=== PATIENT | female | born 1975 | race Caucasian/White ===

== ENCOUNTER → 2019-09-05 | Outpatient (CLI) | payer BC ==
[~2019-09-05] MED LIST: ACET325T38 PO; AMOX-358 PO; CATHETER FLUSH 10 ML SYR IV PRN; DICL100G18 TP; DIET75TA31 PO; DOXY100C2 PO; HOLD METFORMIN - RECEIVED CONTRAST 20 ML VIAL IV SCH; IOHEXOL 350 MG/ML 100 ML (OMNIPAQUE 350) VIAL IV ONE; LINA5TAB PO; LISI1TAB29 PO; NS 100 ML (IVPB) BAG IV ONE
[2019-09-05 15:07] LABS: HEMATOCRIT 40 % (35-52); HEMOGLOBIN 13.1 G/DL (11.5-16.0); MEAN CORPUSCULAR HEMOGLOBIN 27 PG (25-34); MEAN CORPUSCULAR HGB CONC 33 G/DL (32-36); MEAN CORPUSCULAR VOLUME 82 FL (80-99); MEAN PLATELET VOLUME 9.3 FL (7.4-10.4); PLATELET COUNT 253 10^3/uL (130-400); RED CELL DISTRIBUTION WIDTH 12.9 % (10.0-14.5); WHITE BLOOD COUNT 12.8 10^3/uL (4.3-11.0)
[2019-09-05 15:08] LABS: BASOPHILS # (AUTO) 0.1 10^3/uL (0.0-0.1); BASOPHILS % (AUTO) 1 % (0-10); EOSINOPHILS # (AUTO) 0.9 10^3/uL (0.0-0.3); EOSINOPHILS % (AUTO) 7 % (0-10); LYMPHOCYTES # (AUTO) 2.9 X 10^3 (1.0-4.0); LYMPHOCYTES % (AUTO) 23 % (12-44); MONOCYTES # (AUTO) 0.6 X 10^3 (0.0-1.0); MONOCYTES % (AUTO) 4 % (0-12); NEUTROPHILS # (AUTO) 8.4 X 10^3 (1.8-7.8); NEUTROPHILS % (AUTO) 66 % (42-75)
[2019-09-05 15:45] LABS: CARBON DIOXIDE 25 MMOL/L (21-32); CHLORIDE 96 MMOL/L (98-107); POTASSIUM 4.1 MMOL/L (3.6-5.0); SODIUM 136 MMOL/L (135-145)
[2019-09-05 15:46] LABS: ALANINE AMINOTRANSFERASE 17 U/L (0-55); ALBUMIN 4.3 GM/DL (3.2-4.5); ALKALINE PHOSPHATASE 133 U/L (40-136); BUN/CREATININE RATIO 16; CALCIUM 9.9 MG/DL (8.5-10.1); CREATININE SERUM 0.69 MG/DL (0.60-1.30); GFR ESTIMATED > 60; GLUCOSE 138 MG/DL (70-105); TOTAL PROTEIN 8.3 GM/DL (6.4-8.2)
[2019-09-05 15:49] LABS: BILIRUBIN,TOTAL 0.3 MG/DL (0.1-1.0)
--- NOTE | 2019-09-05 16:21 | Diagnostic Imaging Report ---
EXAMINATION: CT Abdomen and Pelvis with intravenous contrast. TECHNIQUE: Multiple contiguous axial images were obtained through the abdomen and pelvis after the uneventful administration of intravenous contrast. All CT scans use one or more of the following dose optimizing techniques: automated exposure control, MA and/or KvP adjustment based on a patient size and exam type, or iterative reconstruction. HISTORY: LT INGUINAL PAIN COMPARISON: None available. FINDINGS: Limited views of the lower thorax are unremarkable. The liver is normal without focal lesion. There is no biliary ductal dilation. Gallbladder is normal. Pancreas is normal. Spleen is normal. Adrenal glands are normal. The kidneys are normal. There is no hydronephrosis. Urinary bladder is normal. Uterus is enlarged, likely due to fibroids but poorly evaluated on CT. No thrombosis is seen within the inferior vena cava or iliac veins. There are no dilated loops of large or small bowel. No obstruction or inflammation. No free fluid or air. No abdominal or pelvic lymphadenopathy. There is however left inguinal lymphadenopathy with lymph nodes measuring up to 2.1 x 3.1 cm. Aorta is normal in caliber without aneurysm. There are no suspicious osseous lesions. IMPRESSION: 1. Left inguinal lymphadenopathy which may be related to an inflammatory process in the left leg. Dictated by: Dictated on workstation # [id number]
== END ==
LOC: LAB FS 14:33
PROVIDERS: ATTEND Nurse Practitioner Family
DX: R59.0 Localized enlarged lymph nodes (principal); I80.9 Phlebitis and thrombophlebitis of unspecified site; R10.32 Left lower quadrant pain; L03.116 Cellulitis of left lower limb
CPT/HCPCS: 36415; 74177; 80053; 85025

== ENCOUNTER → 2019-09-12 | Outpatient (CLI) | payer BC ==
[~2019-09-12] MED LIST changes: -CATHETER FLUSH 10 ML SYR IV PRN; -HOLD METFORMIN - RECEIVED CONTRAST 20 ML VIAL IV SCH; -IOHEXOL 350 MG/ML 100 ML (OMNIPAQUE 350) VIAL IV ONE; -NS 100 ML (IVPB) BAG IV ONE
[2019-09-12 13:10] LABS: HEMOGLOBIN 11.3 G/DL (11.5-16.0); MEAN CORPUSCULAR HEMOGLOBIN 27 PG (25-34); WHITE BLOOD COUNT 12.1 10^3/uL (4.3-11.0)
[2019-09-12 13:11] LABS: BASOPHILS % (AUTO) 0 % (0-10); EOSINOPHILS # (AUTO) 0.3 10^3/uL (0.0-0.3); EOSINOPHILS % (AUTO) 3 % (0-10); HEMATOCRIT 35 % (35-52); LYMPHOCYTES # (AUTO) 2.3 X 10^3 (1.0-4.0); LYMPHOCYTES % (AUTO) 19 % (12-44); MEAN CORPUSCULAR HGB CONC 32 G/DL (32-36); MEAN CORPUSCULAR VOLUME 84 FL (80-99); MEAN PLATELET VOLUME 9.2 FL (7.4-10.4); MONOCYTES # (AUTO) 0.7 X 10^3 (0.0-1.0); MONOCYTES % (AUTO) 6 % (0-12); NEUTROPHILS # (AUTO) 8.6 X 10^3 (1.8-7.8); NEUTROPHILS % (AUTO) 71 % (42-75); PLATELET COUNT 277 10^3/uL (130-400); RED CELL DISTRIBUTION WIDTH 12.9 % (10.0-14.5)
[2019-09-12 13:12] LABS: BASOPHILS # (AUTO) 0.1 10^3/uL (0.0-0.1)
[2019-09-12 13:23] LABS: BAND NEUTROPHILS 3 %; BASOPHILS % (MANUAL) 2 %; EOSINOPHILS % (MANUAL) 1 %; LYMPHOCYTES % (MANUAL) 18 %; MONOCYTES % (MANUAL) 7 %; NEUTROPHILS % (MANUAL) 69 %
== END ==
LOC: LAB FS 12:20
PROVIDERS: ATTEND Nurse Practitioner
DX: R50.9 Fever, unspecified (principal)
CPT/HCPCS: 36415; 85007; 85027

== ENCOUNTER → 2019-10-06 | Outpatient (CLI) | payer BC ==
--- NOTE | 2019-10-06 17:05 | Diagnostic Imaging Report ---
PROCEDURE: US Non-ob pelvis comp/trans. TECHNIQUE: Multiple realtime grayscale images were obtained of the pelvis in various projections endovaginally. Transabdominal imaging was also performed. INDICATION: Dysfunctional uterine bleeding. FINDINGS: Uterus measures 11.8 x 8.9 x 9.1 cm. Uterus is anteverted. There is a complex mass in the left fundus measuring 7.5 x 6.8 x 5.5 cm. This likely reflects degenerating fibroid, although other etiology cannot be excluded. Endometrial thickness is 1.04 cm. There is a 1.5 cm nabothian cyst. Both ovaries are normal in size and morphology and demonstrate normal blood flow. There are no adnexal masses. There is no free pelvic fluid. IMPRESSION: Complex mass in the uterus measuring up to 7.5 x 6.75 x 5.5 cm. This is likely degenerating fibroid, although other etiology certainly cannot be excluded. This can be further characterized with gadolinium-enhanced MRI. Incidental nabothian cyst. Otherwise, unremarkable pelvic ultrasound. Dictated by: Dictated on workstation # [id number]
== END ==
LOC: RAD 13:37
PROVIDERS: ATTEND Obstetrics & Gynecology
DX: N85.9 Noninflammatory disorder of uterus, unspecified (principal); N93.8 Other specified abnormal uterine and vaginal bleeding
CPT/HCPCS: 76830; 76856

== ENCOUNTER 2020-01-27 05:44 | Outpatient (RCR) | payer BC ==
[~2020-01-27] VITALS: Ht 170.2 cm; Wt 141.4 kg
== END 2020-01-27 11:01 | disposition home or self-care (01) ==
LOC: PREOP 05:44
PROVIDERS: ATTEND Obstetrics & Gynecology
DX: Z01.818 Encounter for other preprocedural examination (principal)

== ENCOUNTER 2020-02-02 09:22 | Day surgery (SDC) | payer BC ==
[2020-02-02] VITALS (10 sets, daily range): BP systolic 99–147; BP diastolic 50–85
[~2020-02-02] VITALS: Ht 170.2 cm; Wt 141.4 kg
[2020-02-02] MEDS ORDERED: LACTATED RINGERS 1,000 ML IV PRN (09:29)
--- OUTSIDE RECORDS SUMMARY | 2020-02-02 09:51 | XMS REPORT ---
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 Active 41362770 Problem Type 2 diabetes mellitus wit hout complication, without long-term current use of insulin E11.9 Active 198622801 Problem Chronic seasonal allergic rhinitis, unspecified trigger J30.2 Active 378626849 Problem Essential hypertension I10 Active 88608964 Problem Hammertoe of left foot M20.42 Active 557648687 Problem 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 Active 188802433 Problem Dysthymia F34.1 Active 12841005 Problem Thrombophlebitis of superficial veins of left lower ex tremity I80.02 Active [id number] Problem Lumbar disc disease M51.9 Active 74945952 Problem Hammertoe of right foot M20.41 Active 187651733 Problem Skin tags, multiple acquired L91.8 A ctive 782229594 Problem Irregular menstrual bleeding N92.6 A ctive 42366988 Problem Migraine without status migr ainosus, not intractable, unspecified migraine type G43.909 Active 83377488 ALLERGIES No Information ENCOUNTERS Encounter Location Date Diagnosis [facility] [address] [facility] [id number] [place] [id number] December, OUTREACH [facility] [address] [address] [id number] [address] Nov, Dental examination Z01.20 ; Oral health maintenance status requiring routine preventive dental care K08.9 ; Caries K02.9 and Gingivitis K05.10 [facility] [address] [facility] [id number] [address] [address] 16 Nov, 2019 [facility] [place] [address] [facility] [id number] [place] [address] 15 Nov, 2019 Essential hypertension I10 and Thrombophlebitis of superficial veins of left lower extremity I80.02 [facility] [place] [address] [facility] [id number] [place], [place] [address] 14 Nov, [address] [id number] [place] [address] 13 Nov, 2019 Essential hypertension I10 a nd Dizziness R42 [facility] [place] [address] [facility] [id number] [place] [address] 13 Nov, 2019 Dizziness R42 [facility] [place] [address] [facility] [id number] [place] [address] 09 Nov, 2019 Essential hypertension I10 [facility] [place] [address] [facility] [id number] [place] [address] 08 Nov, 2019 Essential hypertension I10 and Dizziness R42 [address] [id number] [place] [address] Oct, Post-infectious glomerulonep hritis N05.[address] [id number] [place] [address] Oct, Post-infectious glomerulonep hritis N05.[address] [id number], [place] [address] Sep, Post-infectious glomerulonep hritis N05.[address] [id number] [place] [address] Sep, Post-infectious glomerulonep hritis N05.9 [facility] [address] [facility] [id number] [place] [address] 18 Sep, 2019 Fever, unspecified fever cause R50.[address] [id number] [place] [address] 13 Sep, 2019 Post-infectious glomerulonep hritis N05.9 [facility] [address] [id number] [place] [address] 12 Sep, 2019 Thrombophlebitis of superfic ial veins of left lower extremity I80.[address] [id number], [place] [address] 11 Sep, 2019 Thrombophlebitis of superfic ial veins of left lower extremity I80.02 and 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 [id number], [place] [address] 11 Sep, 2019 Thrombophlebitis of superfic ial veins of left lower extremity I80.02 and 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 [id number], [place] [address] 10 Sep, 2019 Thrombophlebitis I80.9 ; Acu te kidney failure N17.9 and Flank pain R10.[address] [id number], [place] [address] 06 Sep, [address] [id number], [place] [address] 06 Sep, 2019 Acute renal failure, unspeci fied acute renal failure type N17.[address] [id number] [place] [address] 05 Sep, [address] [id number], [place] [address] 05 Sep, 2019 Acute renal failure, unspeci fied acute renal failure type N17.9 ; Varicose veins of both lower extremities with complications I83.893 and Thrombophlebitis of superficial veins of left lower extremity I80.02 [facility] [address] [facility] [id number] [place] [address] 05 Sep, 2019 Acute renal failure, unspeci fied acute renal failure type N17.9 [facility] [address] [facility] [id number] [place] [address] Sep, [facility] [address] [facility] [id number] [place] [address] Sep, [address] [id number] [place] [address] Sep, Acute kidney failure N17.[address] [id number], [place] [address] Sep, Acute kidney failure N17.[address] [id number], [place] [address] Aug, Fever, unspecified fever cau se R50.[address] [id number] [place] [address] Aug, Cellulitis of left lower ext remity L03.116 and Thrombophlebitis I80.9 [facility] [address] [facility] [id number] [place] [address] Aug, [address] [id number], [place] [address] Aug, [address] [id number], [place] [address] Aug, Thrombophlebitis I80.9 ; Lef t inguinal pain R10.32 and Cellulitis of left lower extremity L03.[address] [id number], [place] [address] Aug, Cellulitis of left lower ext remity L03.[address] [id number], [place] [address] Aug, [address] [id number], [place] [address] Aug, [address] [id number], [place] [address] Aug, Thrombophlebitis of superfic ial veins of left lower extremity I80.02 and Cellulitis of left lower extremity L03.116 [facility] [address] [id number], [place] [address] Aug, Cellulitis of left lower ext remity L03.116 and Thrombophlebitis of superficial veins of left lower extremity I80.02 [facility] [address] [id number], [place] [address] Jul, Type 2 diabetes mellitus wit hout complication, without long-term current use of insulin E11.9 ; Essential hypertension I10 ; Sore throat J02.9 ; Skin tags, multiple acquired L91.8 and Irregular menstrual bleeding N92.6 [facility] [address] 340 [id number], [place] [address] Jul, [address] [id number], [place] [address] May, Mixed hyperlipidemia E78.2 a nd Encounter for examination for insurance purposes Z02.6 [facility] [address] 340 [id number], [place] [address] May, Encounter for examination fo r insurance purposes Z02.6 [facility] [address] [id number], [place] [address] Apr, Nasopharyngitis J00 [facility] [address] [id number], [place] [address] December, [facility] [address] 340 [id number], [place] [address] December, Tonsillitis J03.90 [facility] [address] 340 [id number], [place] [address] Nov, Pharyngitis due to Streptoco ccus species J02.0 and Migraine without status migrainosus, not intractable, unspecified migraine type G43.909 [facility] [address] [id number] [place] [address] Nov, [facility] [address] [id number] [place] [address] Nov, Strep pharyngitis J02.0 ; So re throat J02.9 and Morbid obesity E66.01 [facility] [address] [id number] [place] [address] Nov, TB skin/subcutaneous, other test A18.4 [place] [address] [address] 11 Jul, 2018 Weight loss counseling, enco unter for Z71.3 [place] [address] [address] Jun, [place] [address] [address] 14 Jun, 2018 Weight loss counseling, enco unter for Z71.3 ; Essential hypertension I10 ; Irregular menstrual bleeding N92.6 ; Skin tags, multiple acquired L91.8 ; Abdominal pain R10.9 and BMI 45.0-49.9, adult Z68.42 [place] [address] [address] Jun, Essential hypertension I10 [place] [address] [address] Jun, Dependent edema R60.9 [place] [address] [address] May, Type 2 diabetes mellitus wit hout complication, without long-term current use of insulin E11.9 [place] [address] [address] May, Type 2 diabetes mellitus wit hout complication, without long-term current use of insulin E11.9 ; Essential hypertension I10 ; Dependent edema R60.9 ; Encounter for weight management Z76.89 ; Skin tag L91.8 and BMI 50.0- 59.9, adult Z68.43 [place] [address] [address] Feb, [place] of foot L84 ; Hammertoe of right foot M20.41 ; Hammertoe of left foot M20.42 and Type 2 diabetes mellitus with diabetic neuropathy, unspecified whether education consultant insulin use E11.[address] [address] Feb, [place] [address] [address] Jan, [address] [address] Jan, Peripheral edema R60.9 ; Ess ential hypertension I10 and BMI 50.0- 59.9, adult Z68.[address] [address] December, [place] [address] [address] December, [address] [address] December, Upper respiratory infection with cough and congestion J06.9 ; Cough R05 ; Skin tags, multiple acquired L91.8 and BMI 45.0-49.9, adult Z68.[address] [address] Nov, Mixed hyperlipidemia E78.[address] [address] Nov, [address] [address] Nov, Establishing care with tiera guadarrama, encounter for Z76.89 ; Type 2 diabetes mellitus without complication, without long-term current use of insulin E11.9 ; Essential hypertension I10 ; Dysthymia F34.1 ; Chronic seasonal allergic rhinitis, unspecified trigger J30.2 ; BMI 45.0-49.9, adult Z68.42 ; Morbid obesity due to excess calories E66.01 ; Toe pain, left M79.675 and Varicose veins of both lower extremities with complications I83.893 [place] [address] [place] [id number] [address] [place] [address] Oct, Chronic seasonal allergic rh initis, unspecified trigger J30.2 ; Cough due to bronchospasm J98.01 and BMI 45.0-49.9, adult Z68.42 [place] [address] [address] Oct, Type 2 diabetes mellitus wit hout complication, without long-term current use of insulin E11.9 [place] [address] [address] Jun, Type 2 diabetes mellitus wit hout complication, without long-term current use of insulin E11.9 ; Dysthymia F34.1 ; Lumbar disc disease M51.9 ; Chronic seasonal allergic rhinitis, unspecified trigger J30.2 and BMI 40.0-44.9, adult Z68.41 [place] [address] [address] May, [place] [address] [place] [id number] [place] [address] Feb, Dysthymia F34.1 ; Lumbar dis c disease M51.9 and Type 2 diabetes mellitus without complication, without long-term current use of insulin E11.9 [place] [address] [place] [id number] [address] [place] [address] Feb, Type 2 diabetes mellitus wit hout complication, without long-term current use of insulin E11.9 [place] [address] [place] [id number] [address] [place] [address] December, Seasonal allergic rhinitis, unspecified allergic rhinitis trigger J30.2 [place] [address] [address] Nov, [facility] [address] [place] [address] Nov, Dysthymia F34.1 and Pre-diab etes R73.03 [facility] [address] [place] [id number] [address] [place] [address] 15 Oct, 2016 Dysthymia F34.1 [place] [address] [address] 07 Jun, 2016 Varicose veins of both lower extremities with complications I83.893 and Lumbar disc disease M51.9 [place] [address] [address] Mar, [place] [address] [address] Oct, [place] [address] [address] Jun, Insect bite of abdomen, init ial encounter S30.871A and Encounter for immunization Z23 [address] [address] Apr, [place] [address] [address] Apr, 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 ; Lumbar back pain 724.2 ; Pre-diabetes 790.29 and Left knee pain 719.46 [place] [address] [address] Mar, [place] [address] [place] [id number] [place] [address] Mar, Cough 786.2 and Drug-induced nausea and vomiting 787.01 [place] [address] [place] [id number] [address] [place] [address] Mar, [facility] [address] [address] Mar, Elevated glucose 790.29 [facility] [address] [id number] [address] [place] [address] Mar, [facility] [address] [id number] [address] [place] [address] Mar, Elevated glucose 790.29 [facility] [address] [id number] [address] [place] [address] Mar, [facility] [address] [id number] [address] [place] [address] Mar, Elevated glucose 790.29 and Degenerative arthritis of lumbar spine 721.3 [place] [address] [id number] [address] [place] [address] Feb, Elevated glucose 790.29 [place] [address] [id number] [address] [place] [address] Feb, Lumbar back pain 724.2 [place] [address] [id number] [address] [place] [address] Feb, Lumbar back pain 724.2 [place] [address] [facility] [id number] [address] [place] [address] Feb, Routine gynecological examin ation V72.31 ; Pap test, as part of routine gynecological examination V76.2 ; Breast cancer screening V76.10 ; Irregular menses 626.4 ; Dysmenorrhea 625.3 and Routine physicl lab exam V72.62 [place] [address] [id number] [address] [place] [address] Jan, Eustachian tube dysfunction 381.81 [place] [address] [id number] [address] [place] [address] Nov, [place] [address] [id number] [address] [place] [address] Nov, [place] [address] [facility] [id number] [address] [place] [address] Sep, [facility] [address] [id number] [address] [place] [address] Sep, [facility] [address] [id number] [address] [place] [address] Aug, [facility] [address] [id number] [address] [place] [address] Aug, [facility] [address] [id number] [address] [place] [address] Jun, [facility] [address] [facility] [id number] [address] [place] [address] Jun, [facility] [address] [facility] [id number] [address] [place] [address] Jun, [facility] [address] [facility] [id number] [address] [place] [address] Jun, IMMUNIZATIONS No Known Immunizations SOCIAL HISTORY Never Assessed REASON FOR VISIT PLAN OF CARE VITAL SIGNS MEDICATIONS Unknown Medications RESULTS No Results PROCEDURES No Known procedures INSTRUCTIONS MEDICATIONS ADMINISTERED No Known Medications MEDICAL (GENERAL) HISTORY Type Description Date Medical History Lumbar disc disease Medical History Varicose veins of both lower extremities with complications Medical History Dysthymia Medical History Severe Degenerative Arthritis LS Medical History Controlled type 2 diabetes m ellitus without complication, without long-term current use of insulin Medical History Chronic seasonal allergic rhinitis, unsp ecified trigger Medical History Essential hypertension Medical History Mixed hyperlipidemia Medical History Skin tags, multiple acquired Medical History Hammertoe of right foot Medical History Hammertoe of left foot Medical History Irregular menstrual bleeding Medical History Migraine without status migr ainosus, not intractable, unspecified migraine type Medical History Superficial clot Surgical History tonsillectomy and adenoidectomy Hospitalization History see surgeries Hospitalization History childbirth x2 Hospitalization History [facility] Hospitalization History [facility]
--- OUTSIDE RECORDS SUMMARY | 2020-02-02 09:51 | XMS REPORT ---
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 Active 13700437 Problem Type 2 diabetes mellitus wit hout complication, without long-term current use of insulin E11.9 Active 918624449 Problem Chronic seasonal allergic rhinitis, unspecified trigger J30.2 Active 956167977 Problem Essential hypertension I10 Active 94034134 Problem Hammertoe of left foot M20.42 Active 942172235 Problem 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 Active 013193741 Problem Dysthymia F34.1 Active 57555866 Problem Thrombophlebitis of superficial veins of left lower ex tremity I80.02 Active [id number] Problem Lumbar disc disease M51.9 Active 57144815 Problem Hammertoe of right foot M20.41 Active 331445054 Problem Skin tags, multiple acquired L91.8 A ctive 286568282 Problem Irregular menstrual bleeding N92.6 A ctive 79396263 Problem Migraine without status migr ainosus, not intractable, unspecified migraine type G43.909 Active 62353627 ALLERGIES No Information ENCOUNTERS Encounter Location Date Diagnosis [facility] [address] [address] [id number] [address] 22 Nov, 2019 Dental examination Z01.20 ; Oral health maintenance status requiring routine preventive dental care K08.9 ; Caries K02.9 and Gingivitis K05.10 [facility] [address] [id number] [address] [place] [address] 16 Nov, 2019 [facility] [address] [id number] [place], [place] [address] 15 Nov, 2019 Essential hypertension I10 and Thrombophlebitis of superficial veins of left lower extremity I80.02 [facility] [address] [facility] [id number] [place] [address] 14 Nov, [address] [id number] [place] [address] 13 Nov, 2019 Essential hypertension I10 a nd Dizziness R42 [facility] [address] [facility] [id number] [place] [address] 13 Nov, 2019 Dizziness R42 [facility] [address] [facility] [id number] [place] [address] 09 Nov, 2019 [facility]ential [facility] I10 [facility] [address] [facility] [id number] [place], [place] [address] 08 Nov, 2019 Essential hypertension I10 and Dizziness R42 [address] [id number] [place] [address] 12 Oct, 2019 Post-infectious glomerulonep hritis N05.[address] [id number] [address] Oct, Post-infectious glomerulonep hritis N05.[id number], [place] [address] Sep, Post-infectious glomerulonep hritis N05.[address] [id number] [place] [address] Sep, Post-infectious glomerulonep hritis N05.9 [facility] [address] [facility] [id number] [place] [address] 18 Sep, 2019 Fever, unspecified fever cause R50.[address] [id number] [place] [address] 13 Sep, 2019 Post-infectious glomerulonep hritis N05.9 [facility] [address] [facility] [id number] [address] [place] [address] 12 Sep, 2019 Thrombophlebitis of superfic ial veins of left lower extremity I80.[address] 340[address] [id number] [address] 11 Sep, 2019 Thrombophlebitis of superfic ial veins of left lower extremity I80.02 and 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 [id number], [place] [address] 11 Sep, 2019 Thrombophlebitis of superfic ial veins of left lower extremity I80.02 and 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 [id number], [place] [address] 10 Sep, 2019 Thrombophlebitis I80.9 ; Acu te kidney failure N17.9 and Flank pain R10.9 [address] [id number] [address] Sep, [address] [id number] [address] 06 Sep, 2019 Acute renal failure, unspeci fied acute renal failure type N17.[address] 340[address] [id number], [place] [address] 05 Sep, 2019 [address] [id number] [address] Sep, Acute renal failure, unspeci fied acute renal failure type N17.9 ; Varicose veins of both lower extremities with complications I83.893 and Thrombophlebitis of superficial veins of left lower extremity I80.02 [facility] [address] [facility] [id number] [address] [place] [address] 05 Sep, 2019 Acute renal failure, unspeci fied acute renal failure type N17.9 [facility] [address] [facility] [id number] [address] [place] [address] 05 Sep, 2019 [address] [address] [address] [facility] [id number] [address] [place] [address] Sep, [address] [id number], [place] [address] Sep, Acute kidney failure N17.[address] [id number] [place] [address] Sep, Acute kidney failure N17.[address] [id number], [place] [address] Aug, Fever, unspecified fever cau se R50.[address] [id number], [place] [address] Aug, Cellulitis of left lower ext remity L03.116 and Thrombophlebitis I80.9 [facility] [address] [facility] [id number] [place] [address] Aug, [address] 340[address] [id number], [place] [address] Aug, [address] [id number], [place] [address] Aug, Thrombophlebitis I80.9 ; Lef t inguinal pain R10.32 and Cellulitis of left lower extremity L03.[address] [id number] [place] [address] Aug, Cellulitis of left lower ext remity L03.[address] [id number] [place] [address] Aug, [address] [id number], [place] [address] Aug, [address] 340[address] [id number], [place] [address] Aug, Thrombophlebitis of superfic ial veins of left lower extremity I80.02 and Cellulitis of left lower extremity L03.116 [facility] [address] 340B [id number] [place] [address] Aug, Cellulitis of left lower ext remity L03.116 and Thrombophlebitis of superficial veins of left lower extremity I80.02 [facility] [place] [address] 340[address] [id number] [place] [address] Jul, Type 2 diabetes mellitus wit hout complication, without long-term current use of insulin E11.9 ; Essential hypertension I10 ; Sore throat J02.9 ; Skin tags, multiple acquired L91.8 and Irregular menstrual bleeding N92.6 [facility] [address] 340[address] [id number], [place] [address] Jul, [facility] [place] [address] 340[address] [id number], [place] [address] May, Mixed hyperlipidemia E78.2 a nd Encounter for examination for insurance purposes Z02.6 [facility] [address] 340[address] [id number], [place] [address] May, Encounter for examination fo r insurance purposes Z02.6 [facility] [address] 340[address] [id number] [place] [address] Apr, Nasopharyngitis J00 [facility] [address] [id number] [place] [address] December, [facility] [address] [id number] [place] [address] December, Tonsillitis J03.90 [facility] [place] [facility] [address] [id number] [place] [address] Nov, Pharyngitis due to Streptoco ccus species J02.0 and Migraine without status migrainosus, not intractable, unspecified migraine type G43.909 [facility] [address] [id number] [place] [address] Nov, [facility] [address] 340 [id number] [place] [address] 27 Nov, 2018 Strep pharyngitis J02.0 ; So re throat J02.9 and Morbid obesity E66.01 [facility] [address] [id number] [place] [address] 13 Nov, 2018 TB skin/subcutaneous, other test A18.4 [id number] [place] [address] Jul, Weight loss counseling, enco unter for Z71.3 [address] [address] Jun, [address] [address] 14 Jun, 2018 Weight loss counseling, enco unter for Z71.3 ; Essential hypertension I10 ; Irregular menstrual bleeding N92.6 ; Skin tags, multiple acquired L91.8 ; Abdominal pain R10.9 and BMI 45.0-49.9, adult Z68.42 [address] [address] Jun, Essential hypertension I10 [address] [address] Jun, Dependent edema R60.9 [address] [address] May, Type 2 diabetes mellitus wit hout complication, without long-term current use of insulin E11.9 [address] [place] [address] [id number] [place] [address] May, Type 2 diabetes mellitus wit hout complication, without long-term current use of insulin E11.9 ; Essential hypertension I10 ; Dependent edema R60.9 ; Encounter for weight management Z76.89 ; Skin tag L91.8 and BMI 50.0- 59.9, adult Z68.43 [id number] [place] [address] Feb, Codorus of foot L84 ; Hammertoe of right foot M20.41 ; Hammertoe of left foot M20.42 and Type 2 diabetes mellitus with diabetic neuropathy, unspecified whether rn long term care insulin use E11.40 [address] [address] Feb, [address] [address] Jan, [address] [address] Jan, Peripheral edema R60.9 ; Ess ential hypertension I10 and BMI 50.0- 59.9, adult Z68.[address] [address] December, [address] [address] December, [address] [address] December, Upper respiratory infection with cough and congestion J06.9 ; Cough R05 ; Skin tags, multiple acquired L91.8 and BMI 45.0-49.9, adult Z68.[address] [address] Nov, Mixed hyperlipidemia E78.[address] [address] Nov, [address] [address] Nov, Establishing care with tiera guadarrama encounter for Z76.89 ; Type 2 diabetes mellitus without complication, without long-term current use of insulin E11.9 ; Essential hypertension I10 ; Dysthymia F34.1 ; Chronic seasonal allergic rhinitis, unspecified trigger J30.2 ; BMI 45.0-49.9, adult Z68.42 ; Morbid obesity due to excess calories E66.01 ; Toe pain, left M79.675 and Varicose veins of both lower extremities with complications I83.893 [address] [address] Oct, Chronic seasonal allergic rh initis, unspecified trigger J30.2 ; Cough due to bronchospasm J98.01 and BMI 45.0-49.9, adult Z68.42 [address] [address] Oct, Type 2 diabetes mellitus wit hout complication, without long-term current use of insulin E11.9 [address] [address] Jun, Type 2 diabetes mellitus wit hout complication, without long-term current use of insulin E11.9 ; Dysthymia F34.1 ; Lumbar disc disease M51.9 ; Chronic seasonal allergic rhinitis, unspecified trigger J30.2 and BMI 40.0-44.9, adult Z68.41 [address] [address] May, [address] [address] Feb, Dysthymia F34.1 ; Lumbar dis c disease M51.9 and Type 2 diabetes mellitus without complication, without long-term current use of insulin E11.9 [address] [address] Feb, Type 2 diabetes mellitus wit hout complication, without long-term current use of insulin E11.9 [address] [place] [address] [id number] [address] [place] [address] December, Seasonal allergic rhinitis, unspecified allergic rhinitis trigger J30.2 [address] [id number] [place] [address] Nov, [address] [address] Nov, Dysthymia F34.1 and Pre-diab etes R73.03 [address] [place] [address] [id number] [address] [place] [address] 15 Oct, 2016 Dysthymia F34.1 [address] [address] 07 Jun, 2016 Varicose veins of both lower extremities with complications I83.893 and Lumbar disc disease M51.9 [address] [address] Mar, [address] [address] Oct, [address] [address] Jun, Insect bite of abdomen, init ial encounter S30.871A and Encounter for immunization Z23 [address] [place] [address] [id number] [address] [place] [address] Apr, [address] [address] Apr, 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 ; Lumbar back pain 724.2 ; Pre-diabetes 790.29 and Left knee pain 719.46 [address] [place] [id number] [address] [place] [address] Mar, [address] [address] Mar, Cough 786.2 and Drug-induced nausea and vomiting 787.01 [address] [address] Mar, [address] [place] [id number] [address] [place] [address] Mar, Elevated glucose 790.29 [address] [address] Mar, [facility] [address] [id number] [address] [place] [address] Mar, Elevated glucose 790.29 [facility] [address] [id number] [address] [place] [address] Mar, [facility] [address] [id number] [address] [place] [address] Mar, Elevated glucose 790.29 and Degenerative arthritis of lumbar spine 721.3 [facility] [address] [id number] [address] [place] [address] Feb, Elevated glucose 790.29 [facility] [address] [id number] [address] [place] [address] Feb, Lumbar back pain 724.2 [address] [id number] [address] [place] [address] Feb, Lumbar back pain 724.2 [facility] [address] [id number] [address] [place] [address] Feb, Routine gynecological examin ation V72.31 ; Pap test, as part of routine gynecological examination V76.2 ; Breast cancer screening V76.10 ; Irregular menses 626.4 ; Dysmenorrhea 625.3 and Routine physicl lab exam V72.62 [facility] [address] [id number] [address] [place] [address] Jan, Eustachian tube dysfunction 381.81 [facility] [address] [id number] [address] [place] [address] Nov, [facility] [address] [id number] [address] [place] [address] Nov, [facility] [address] [id number] [address] [place] [address] Sep, [facility] [address] [facility] [id number] [address] [place] [address] Sep, [facility] [address] [facility] [id number] [address] [place] [address] Aug, [facility] [address] [facility] [id number] [address] [place] [address] Aug, [facility] [address] [facility] [id number] [address] [place] [address] Jun, [facility] [address] [facility] [id number] [address] [place] [address] Jun, [facility] [address] [facility] [id number] [address] [place] [address] Jun, [facility] [address] [facility] [id number] [address] [place] [address] Jun, IMMUNIZATIONS No Known Immunizations SOCIAL HISTORY Never Assessed REASON FOR VISIT PLAN OF CARE VITAL SIGNS Height 67 in 2014-09-08 Weight 286.25 lbs 2014-09-08 Heart Rate 78 bpm 2014-09-08 Respiratory Rate 20 2014-09-08 Blood pressure systolic 152 mmHg 2014-09-08 Blood pressure diastolic 102 mmHg 2014-09-08 MEDICATIONS No Known Medications RESULTS No Results PROCEDURES Procedure Date Ordered Result Body Site LIPID PANEL Sep 08, 2014 REMOVAL OF SKIN TAGS Sep 08, 2014 VENIPUNCT, ROUTINE* Sep 08, 2014 INSTRUCTIONS MEDICATIONS ADMINISTERED No Known Medications MEDICAL [...] Hospitalization History childbirth x2 Hospitalization History [facility] Hospitalization History [facility]
--- OUTSIDE RECORDS SUMMARY | 2020-02-02 09:51 | XMS REPORT ---
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 Active 68864886 Problem Type 2 diabetes mellitus wit hout complication, without long-term current use of insulin E11.9 Active 872196488 Problem Chronic seasonal allergic rhinitis, unspecified trigger J30.2 Active 269570070 Problem Essential hypertension I10 Active 32006527 Problem Hammertoe of left foot M20.42 Active 141261788 Problem TB skin/subcutaneous, other test A18.4 Active 115513042 Problem Dysthymia F34.1 Active 37342637 Problem Migraine without status migr ainosus, not intractable, unspecified migraine type G43.909 Active 07059228 Problem Lumbar disc disease M51.9 Active 99362670 Problem Hammertoe of right foot M20.41 Active 702787370 Problem Skin tags, multiple acquired L91.8 A ctive 636786499 Problem Cough R05 Active 76909920 Problem Irregular menstrual bleeding N92.6 A ctive [id number] ALLERGIES No Information ENCOUNTERS Encounter Location Date Diagnosis [facility] [address] [facility] [place] [address] December, Tonsillitis J03.90 [facility] [address] [facility] [place] [address] Nov, Pharyngitis due to Streptococcus species J02.0 and Migraine without status migrainosus, not intractable, unspecified migraine type G43.909 [facility] [address] [facility] [place] [address] Nov, [facility] [address] [facility] [place] [address] Nov, Strep pharyngitis J02.0 ; Sore throat J0 2.9 and Morbid obesity E66.01 [facility] [address] [facility] [place] [address] 13 Nov, 2018 TB skin/subcutaneous, other test A18.4 [place] [address] [facility] [id number] [address] [place] [address] 11 Jul, 2018 Weight loss counseling, enco unter for Z71.3 [place] [address] [place] [id number] [address] [place] [address] Jun, [place] [id number] [place] [address] 14 Jun, 2018 Weight loss counseling, enco unter for Z71.3 ; Essential hypertension I10 ; Irregular menstrual bleeding N92.6 ; Skin tags, multiple acquired L91.8 ; Abdominal pain R10.9 and BMI 45.0-49.9, adult Z68.42 [place] [address] [place] [id number] [address] [place] [address] Jun, Essential hypertension I10 [place] [id number] [place] [address] Jun, Dependent edema R60.9 [place] [id number] [place] [address] May, Type 2 diabetes mellitus wit hout complication, without long-term current use of insulin E11.9 [place] [address] [place] [id number] [address] [place] [address] 17 May, 2018 Type 2 diabetes mellitus wit hout complication, without long-term current use of insulin E11.9 ; Essential hypertension I10 ; Dependent edema R60.9 ; Encounter for weight management Z76.89 ; Skin tag L91.8 and BMI 50.0- 59.9, adult Z68.[address] [id number] [address] [place] [address] Feb, [place] of foot L84 ; Hammertoe of right foot M20.41 ; Hammertoe of left foot M20.42 and Type 2 diabetes mellitus with diabetic neuropathy, unspecified whether prison insulin use E11.40 [place] [address] [address] Feb, [place] [address] [address] Jan, [place] [address] [address] Jan, Peripheral edema R60.9 ; Ess ential hypertension I10 and BMI 50.0- 59.9, adult Z68.[address] [address] December, [address] [address] December, [place] [address] [address] December, Upper respiratory infection with cough and congestion J06.9 ; Cough R05 ; Skin tags, multiple acquired L91.8 and BMI 45.0-49.9, adult Z68.[address] [address] Nov, Mixed hyperlipidemia E78.[address] [address] Nov, [address] [address] Nov, Establishing care with tiera guadarrama, encounter [...] of both lower extremities with complications I83.893 [place] [address] [facility] [id number] [address] [place] [address] Oct, Chronic seasonal allergic rh initis, unspecified trigger J30.2 ; Cough due to bronchospasm J98.01 and BMI 45.0-49.9, adult Z68.42 [place] [address] [facility] [id number] [address] [place] [address] Oct, Type 2 diabetes mellitus wit hout complication, without long-term current use of insulin E11.9 [place] [address] [facility] [id number] [address] [place] [address] Jun, Type 2 diabetes mellitus wit hout complication, without long-term current use of insulin E11.9 ; Dysthymia F34.1 ; Lumbar disc disease M51.9 ; Chronic seasonal allergic rhinitis, unspecified trigger J30.2 and BMI 40.0-44.9, adult Z68.41 [place] [address] [facility] [id number] [address] [place] [address] May, [place] [address] [facility] [id number] [address] [place] [address] Feb, Dysthymia F34.1 ; Lumbar dis c disease M51.9 and Type 2 diabetes mellitus without complication, without long-term current use of insulin E11.9 [place] [address] [facility] [id number] [address] [place] [address] Feb, Type 2 diabetes mellitus wit hout complication, without long-term current use of insulin E11.9 [place] [address] [facility] [id number] [address] [place] [address] December, Seasonal allergic rhinitis, unspecified allergic rhinitis trigger J30.2 [place] [address] [facility] [id number] [address] [place] [address] Nov, [place] [address] [facility] [id number] [address] [place] [address] Nov, Dysthymia F34.1 and Pre-diab etes R73.03 [facility] [address] [address] 15 Oct, 2016 Dysthymia F34.1 [place] [address] [address] 07 Jun, 2016 Varicose veins of both lower extremities with complications I83.893 and Lumbar disc disease M51.9 [place] [address] [address] Mar, [place] [address] [address] Oct, [place] [address] [address] Jun, Insect bite of abdomen, init ial encounter S30.871A and Encounter for immunization Z23 [place] [address] [address] Apr, [place] [address] [address] 09 Apr, 2015 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 ; Lumbar back pain 724.2 ; Pre-diabetes 790.29 and Left knee pain 719.46 [place] [address] [address] Mar, [place] [address] [address] Mar, Cough 786.2 and Drug-induced nausea and vomiting 787.01 [place] [address] [address] Mar, [place] [address] [address] Mar, Elevated glucose 790.29 [place] [address] [address] Mar, [facility] [address] [id number] [address] [place] [address] Mar, Elevated glucose 790.29 [facility] [address] [id number] [address] [place] [address] Mar, [facility] [address] [facility] [id number] [address] [place] [address] Mar, Elevated glucose 790.29 and Degenerative arthritis of lumbar spine 721.3 [facility] [address] [id number] [address] [place] [address] Feb, Elevated glucose 790.29 [facility] [address] [facility] [id number] [address] [place] [address] Feb, Lumbar back pain 724.2 [place] [address] [facility] [id number] [address] [place] [address] Feb, Lumbar back pain 724.2 [place] [address] [facility] [id number] [address] [place] [address] Feb, Routine gynecological examin ation V72.31 ; Pap test, as part of routine gynecological examination V76.2 ; Breast cancer screening V76.10 ; Irregular menses 626.4 ; Dysmenorrhea 625.3 and Routine physicl lab exam V72.62 [place] [address] [facility] [id number] [address] [place] [address] Jan, Eustachian tube dysfunction 381.81 [facility] [address] [facility] [id number] [address] [place] [address] Nov, [facility] [address] [id number] [address] [place] [address] Nov, [place] [address] [facility] [id number] [address] [place] [address] Sep, [facility] [address] [facility] [id number] [address] [place] [address] Sep, [facility] [address] [facility] [id number] [address] [place] [address] Aug, [facility] [address] [facility] [id number] [address] [place] [address] Aug, [facility] [address] [facility] [id number] [address] [place] [address] Jun, [facility] [address] [facility] [id number] [address] [place] [address] Jun, [facility] [address] [facility] [id number] [address] [place] [address] Jun, [facility] [address] [facility] [id number] [address] [place] [address] Jun, IMMUNIZATIONS No Known Immunizations SOCIAL HISTORY Never Assessed REASON FOR VISIT EMR-[facility] [place] PLAN OF CARE VITAL SIGNS MEDICATIONS No Known Medications RESULTS No Results PROCEDURES No Known procedures INSTRUCTIONS MEDICATIONS ADMINISTERED No Known Medications MEDICAL (GENERAL) HISTORY Type Description Date Medical History Elevated Insulin Level Medical History Severe Degenerative Arthritis LS Medical History Chronic Back Pain Medical History Prediabetic 6.1 AIC Surgical History tonsillectomy and adenoidectomy Hospitalization History see surgeries
--- OUTSIDE RECORDS SUMMARY | 2020-02-02 09:51 | XMS REPORT ---
Author Author Aparna RIDLEY Organization 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 Active 88177208 Problem Type 2 diabetes mellitus wit hout complication, without long-term current use of insulin E11.9 Active 932922889 Problem Chronic seasonal allergic rhinitis, unspecified trigger J30.2 Active 048377389 Problem Essential hypertension I10 Active 14690733 Problem Hammertoe of left foot M20.42 Active 819902219 Problem 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 Active 754000775 Problem Dysthymia F34.1 Active 82250206 Problem Thrombophlebitis of superficial veins of left lower ex tremity I80.02 Active [id number] Problem Lumbar disc disease M51.9 Active 42473154 Problem Hammertoe of right foot M20.41 Active 472288180 Problem Skin tags, multiple acquired L91.8 A ctive 142073957 Problem Irregular menstrual bleeding N92.6 A ctive 56727477 Problem Migraine without status migr ainosus, not intractable, unspecified migraine type G43.909 Active 41151590 ALLERGIES No Information ENCOUNTERS Encounter Location Date Diagnosis [facility] [address] [address] [id number] [address] 22 Nov, 2019 Dental examination Z01.20 ; Oral health maintenance status requiring routine preventive dental care K08.9 ; Caries K02.[address] [facility] [address] [id number] [address] [place] [address] 16 Nov, 2019 [facility] [address] [id number] [place], [place] [address] 15 Nov, 2019 Essential hypertension I10 and Thrombophlebitis of superficial veins of left lower extremity I80.02 [facility] [address] [facility] [id number] [place] [address] 14 Nov, [address] 340B [id number] [place] [address] 13 Nov, 2019 Essential hypertension I10 a nd Dizziness R42 [facility] [address] [facility] [id number] [place] [address] 13 Nov, 2019 Dizziness R42 [facility] [address] [facility] [id number] [place] [address] 09 Nov, [address] [facility] [address] [facility] [id number] [place] [address] 08 Nov, 2019 Essential hypertension I10 and Dizziness R42 [address] 340B [id number] [place] [address] 12 Oct, 2019 Post-infectious glomerulonep hritis N05.[address] [id number], [place] [address] Oct, Post-infectious glomerulonep hritis N05.[address] [id number], [place] [address] Sep, Post-infectious glomerulonep hritis N05.[address] 340[address] [id number] [place] [address] Sep, Post-infectious glomerulonep hritis N05.9 [facility] [address] [facility] [id number] [place] [address] 18 Sep, 2019 Fever, unspecified fever cause R50.[address] [id number] [place] [address] 13 Sep, 2019 Post-infectious glomerulonep hritis N05.9 [facility] [address] [facility] [id number] [address] [place] [address] 12 Sep, 2019 Thrombophlebitis of superfic ial veins of left lower extremity I80.[address] 340[address] [id number], [place] [address] 11 Sep, 2019 Thrombophlebitis of superfic ial veins of left lower extremity I80.02 and 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 340[address] [id number], [place] [address] 11 Sep, 2019 Thrombophlebitis of superfic ial veins of left lower extremity I80.02 and 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 340[address] [id number], [place] [address] 10 Sep, 2019 Thrombophlebitis I80.9 ; Acu te kidney failure N17.9 and Flank pain R10.9 [address] [id number] [address] Sep, [address] 340[address] [id number], [place] [address] 06 Sep, 2019 Acute renal failure, unspeci fied acute renal failure type N17.[address] 340[address] [id number], [place] [address] 05 Sep, 2019 [address] [id number], [place] [address] Sep, Acute renal failure, unspeci fied acute renal failure type N17.9 ; Varicose veins of both lower extremities with complications I83.893 and Thrombophlebitis of superficial veins of left lower extremity I80.02 [facility] [address] [facility] [id number] [address] [place] [address] 05 Sep, 2019 Acute renal failure, unspeci fied acute renal failure type N17.9 [facility] [address] [facility] [id number] [address] [place] [address] 05 Sep, 2019 [address] [facility] [id number] [address] [place] [address] Sep, [address] 340B [id number], [place] [address] Sep, Acute kidney failure N17.[address] 340B [id number] [place] [address] Sep, Acute kidney failure N17.[address] 340[address] [id number], [place] [address] Aug, Fever, unspecified fever cau se R50.[address] 340[address] [id number], [place] [address] Aug, Cellulitis of left lower ext remity L03.116 [address] [facility] [address] [facility] [id number] [place] [address] Aug, [address] 340B [id number], [place] [address] Aug, [address] 340B [id number], [place] [address] Aug, Thrombophlebitis I80.9 ; Lef t inguinal pain R10.32 and Cellulitis of left lower extremity L03.[address] 340B [id number] [place] [address] Aug, Cellulitis of left lower ext remity L03.[address] 340B [id number] [place] [address] Aug, [address] 340[address] [id number], [place] [address] Aug, [address] 340B [id number], [place] [address] Aug, Thrombophlebitis of superfic ial veins of left lower extremity I80.02 and Cellulitis of left lower extremity L03.116 [facility] [address] 340B [id number] [place] [address] Aug, Cellulitis of left lower ext remity L03.116 and Thrombophlebitis of superficial veins of left lower extremity I80.02 [facility] [place] [address] 340B [id number] [place] [address] Jul, Type 2 diabetes mellitus wit hout complication, without long-term current use of insulin E11.9 ; Essential hypertension I10 ; Sore throat J02.9 ; Skin tags, multiple acquired L91.8 and Irregular menstrual bleeding N92.6 [facility] [address] 340[address] [id number], [place] [address] Jul, [facility] [place] [address] 340[address] [id number], [place] [address] May, Mixed hyperlipidemia E78.2 a nd Encounter for examination for insurance purposes Z02.6 [facility] [address] 340[address] [id number], [place] [address] May, Encounter for examination fo r insurance purposes Z02.6 [facility] [address] 340B [id number] [place] [address] Apr, Nasopharyngitis J00 [facility] [address] 340 [id number] [place] [address] December, [facility] [address] 340 [id number] [place] [address] December, Tonsillitis J03.90 [facility] [place] [facility] [address] 340 [id number] [place] [address] Nov, Pharyngitis due to Streptoco ccus species J02.0 and Migraine without status migrainosus, not intractable, unspecified migraine type G43.909 [facility] [address] 340 [id number] [place] [address] Nov, [facility] [address] 340 [id number] [place] [address] 27 Nov, 2018 Strep pharyngitis J02.0 ; So re throat J02.9 and Morbid obesity E66.01 [facility] [address] 340 [id number] [place] [address] 13 Nov, 2018 TB skin/subcutaneous, other test A18.4 [address] [id number] [address] [place] [address] Jul, Weight loss counseling, enco unter for Z71.3 [address] [address] Jun, [address] [address] 14 Jun, 2018 Weight loss counseling, enco unter for Z71.3 ; Essential hypertension I10 ; Irregular menstrual bleeding N92.6 ; Skin tags, multiple acquired L91.8 ; Abdominal pain R10.9 and BMI 45.0-49.9, adult Z68.42 [address] [address] Jun, Essential hypertension I10 [address] [address] Jun, Dependent edema R60.9 [address] [address] May, Type 2 diabetes mellitus wit hout complication, without long-term current use of insulin E11.9 [address] [id number] [address] [place] [address] May, Type 2 diabetes mellitus wit hout complication, without long-term current use of insulin E11.9 ; Essential hypertension I10 ; Dependent edema R60.9 ; Encounter for weight management Z76.89 ; Skin tag L91.8 and BMI 50.0- 59.9, adult Z68.43 [id number] [place] [address] Feb, [place] of foot L84 ; Hammertoe of right foot M20.41 ; Hammertoe of left foot M20.42 and Type 2 diabetes mellitus with diabetic neuropathy, unspecified whether supervisor intermediates insulin use E11.40 [address] [address] Feb, [address] [address] Jan, [address] [address] Jan, Peripheral edema R60.9 ; Ess ential hypertension I10 and BMI 50.0- 59.9, adult Z68.[address] [address] December, [address] [address] December, [address] [address] December, Upper respiratory infection with cough and congestion J06.9 ; Cough R05 ; Skin tags, multiple acquired L91.8 and BMI 45.0-49.9, adult Z68.[address] [address] Nov, Mixed hyperlipidemia E78.[address] [address] Nov, [address] [address] Nov, Establishing care with tiera guadarrama encounter [...] of both lower extremities with complications I83.893 [address] [address] Oct, Chronic seasonal allergic rh initis, unspecified trigger J30.2 ; Cough due to bronchospasm J98.01 and BMI 45.0-49.9, adult Z68.42 [address] [address] Oct, Type 2 diabetes mellitus wit hout complication, without long-term current use of insulin E11.9 [address] [address] Jun, Type 2 diabetes mellitus wit hout complication, without long-term current use of insulin E11.9 ; Dysthymia F34.1 ; Lumbar disc disease M51.9 ; Chronic seasonal allergic rhinitis, unspecified trigger J30.2 and BMI 40.0-44.9, adult Z68.41 [address] [address] May, [address] [address] Feb, Dysthymia F34.1 ; Lumbar dis c disease M51.9 and Type 2 diabetes mellitus without complication, without long-term current use of insulin E11.9 [address] [address] Feb, Type 2 diabetes mellitus wit hout complication, without long-term current use of insulin E11.9 [address] [id number] [address] [place] [address] December, Seasonal allergic rhinitis, unspecified allergic rhinitis trigger J30.2 [id number] [place] [address] Nov, [address] [address] Nov, Dysthymia F34.1 and Pre-diab etes R73.03 [address] [id number] [address] [place] [address] 15 Oct, 2016 Dysthymia F34.1 [address] [address] 07 Jun, 2016 Varicose veins of both lower extremities with complications I83.893 and Lumbar disc disease M51.9 [address] [address] Mar, [address] [address] Oct, [address] [address] Jun, Insect bite of abdomen, init ial encounter S30.871A and Encounter for immunization Z23 [address] [id number] [address] [place] [address] Apr, [address] [address] Apr, 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 ; Lumbar back pain 724.2 ; Pre-diabetes 790.29 and Left knee pain 719.46 [address] [id number] [address] [place] [address] Mar, [address] [address] Mar, Cough 786.2 and Drug-induced nausea and vomiting 787.01 [address] [address] Mar, [address] [id number] [address] [place] [address] Mar, Elevated glucose 790.29 [address] [address] Mar, [facility] [address] [id number] [address] [place] [address] Mar, Elevated glucose 790.29 [facility] [address] [id number] [address] [place] [address] Mar, [facility] [address] [id number] [address] [place] [address] Mar, Elevated glucose 790.29 and Degenerative arthritis of lumbar spine 721.3 [facility] [address] [id number] [address] [place] [address] Feb, Elevated glucose 790.29 [facility] [address] [id number] [address] [place] [address] Feb, Lumbar back pain 724.2 [address] [id number] [address] [place] [address] Feb, Lumbar back pain 724.2 [facility] [address] [id number] [address] [place] [address] Feb, Routine gynecological examin ation V72.31 ; Pap test, as part of routine gynecological examination V76.2 ; Breast cancer screening V76.10 ; Irregular menses 626.4 ; Dysmenorrhea 625.3 and Routine physicl lab exam V72.62 [facility] [address] [id number] [address] [place] [address] Jan, Eustachian tube dysfunction 381.81 [facility] [address] [id number] [address] [place] [address] Nov, [facility] [address] [id number] [address] [place] [address] Nov, [facility] [address] [id number] [address] [place] [address] Sep, [facility] [address] [facility] [id number] [address] [place] [address] Sep, [facility] [address] [facility] [id number] [address] [place] [address] Aug, [facility] [address] [facility] [id number] [address] [place] [address] Aug, [facility] [address] [facility] [id number] [address] [place] [address] Jun, [facility] [address] [facility] [id number] [address] [place] [address] Jun, [facility] [address] [facility] [id number] [address] [place] [address] Jun, [facility] [address] [facility] [id number] [address] [place] [address] Jun, IMMUNIZATIONS No Known Immunizations SOCIAL HISTORY Never Assessed REASON FOR VISIT PLAN OF CARE VITAL SIGNS MEDICATIONS No [...] Hospitalization History childbirth x2 Hospitalization History [facility] Hospitalization History [facility]
--- OUTSIDE RECORDS SUMMARY | 2020-02-02 09:51 | XMS REPORT ---
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 Active 83361814 Problem Type 2 diabetes mellitus wit hout complication, without long-term current use of insulin E11.9 Active 208282338 Problem Chronic seasonal allergic rhinitis, unspecified trigger J30.2 Active 466501068 Problem Essential hypertension I10 Active 94749509 Problem Hammertoe of left foot M20.42 Active 370036196 Problem 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 Active 604732189 Problem Dysthymia F34.1 Active 82861108 Problem Thrombophlebitis of superficial veins of left lower ex tremity I80.02 Active [id number] Problem Lumbar disc disease M51.9 Active 18362304 Problem Hammertoe of right foot M20.41 Active 623437808 Problem Skin tags, multiple acquired L91.8 A ctive 043646436 Problem Irregular menstrual bleeding N92.6 A ctive 41762778 Problem Migraine without status migr ainosus, not intractable, unspecified migraine type G43.909 Active 63811105 ALLERGIES No Information ENCOUNTERS Encounter Location Date Diagnosis [facility] [address] [facility] [id number] [place] [id number] December, OUTREACH [facility] [address] [address] [id number] [address] Nov, Dental examination Z01.20 ; Oral health maintenance status requiring routine preventive dental care K08.9 ; Caries K02.9 and Gingivitis K05.10 [facility] [address] [facility] [id number] [address] [address] 16 Nov, 2019 [facility] [place] [address] [facility] [id number] [place] [address] 15 Nov, 2019 Essential hypertension I10 and Thrombophlebitis of superficial veins of left lower extremity I80.02 [facility] [place] [address] [facility] [id number] [place], [place] [address] 14 Nov, [address] 340B [id number] [place] [address] 13 Nov, 2019 Essential hypertension I10 a nd Dizziness R42 [facility] [place] [address] [facility] [id number] [place] [address] 13 Nov, 2019 Dizziness R42 [facility] [place] [address] [facility] [id number] [place] [address] 09 Nov, 2019 Essential hypertension I10 [facility] [place] [address] [facility] [id number] [place] [address] 08 Nov, 2019 Essential hypertension I10 and Dizziness R42 [address] 340B [id number] [place] [address] Oct, Post-infectious glomerulonep hritis N05.[address] [id number] [place] [address] Oct, Post-infectious glomerulonep hritis N05.[address] [id number], [place] [address] Sep, Post-infectious glomerulonep hritis N05.[address] [id number] [place] [address] Sep, Post-infectious glomerulonep hritis N05.9 [facility] [address] [facility] [id number] [place] [address] 18 Sep, 2019 Fever, unspecified fever cause R50.[address] [id number] [place] [address] 13 Sep, 2019 Post-infectious glomerulonep hritis N05.9 [facility] [address] [id number] [place] [address] 12 Sep, 2019 Thrombophlebitis of superfic ial veins of left lower extremity I80.[address] [id number], [place] [address] 11 Sep, 2019 Thrombophlebitis of superfic ial veins of left lower extremity I80.02 and 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 340[address] [id number], [place] [address] 11 Sep, 2019 Thrombophlebitis of superfic ial veins of left lower extremity I80.02 and 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 340[address] [id number], [place] [address] 10 Sep, 2019 Thrombophlebitis I80.9 ; Acu te kidney failure N17.9 and Flank pain R10.[address] 340[address] [id number], [place] [address] 06 Sep, [address] 340B [id number], [place] [address] 06 Sep, 2019 Acute renal failure, unspeci fied acute renal failure type N17.[address] [id number] [place] [address] 05 Sep, [address] 340[address] [id number], [place] [address] 05 Sep, 2019 Acute renal failure, unspeci fied acute renal failure type N17.9 ; Varicose veins of both lower extremities with complications I83.893 and Thrombophlebitis of superficial veins of left lower extremity I80.02 [facility] [address] [facility] [id number] [place] [address] 05 Sep, 2019 Acute renal failure, unspeci fied acute renal failure type N17.9 [facility] [address] [facility] [id number] [place] [address] Sep, [facility] [address] [facility] [id number] [place] [address] Sep, [address] [id number] [place] [address] Sep, Acute kidney failure N17.[address] [id number], [place] [address] Sep, Acute kidney failure N17.[address] [id number], [place] [address] Aug, Fever, unspecified fever cau se R50.[address] [id number] [place] [address] Aug, Cellulitis of left lower ext remity L03.116 and Thrombophlebitis I80.9 [facility] [address] [facility] [id number] [place] [address] Aug, [address] 340[address] [id number], [place] [address] Aug, [address] 340[address] [id number], [place] [address] Aug, Thrombophlebitis I80.9 ; Lef t inguinal pain R10.32 and Cellulitis of left lower extremity L03.[address] 340[address] [id number], [place] [address] Aug, Cellulitis of left lower ext remity L03.[address] 340[address] [id number], [place] [address] Aug, [address] 340[address] [id number], [place] [address] Aug, [address] 340[address] [id number], [place] [address] Aug, Thrombophlebitis of superfic ial veins of left lower extremity I80.02 and Cellulitis of left lower extremity L03.116 [facility] [address] 340[address] [id number], [place] [address] Aug, Cellulitis of left lower ext remity L03.116 and Thrombophlebitis of superficial veins of left lower extremity I80.02 [facility] [address] 340[address] [id number], [place] [address] Jul, Type 2 diabetes mellitus wit hout complication, without long-term current use of insulin E11.9 ; Essential hypertension I10 ; Sore throat J02.9 ; Skin tags, multiple acquired L91.8 and Irregular menstrual bleeding N92.6 [facility] [address] 340 [id number], [place] [address] Jul, [address] [id number], [place] [address] May, Mixed hyperlipidemia E78.2 a nd Encounter for examination for insurance purposes Z02.6 [facility] [address] 340 [id number], [place] [address] May, Encounter for examination fo r insurance purposes Z02.6 [facility] [address] 340[address] [id number], [place] [address] Apr, Nasopharyngitis J00 [facility] [address] [id number], [place] [address] December, [facility] [address] 340 [id number], [place] [address] December, Tonsillitis J03.90 [facility] [address] 340 [id number], [place] [address] Nov, Pharyngitis due to Streptoco ccus species J02.0 and Migraine without status migrainosus, not intractable, unspecified migraine type G43.909 [facility] [address] 340 [id number] [place] [address] Nov, [facility] [address] [id number] [place] [address] Nov, Strep pharyngitis J02.0 ; So re throat J02.9 and Morbid obesity E66.01 [facility] [address] 340 [id number] [place] [address] Nov, TB skin/subcutaneous, other test A18.4 [place] [address] [address] 11 Jul, 2018 Weight loss counseling, enco unter for Z71.3 [place] [address] [address] Jun, [place] [address] [address] 14 Jun, 2018 Weight loss counseling, enco unter for Z71.3 ; Essential hypertension I10 ; Irregular menstrual bleeding N92.6 ; Skin tags, multiple acquired L91.8 ; Abdominal pain R10.9 and BMI 45.0-49.9, adult Z68.42 [place] [address] [address] Jun, Essential hypertension I10 [place] [address] [address] Jun, Dependent edema R60.9 [place] [address] [address] May, Type 2 diabetes mellitus wit hout complication, without long-term current use of insulin E11.9 [place] [address] [address] May, Type 2 diabetes mellitus wit hout complication, without long-term current use of insulin E11.9 ; Essential hypertension I10 ; Dependent edema R60.9 ; Encounter for weight management Z76.89 ; Skin tag L91.8 and BMI 50.0- 59.9, adult Z68.43 [place] [address] [address] Feb, [place] of foot L84 ; Hammertoe of right foot M20.41 ; Hammertoe of left foot M20.42 and Type 2 diabetes mellitus with diabetic neuropathy, unspecified whether terminal clerk insulin use E11.[address] [address] Feb, [place] [address] [address] Jan, [address] [address] Jan, Peripheral edema R60.9 ; Ess ential hypertension I10 and BMI 50.0- 59.9, adult Z68.[address] [address] December, [place] [address] [address] December, [address] [address] December, Upper respiratory infection with cough and congestion J06.9 ; Cough R05 ; Skin tags, multiple acquired L91.8 and BMI 45.0-49.9, adult Z68.[address] [address] Nov, Mixed hyperlipidemia E78.[address] [address] Nov, [address] [address] Nov, Establishing care with tiera guadarrama, encounter [...] of both lower extremities with complications I83.893 [place] [address] [place] [id number] [address] [place] [address] Oct, Chronic seasonal allergic rh initis, unspecified trigger J30.2 ; Cough due to bronchospasm J98.01 and BMI 45.0-49.9, adult Z68.42 [place] [address] [address] Oct, Type 2 diabetes mellitus wit hout complication, without long-term current use of insulin E11.9 [place] [address] [address] Jun, Type 2 diabetes mellitus wit hout complication, without long-term current use of insulin E11.9 ; Dysthymia F34.1 ; Lumbar disc disease M51.9 ; Chronic seasonal allergic rhinitis, unspecified trigger J30.2 and BMI 40.0-44.9, adult Z68.41 [place] [address] [address] May, [place] [address] [place] [id number] [place] [address] Feb, Dysthymia F34.1 ; Lumbar dis c disease M51.9 and Type 2 diabetes mellitus without complication, without long-term current use of insulin E11.9 [place] [address] [place] [id number] [address] [place] [address] Feb, Type 2 diabetes mellitus wit hout complication, without long-term current use of insulin E11.9 [place] [address] [place] [id number] [address] [place] [address] December, Seasonal allergic rhinitis, unspecified allergic rhinitis trigger J30.2 [place] [address] [address] Nov, [facility] [id number] [place] [address] Nov, Dysthymia F34.1 and Pre-diab etes R73.03 [facility] [address] [place] [id number] [address] [place] [address] 15 Oct, 2016 Dysthymia F34.1 [place] [address] [address] 07 Jun, 2016 Varicose veins of both lower extremities with complications I83.893 and Lumbar disc disease M51.9 [place] [address] [address] Mar, [place] [address] [address] Oct, [place] [address] [address] Jun, Insect bite of abdomen, init ial encounter S30.871A and Encounter for immunization Z23 [address] [address] Apr, [place] [address] [address] Apr, 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 ; Lumbar back pain 724.2 ; Pre-diabetes 790.29 and Left knee pain 719.46 [place] [address] [address] Mar, [place] [address] [place] [id number] [place] [address] Mar, Cough 786.2 and Drug-induced nausea and vomiting 787.01 [place] [address] [place] [id number] [address] [place] [address] Mar, [facility] [address] [address] Mar, Elevated glucose 790.29 [facility] [address] [id number] [address] [place] [address] Mar, [facility] [address] [id number] [address] [place] [address] Mar, Elevated glucose 790.29 [facility] [address] [id number] [address] [place] [address] Mar, [facility] [address] [id number] [address] [place] [address] Mar, Elevated glucose 790.29 and Degenerative arthritis of lumbar spine 721.3 [place] [address] [id number] [address] [place] [address] Feb, Elevated glucose 790.29 [place] [address] [id number] [address] [place] [address] Feb, Lumbar back pain 724.2 [place] [address] [id number] [address] [place] [address] Feb, Lumbar back pain 724.2 [place] [address] [facility] [id number] [address] [place] [address] Feb, Routine gynecological examin ation V72.31 ; Pap test, as part of routine gynecological examination V76.2 ; Breast cancer screening V76.10 ; Irregular menses 626.4 ; Dysmenorrhea 625.3 and Routine physicl lab exam V72.62 [place] [address] [id number] [address] [place] [address] Jan, Eustachian tube dysfunction 381.81 [place] [address] [id number] [address] [place] [address] Nov, [place] [address] [id number] [address] [place] [address] Nov, [place] [address] [facility] [id number] [address] [place] [address] Sep, [facility] [address] [id number] [address] [place] [address] Sep, [facility] [address] [id number] [address] [place] [address] Aug, [facility] [address] [id number] [address] [place] [address] Aug, [facility] [address] [id number] [address] [place] [address] Jun, [facility] [address] [id number] [address] [place] [address] Jun, [facility] [address] [facility] [id number] [address] [place] [address] Jun, [facility] [address] [facility] [id number] [address] [place] [address] Jun, IMMUNIZATIONS No Known Immunizations SOCIAL HISTORY Never Assessed REASON FOR VISIT PLAN OF CARE VITAL SIGNS Height 67 in 2014-06-23 Weight 282.4 lbs 2014-06-23 Temperature 98 degrees Fahrenheit 2014-06-23 Heart Rate 84 bpm 2014-06-23 Respiratory Rate 20 2014-06-23 Blood pressure systolic 142 mmHg 2014-06-23 Blood pressure diastolic 86 mmHg 2014-06-23 MEDICATIONS Unknown Medications RESULTS No Results PROCEDURES Procedure Date Ordered Result Body Site COMPLETE CBC W/AUTO DIFF WBC Jun 23, 2014 COMPREHEN METABOLIC PANEL Jun 23, 2014 VENIPUNCT, ROUTINE* Jun 23, 2014 INSTRUCTIONS MEDICATIONS ADMINISTERED No Known Medications [...] Hospitalization History childbirth x2 Hospitalization History [facility] Hospitalization History [facility]
--- OUTSIDE RECORDS SUMMARY | 2020-02-02 09:52 | XMS REPORT ---
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 Name Role Phone MAGALI ESQUEDA Unavailable PROBLEMS Type Condition ICD9-CM Code [id number] Code Onset Dates Condition S tatus SNOMED Code Problem Essential hypertension I10 Active 02474098 Problem Establishing care with new doctor, encounter for Z 76.89 Active 023687562 Problem BMI 45.0-49.9, adult Z68.42 Active 342917114 Problem Irregular menstrual bleeding N92.6 A ctive 00476720 Problem Skin tags, multiple acquired L91.8 A ctive 611017430 Problem Hammertoe of right foot M20.41 Active 230195628 Problem Hammertoe of left foot M20.42 Active 827166362 Problem Cough R05 Active 08162125 Problem Upper respiratory infection with cough and congestion J06.9 Active 52399229 Problem Type 2 diabetes mellitus wit hout complication, without long-term current use of insulin E11.9 Active 533988400 Problem 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 Active 63059338 Problem Mixed hyperlipidemia E78.2 Active 356103333 Problem Seasonal allergic rhinitis, unspecified allergic rhinitis trigger J30.2 Active 893302838 Problem Chronic seasonal allergic rhinitis, unspecified trigger J30.2 Active 921951353 Problem Lumbar disc disease M51.9 Active 66252186 Problem Toe pain, left M79.675 Active 24256 1530468258 Problem Dysthymia F34.1 Active 28340136 Problem Morbid obesity due to excess calories E66.01 Active 538173866 ALLERGIES No Information ENCOUNTERS Encounter Location Date Diagnosis [facility] [address] [facility] [id number] [address] [place] [address] Jul, [facility] [address] [facility] [id number] [address] [place] [address] Jun, [place] [address] [address] Jun, Weight loss counseling, yoanao sully for Z71.3 ; Essential hypertension I10 ; Irregular menstrual bleeding N92.6 ; Skin tags, multiple acquired L91.8 ; Abdominal pain R10.9 and BMI 45.0-49.9, adult Z68.[address] [address] Jun, Essential hypertension I10 [address] [address] Jun, Dependent edema R60.9 [place] [id number] [place] [address] May, Type 2 diabetes mellitus wit hout complication, without long-term current use of insulin E11.[address] [address] May, Type 2 diabetes mellitus wit hout complication, without long-term current use of insulin E11.9 ; Essential hypertension I10 ; Dependent edema R60.9 ; Encounter for weight management Z76.89 ; Skin tag L91.8 and BMI 50.0- 59.9, adult Z68.43 [place] [id number] [address] [place] [address] Feb, [place] of foot L84 ; Hammertoe of right foot M20.41 ; Hammertoe of left foot M20.42 and Type 2 diabetes mellitus with diabetic neuropathy, unspecified whether assisted insulin use E11.40 [place] [address] [address] Feb, [place] [id number] [place] [address] Jan, [place] [address] [place] [id number] [address] [place] [address] Jan, Peripheral edema R60.9 ; Ess ential hypertension I10 and BMI 50.0- 59.9, adult Z68.43 [place] [address] [address] December, [place] [address] [address] December, [place] [address] [address] December, Upper respiratory infection with cough and congestion J06.9 ; Cough R05 ; Skin tags, multiple acquired L91.8 and BMI 45.0-49.9, adult Z68.42 [place] [address] [address] Nov, Mixed hyperlipidemia E78.2 [place] [address] [address] Nov, [place] [address] [address] Nov, Establishing care with tiera guadarrama, encounter [...] of both lower extremities with complications I83.893 [place] [address] [address] Oct, Chronic seasonal allergic rh initis, unspecified trigger J30.2 ; Cough due to bronchospasm J98.01 and BMI 45.0-49.9, adult Z68.42 [place] [address] [address] Oct, Type 2 diabetes mellitus wit hout complication, without long-term current use of insulin E11.9 [place] [address] [place] [address] Jun, Type 2 diabetes mellitus wit hout complication, without long-term current use of insulin E11.9 ; Dysthymia F34.1 ; Lumbar disc disease M51.9 ; Chronic seasonal allergic rhinitis, unspecified trigger J30.2 and BMI 40.0-44.9, adult Z68.41 [place] [address] [address] May, [place] [address] [address] Feb, Dysthymia F34.1 ; Lumbar dis c disease M51.9 and Type 2 diabetes mellitus without complication, without long-term current use of insulin E11.9 [place] [address] [place] [id number] [place] [address] Feb, Type 2 diabetes mellitus wit hout complication, without long-term current use of insulin E11.9 [place] [address] [address] December, Seasonal allergic rhinitis, unspecified allergic rhinitis trigger J30.2 [place] [address] [address] Nov, [place] [address] [address] Nov, Dysthymia F34.1 and Pre-diab etes R73.03 [place] [address] [place] [id number] [place] [address] Oct, Dysthymia F34.1 [place] [address] [address] Jun, Varicose veins of both lower extremities with complications I83.893 and Lumbar disc disease M51.9 [place] [address] [place] [id number] [address] [place] [address] Mar, [place] [address] [place] [address] Oct, [facility] [address] [place] [id number] [address] [place] [address] Jun, Insect bite of abdomen, init ial encounter S30.871A and Encounter for immunization Z23 [facility] [address] [place] [id number] [address] [place] [address] Apr, [facility] [address] [place] [id number] [place] [address] Apr, 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 ; Lumbar back pain 724.2 ; Pre-diabetes 790.29 and Left knee pain 719.46 [place] [address] [address] Mar, [facility] [address] [place] [id number] [place] [address] Mar, Cough 786.2 and Drug-induced nausea and vomiting 787.01 [facility] [address] [place] [id number] [address] [place] [address] Mar, [facility] [address] [address] Mar, Elevated glucose 790.29 [facility] [address] [place] [id number] [address] [place] [address] Mar, [facility] [address] [place] [id number] [address] [place] [address] Mar, Elevated glucose 790.29 [facility] [address] [facility] [id number] [address] [place] [address] Mar, [facility] [address] [place] [id number] [address] [place] [address] Mar, Elevated glucose 790.29 and Degenerative arthritis of lumbar spine 721.3 [facility] [address] [place] [id number] [address] [place] [address] Feb, Elevated glucose 790.29 [facility] [address] [id number] [address] [place] [address] Feb, Lumbar back pain 724.2 [facility] [address] [id number] [address] [place] [address] 16 Feb, 2015 Lumbar back pain 724.2 [facility] [address] [id number] [address] [place] [address] 14 Feb, 2015 Routine gynecological examin ation V72.31 ; Pap test, as part of routine gynecological examination V76.2 ; Breast cancer screening V76.10 ; Irregular menses 626.4 ; Dysmenorrhea 625.3 and Routine physicl lab exam V72.62 [facility] [address] [id number] [address] [place] [address] Jan, Eustachian tube dysfunction 381.81 [facility] [address] [id number] [address] [place] [address] Nov, [facility] [address] [id number] [address] [place] [address] Nov, [facility] [address] [id number] [address] [place] [address] Sep, [facility] [address] [id number] [address] [place] [address] Sep, [facility] [address] [id number] [address] [place] [address] Aug, [facility] [address] [id number] [address] [place] [address] Aug, [facility] [address] [id number] [address] [place] [address] Jun, [facility] [address] [id number] [address] [place] [address] Jun, [facility] [address] [id number] [address] [place] [address] Jun, [facility] [address] [facility] [id number] [address] [place] [address] Jun, IMMUNIZATIONS No Known Immunizations SOCIAL HISTORY Never Assessed REASON FOR VISIT Controlled Med Refill PLAN OF CARE VITAL SIGNS MEDICATIONS Unknown Medications RESULTS No Results PROCEDURES No Known procedures INSTRUCTIONS MEDICATIONS ADMINISTERED No Known Medications MEDICAL (GENERAL) HISTORY Type Description Date Medical History Elevated Insulin Level Medical History Severe Degenerative Arthritis LS Medical History Chronic Back Pain Medical History Prediabetic 6.1 AIC Surgical History No know Surgical history
--- OUTSIDE RECORDS SUMMARY | 2020-02-02 09:52 | XMS REPORT ---
Author Author Aparna CABRERA Organization [facility] Address [address] [place] [address] Care Team Providers Care Client Service Supervisor Name Role Phone JOEY CABRERA Unavailable PROBLEMS Type Condition ICD9-CM Code YVP39-[place] Code Onset Dates Condition S tatus SNOMED Code Problem Toe pain, left M79.675 Active 62034 0668613061 Problem BMI 45.0-49.9, adult Z68.42 Active 532594416 Problem Morbid obesity due to excess calories E66.01 Active 303832274 Problem Cough R05 Active 11049568 Problem Skin tags, multiple acquired L91.8 A ctive 249790974 Problem Hammertoe of left foot M20.42 Active 033942775 Problem Establishing care with new doctor, encounter for Z 76.89 Active 639034408 Problem Upper respiratory infection with cough and congestion J06.9 Active 61521122 Problem Hammertoe of right foot M20.41 Active 760114717 Problem Mixed hyperlipidemia E78.2 Active 317230594 Problem Type 2 diabetes mellitus wit hout complication, without long-term current use of insulin E11.9 Active 407319199 Problem Dysthymia F34.1 Active 60490726 Problem Seasonal allergic rhinitis, unspecified allergic rhinitis trigger J30.2 Active 569767196 Problem 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 Active 60367528 Problem Chronic seasonal allergic rhinitis, unspecified trigger J30.2 Active 049044245 Problem Lumbar disc disease M51.9 Active 20925449 Problem Essential hypertension I10 Active 63350447 ALLERGIES No Information ENCOUNTERS Encounter Location Date Diagnosis [facility] [address] [facility] [id number] [address] [place] [address] Feb, [place] of foot L84 ; Hammertoe of right foot M20.41 ; Hammertoe of left foot M20.42 and Type 2 diabetes mellitus with diabetic neuropathy, unspecified whether alf insulin use E11.40 [place] [address] [address] Feb, [place] [address] [address] Jan, [place] [address] [place] [id number] [place] [address] Jan, Peripheral edema R60.9 ; Ess ential hypertension I10 and BMI 50.0- 59.9, adult Z68.43 [place] [address] [address] December, [place] [address] [address] December, [place] [address] [address] December, Upper respiratory infection with cough and congestion J06.9 ; Cough R05 ; Skin tags, multiple acquired L91.8 and BMI 45.0-49.9, adult Z68.42 [place] [address] [address] Nov, Mixed hyperlipidemia E78.2 [place] [address] [address] Nov, [place] [address] [address] Nov, Establishing care with tiera guadarrama, encounter [...] of both lower extremities with complications I83.893 [place] [address] [address] Oct, Chronic seasonal allergic rh initis, unspecified trigger J30.2 ; Cough due to bronchospasm J98.01 and BMI 45.0-49.9, adult Z68.42 [place] [address] [address] Oct, Type 2 diabetes mellitus wit hout complication, without long-term current use of insulin E11.9 [place] [address] [address] Jun, Type 2 diabetes mellitus wit hout complication, without long-term current use of insulin E11.9 ; Dysthymia F34.1 ; Lumbar disc disease M51.9 ; Chronic seasonal allergic rhinitis, unspecified trigger J30.2 and BMI 40.0-44.9, adult Z68.41 [place] [address] [address] May, [place] [address] [address] Feb, Dysthymia F34.1 ; Lumbar dis c disease M51.9 and Type 2 diabetes mellitus without complication, without long-term current use of insulin E11.9 [place] [address] [address] Feb, Type 2 diabetes mellitus wit hout complication, without long-term current use of insulin E11.9 [place] [address] [address] December, Seasonal allergic rhinitis, unspecified allergic rhinitis trigger J30.2 [place] [address] [place] [id number] [address] [place] [address] Nov, [address] [address] Nov, Dysthymia F34.1 and Pre-diab etes R73.03 [place] [address] [place] [id number] [address] [place] [address] Oct, Dysthymia F34.1 [facility] [address] [place] [address] 07 Jun, 2016 Varicose veins of both lower extremities with complications I83.893 and Lumbar disc disease M51.9 [facility] [address] [place] [id number] [address] [place] [address] Mar, [facility] [address] [address] Oct, [facility] [address] [address] Jun, Insect bite of abdomen, init ial encounter S30.871A and Encounter for immunization Z23 [place] [address] [address] Apr, [place] [address] [address] Apr, 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 ; Lumbar back pain 724.2 ; Pre-diabetes 790.29 and Left knee pain 719.46 [place] [address] [address] Mar, [facility] [address] [place] [id number] [address] [place] [address] Mar, Cough 786.2 and Drug-induced nausea and vomiting 787.01 [facility] [address] [place] [address] Mar, [facility] [address] [place] [id number] [address] [place] [address] Mar, Elevated glucose 790.29 [facility] [address] [place] [id number] [address] [place] [address] Mar, [facility] [address] [place] [id number] [address] [place] [address] Mar, Elevated glucose 790.29 [facility] [address] [id number] [address] [place] [address] Mar, [facility] [address] [id number] [address] [place] [address] Mar, Elevated glucose 790.29 and Degenerative arthritis of lumbar spine 721.3 [facility] [address] [id number] [address] [place] [address] Feb, Elevated glucose 790.29 [facility] [address] [id number] [address] [place] [address] Feb, Lumbar back pain 724.2 [facility] [address] [id number] [address] [place] [address] Feb, Lumbar back pain 724.2 [facility] [address] [id number] [address] [place] [address] Feb, Routine gynecological examin ation V72.31 ; Pap test, as part of routine gynecological examination V76.2 ; Breast cancer screening V76.10 ; Irregular menses 626.4 ; Dysmenorrhea 625.3 and Routine physicl lab exam V72.62 [facility] [address] [id number] [address] [place] [address] Jan, Eustachian tube dysfunction 381.81 [facility] [address] [id number] [address] [place] [address] Nov, [facility] [address] [id number] [address] [place] [address] Nov, [facility] [address] [id number] [address] [place] [address] Sep, [facility] [address] [id number] [address] [place] [address] Sep, [facility] [address] [id number] [address] [place] [address] Aug, [facility] [address] [id number] [address] [place] [address] Aug, [facility] [address] [facility] [id number] [address] [place] [address] Jun, [facility] [address] [facility] [id number] [address] [place] [address] Jun, [facility] [address] [facility] [id number] [address] [place] [address] Jun, [facility] [address] [facility] [id number] [address] [place] [address] Jun, IMMUNIZATIONS No Known Immunizations SOCIAL HISTORY Never Assessed REASON FOR VISIT left and right toe pain-no grzegorz - [place] PLAN OF CARE VITAL SIGNS Height 67 in 2018-03-01 Blood pressure systolic 126 mmHg 2018-03-01 Blood pressure diastolic 88 mmHg 2018-03-01 MEDICATIONS Medication Instructions Dosage Frequency Start Date End Date Duration S tatus Glucometer 1 glucometer Test blood sugar (glucocard Unknown Zoloft 25 MG Orally Once a day 1 tablet 24h 30 Unknown Actos 30 MG Orally Once a day TAKE ONE TABLET BY MOUTH ONCE DAILY 24h 30 Unknown Lisinopril 10 mg Orally Once a day 1 tablet 24h 18 Nov, 2017 30 day(s) Unknown Test strips Test Strips Test blood sugar (glucocard) Unknown Lipitor 40 mg Orally Once a day 1 tablet 24h 30 Nov, 2017 30 day(s) Unknown Hydrochlorothiazide 12.5 MG Orally Once a day 1 tablet in the morni ng 24h Jan, 90 day(s) Unknown RESULTS No Results PROCEDURES No Known procedures INSTRUCTIONS MEDICATIONS ADMINISTERED No Known Medications MEDICAL (GENERAL) HISTORY Type Description Date Medical History Elevated Insulin Level Medical History Severe Degenerative Arthritis LS Medical History Chronic Back Pain Medical History Prediabetic 6.1 AIC
--- OUTSIDE RECORDS SUMMARY | 2020-02-02 09:52 | XMS REPORT ---
Author Author Aparna ESQUEDA [facility] Address [address] [place] [address] Care Team Providers Care Skip Miner Blasting Name Role Phone MAGALI ESQUEDA Unavailable PROBLEMS Type Condition ICD9-CM Code QIK70-PF Code Onset Dates Condition S tatus SNOMED Code Problem Toe pain, left M79.675 Active 85733 [id number] Problem BMI 45.0-49.9, adult Z68.42 Active 413564293 Problem Morbid obesity due to excess calories E66.01 Active 917738363 Problem Cough R05 Active 07121637 Problem Skin tags, multiple acquired L91.8 A ctive 831956074 Problem Hammertoe of left foot M20.42 Active 486967830 Problem Establishing care with new doctor, encounter for Z 76.89 Active 857754591 Problem Upper respiratory infection with cough and congestion J06.9 Active 94183752 Problem Hammertoe of right foot M20.41 Active 612084457 Problem Mixed hyperlipidemia E78.2 Active 232357498 Problem Type 2 diabetes mellitus wit hout complication, without long-term current use of insulin E11.9 Active 099757025 Problem Dysthymia F34.1 Active 06800902 Problem Seasonal allergic rhinitis, unspecified allergic rhinitis trigger J30.2 Active 791557273 Problem 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 Active 57875952 Problem Chronic seasonal allergic rhinitis, unspecified trigger J30.2 Active 323503929 Problem Lumbar disc disease M51.9 Active 05608240 Problem Essential hypertension I10 Active 09306548 ALLERGIES No Information ENCOUNTERS Encounter Location Date Diagnosis [facility] [address] [facility] [id number] [address] [place] [address] Feb, 2018 [place] of foot L84 ; Hammertoe of right foot M20.41 ; Hammertoe of left foot M20.42 and Type 2 diabetes mellitus with diabetic neuropathy, 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.40 [place] [address] [address] Feb, [place] [address] [address] Jan, [place] [address] [place] [id number] [place] [address] Jan, Peripheral edema R60.9 ; Ess ential hypertension I10 and BMI 50.0- 59.9, adult Z68.43 [place] [address] [address] December, [place] [address] [address] December, [place] [address] [address] December, Upper respiratory infection with cough and congestion J06.9 ; Cough R05 ; Skin tags, multiple acquired L91.8 and BMI 45.0-49.9, adult Z68.42 [place] [address] [address] Nov, Mixed hyperlipidemia E78.2 [place] [address] [place] [id number] [place] [address] Nov, [place] [address] [address] Nov, Establishing care with tiera guadarrama, encounter [...] of both lower extremities with complications I83.893 [place] [address] [address] Oct, Chronic seasonal allergic rh initis, unspecified trigger J30.2 ; Cough due to bronchospasm J98.01 and BMI 45.0-49.9, adult Z68.42 [place] [address] [address] Oct, Type 2 diabetes mellitus wit hout complication, without long-term current use of insulin E11.9 [place] [address] [address] Jun, Type 2 diabetes mellitus wit hout complication, without long-term current use of insulin E11.9 ; Dysthymia F34.1 ; Lumbar disc disease M51.9 ; Chronic seasonal allergic rhinitis, unspecified trigger J30.2 and BMI 40.0-44.9, adult Z68.41 [place] [address] [address] May, [place] [address] [address] Feb, Dysthymia F34.1 ; Lumbar dis c disease M51.9 and Type 2 diabetes mellitus without complication, without long-term current use of insulin E11.9 [place] [address] [address] Feb, Type 2 diabetes mellitus wit hout complication, without long-term current use of insulin E11.9 [place] [address] [address] December, Seasonal allergic rhinitis, unspecified allergic rhinitis trigger J30.2 [place] [address] [address] Nov, [address] [address] Nov, Dysthymia F34.1 and Pre-diab etes R73.03 [place] [address] [place] [id number] [place] [address] Oct, Dysthymia F34.1 [facility] [address] [place] [id number] [place] [address] 07 Jun, 2016 Varicose veins of both lower extremities with complications I83.893 and Lumbar disc disease M51.9 [facility] [address] [place] [address] Mar, [facility] [address] [address] Oct, [facility] [address] [address] Jun, Insect bite of abdomen, init ial encounter S30.871A and Encounter for immunization Z23 [place] [address] [address] Apr, [place] [address] [address] Apr, 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 ; Lumbar back pain 724.2 ; Pre-diabetes 790.29 and Left knee pain 719.46 [place] [address] [address] Mar, [facility] [address] [address] Mar, Cough 786.2 and Drug-induced nausea and vomiting 787.01 [facility] [address] [place] [address] Mar, [facility] [address] [place] [address] Mar, Elevated glucose 790.29 [facility] [address] [place] [id number] [place] [address] Mar, [facility] [address] [place] [id number] [place] [address] Mar, Elevated glucose 790.29 [facility] [address] [id number] [address] [place] [address] Mar, [facility] [address] [id number] [address] [place] [address] Mar, Elevated glucose 790.29 and Degenerative arthritis of lumbar spine 721.3 [facility] [address] [id number] [address] [place] [address] Feb, Elevated glucose 790.29 [facility] [address] [id number] [address] [place] [address] Feb, Lumbar back pain 724.2 [facility] [address] [id number] [address] [place] [address] Feb, Lumbar back pain 724.2 [facility] [address] [id number] [address] [place] [address] Feb, Routine gynecological examin ation V72.31 ; Pap test, as part of routine gynecological examination V76.2 ; Breast cancer screening V76.10 ; Irregular menses 626.4 ; Dysmenorrhea 625.3 and Routine physicl lab exam V72.62 [facility] [address] [id number] [address] [place] [address] Jan, Eustachian tube dysfunction 381.81 [facility] [address] [id number] [address] [place] [address] Nov, [facility] [address] [id number] [address] [place] [address] Nov, [facility] [address] [id number] [address] [place] [address] Sep, [facility] [address] [id number] [address] [place] [address] Sep, [facility] [address] [id number] [address] [place] [address] Aug, [facility] [address] [id number] [address] [place] [address] Aug, [facility] [address] [facility] [id number] [address] [place] [address] Jun, [facility] [address] [facility] [id number] [address] [place] [address] Jun, [facility] [address] [facility] [id number] [address] [place] [address] Jun, [facility] [address] [facility] [id number] [address] [place] [address] Jun, IMMUNIZATIONS No Known Immunizations SOCIAL HISTORY Never Assessed REASON FOR VISIT Returned call PLAN OF CARE VITAL SIGNS MEDICATIONS Unknown Medications RESULTS No Results PROCEDURES No Known procedures INSTRUCTIONS MEDICATIONS ADMINISTERED No Known Medications MEDICAL (GENERAL) HISTORY Type Description Date Medical History Elevated Insulin Level Medical History Severe Degenerative Arthritis LS Medical History Chronic Back Pain Medical History Prediabetic 6.1 AIC
--- OUTSIDE RECORDS SUMMARY | 2020-02-02 09:52 | XMS REPORT ---
Author Author Aparna ESQUEDA [facility] Address [address] [place] [address] Care Team Providers Care Terminal Supervisor Name Role Phone MAGALI ESQUEDA Unavailable PROBLEMS Type Condition ICD9-CM Code PPY68-WK Code Onset Dates Condition S tatus SNOMED Code Problem Toe pain, left M79.675 Active 08768 4165219469 Problem BMI 45.0-49.9, adult Z68.42 Active 995319116 Problem Morbid obesity due to excess calories E66.01 Active 947490588 Problem Cough R05 Active 72999198 Problem Skin tags, multiple acquired L91.8 A ctive 280884236 Problem Hammertoe of left foot M20.42 Active 908015218 Problem Establishing care with new doctor, encounter for Z 76.89 Active 524159755 Problem Upper respiratory infection with cough and congestion J06.9 Active 28203646 Problem [place] of right foot M20.41 Active 740562609 Problem Mixed hyperlipidemia E78.2 Active 466768541 Problem Type 2 diabetes mellitus wit hout complication, without long-term current use of insulin E11.9 Active 269105086 Problem Dysthymia F34.1 Active 01724781 Problem Seasonal allergic rhinitis, unspecified allergic rhinitis trigger J30.2 Active 681042979 Problem 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 Active 93787213 Problem Chronic seasonal allergic rhinitis, unspecified trigger J30.2 Active 980386081 Problem Lumbar disc disease M51.9 Active 74071240 Problem Essential hypertension I10 Active 48158609 ALLERGIES No Information ENCOUNTERS Encounter Location Date Diagnosis [facility] [address] [facility] [id number] [address] [place] [address] Jun, [facility] [address] [facility] [id number] [address] [place] [address] Jun, [facility] [address] [place] [id number] [address] [place] [address] Jun, Dependent edema R60.9 [place] [address] [address] May, Type 2 diabetes mellitus wit hout complication, without long-term current use of insulin E11.9 [place] [address] [address] May, Type 2 diabetes mellitus wit hout complication, without long-term current use of insulin E11.9 ; Essential hypertension I10 ; Dependent edema R60.9 ; Encounter for weight management Z76.89 ; Skin tag L91.8 and BMI 50.0- 59.9, adult Z68.43 [place] [address] [address] Feb, [place] of foot L84 ; Hammertoe of right foot M20.41 ; [place] of left foot M20.42 and Type 2 diabetes mellitus with diabetic neuropathy, 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 [place] [address] [address] Feb, [place] [address] [address] Jan, [place] [address] [address] Jan, Peripheral edema R60.9 ; Ess ential hypertension I10 and BMI 50.0- 59.9, adult Z68.43 [place] [address] [place] [id number] [address] [place] [address] December, [place] [address] [address] December, [place] [address] [address] December, Upper respiratory infection with cough and congestion J06.9 ; Cough R05 ; Skin tags, multiple acquired L91.8 and BMI 45.0-49.9, adult Z68.42 [place] [address] [address] Nov, Mixed hyperlipidemia E78.2 [place] [address] [address] Nov, [place] [address] [address] Nov, Establishing care with tiera guadarrama, encounter [...] of both lower extremities with complications I83.893 [place] [address] [address] Oct, Chronic seasonal allergic rh initis, unspecified trigger J30.2 ; Cough due to bronchospasm J98.01 and BMI 45.0-49.9, adult Z68.42 [place] [address] [address] Oct, Type 2 diabetes mellitus wit hout complication, without long-term current use of insulin E11.9 [place] [address] [address] Jun, Type 2 diabetes mellitus wit hout complication, without long-term current use of insulin E11.9 ; Dysthymia F34.1 ; Lumbar disc disease M51.9 ; Chronic seasonal allergic rhinitis, unspecified trigger J30.2 and BMI 40.0-44.9, adult Z68.41 [place] [address] [address] May, [place] [address] [address] Feb, Dysthymia F34.1 ; Lumbar dis c disease M51.9 and Type 2 diabetes mellitus without complication, without long-term current use of insulin E11.9 [place] [address] [address] Feb, Type 2 diabetes mellitus wit hout complication, without long-term current use of insulin E11.9 [place] [address] [address] December, Seasonal allergic rhinitis, unspecified allergic rhinitis trigger J30.[address] [address] Nov, [address] [address] Nov, Dysthymia F34.1 and Pre-diab etes R73.[address] [address] Oct, Dysthymia F34.[address] [address] Jun, Varicose veins of both lower extremities with complications I83.893 and Lumbar disc disease M51.9 [place] [address] [address] Mar, [place] [address] [address] Oct, [address] [address] Jun, Insect bite of abdomen, init ial encounter S30.871A and Encounter for immunization Z23 [place] [address] [address] [place] [id number] [place] [address] Apr, [place] [id number] [place] [address] Apr, 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 ; Lumbar back pain 724.2 ; Pre-diabetes 790.29 and Left knee pain 719.46 [facility] [address] [id number] [address] [place] [address] Mar, [facility] [address] [id number] [address] [place] [address] Mar, Cough 786.2 and Drug-induced nausea and vomiting 787.01 [facility] [address] [id number] [address] [place] [address] Mar, [facility] [address] [id number] [address] [place] [address] Mar, Elevated glucose 790.29 [facility] [address] [id number] [address] [place] [address] Mar, [facility] [address] [id number] [address] [place] [address] Mar, Elevated glucose 790.29 [facility] [address] [id number] [address] [place] [address] Mar, [facility] [address] [id number] [address] [place] [address] Mar, Elevated glucose 790.29 and Degenerative arthritis of lumbar spine 721.3 [facility] [address] [id number] [address] [place] [address] Feb, Elevated glucose 790.29 [facility] [address] [id number] [address] [place] [address] Feb, Lumbar back pain 724.2 [facility] [address] [id number] [address] [place] [address] Feb, Lumbar back pain 724.2 [facility] [address] [id number] [address] [place] [address] Feb, Routine gynecological examin ation V72.31 ; Pap test, as part of routine gynecological examination V76.2 ; Breast cancer screening V76.10 ; Irregular menses 626.4 ; Dysmenorrhea 625.3 and Routine physicl lab exam V72.62 [facility] [address] [id number] [address] [place] [address] Jan, Eustachian tube dysfunction 381.81 [facility] [address] [id number] [address] [place] [phone] Nov, [facility] [address] [id number] [address] [place] [address] Nov, [facility] [address] [id number] [address] [place] [address] Sep, [facility] [address] [id number] [address] [place] [address] Sep, [facility] [address] [id number] [address] [place] [address] Aug, [facility] [address] [id number] [address] [place] [address] Aug, [facility] [address] [id number] [address] [place] [address] Jun, [facility] [address] [id number] [address] [place] [address] Jun, [facility] [address] [id number] [address] [place] [address] Jun, [facility] [address] [id number] [address] [place] [phone] Jun, IMMUNIZATIONS No Known Immunizations SOCIAL HISTORY Never Assessed REASON FOR VISIT Medication question PLAN OF CARE VITAL SIGNS MEDICATIONS Medication Instructions Dosage Frequency Start Date End Date Duration S oliverus Hydrochlorothiazide 25 MG Orally Once a day 1 tablet in the morning 24h Jun, 14 days Active RESULTS No Results PROCEDURES No Known procedures INSTRUCTIONS MEDICATIONS ADMINISTERED No Known Medications MEDICAL (GENERAL) HISTORY Type Description Date Medical History Elevated Insulin Level Medical History Severe Degenerative Arthritis LS Medical History Chronic Back Pain Medical History Prediabetic 6.1 AIC -2014 Surgical History No know Surgical history
--- OUTSIDE RECORDS SUMMARY | 2020-02-02 09:52 | XMS REPORT ---
Author Author Aparna BAUGH [facility] Address [address] [place] [address] Care Team Providers Care Clay Maker Name Role Phone ADRIANO BAUGH Unavailable PROBLEMS Type Condition ICD9-CM Code XGP69-PS Code Onset Dates Condition S tatus SNOMED Code Problem Toe pain, left M79.675 Active 89338 0624681159 Problem BMI 45.0-49.9, adult Z68.42 Active 101919232 Problem Morbid obesity due to excess calories E66.01 Active 554760802 Problem Cough R05 Active 02104023 Problem Skin tags, multiple acquired L91.8 A ctive 971408195 Problem Hammertoe of left foot M20.42 Active 835435417 Problem Establishing care with new doctor, encounter for Z 76.89 Active 861044135 Problem Upper respiratory infection with cough and congestion J06.9 Active 22272233 Problem Hammertoe of right foot M20.41 Active 777660202 Problem Mixed hyperlipidemia E78.2 Active 065777806 Problem Type 2 diabetes mellitus wit hout complication, without long-term current use of insulin E11.9 Active 444349044 Problem Dysthymia F34.1 Active 05234030 Problem Seasonal allergic rhinitis, unspecified allergic rhinitis trigger J30.2 Active 509424361 Problem 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 Active 87582607 Problem Chronic seasonal allergic rhinitis, unspecified trigger J30.2 Active 036203285 Problem Lumbar disc disease M51.9 Active 26173004 Problem Essential hypertension I10 Active 40221491 ALLERGIES No Known Allergies ENCOUNTERS Encounter Location Date Diagnosis [facility] [address] [facility] [id number] [address] [place] [address] Feb, [place] of foot L84 ; Hammertoe of right foot M20.41 ; Hammertoe of left foot M20.42 and Type 2 diabetes mellitus with diabetic neuropathy, unspecified whether superintendent container terminal insulin use E11.40 [place] [address] [address] Feb, [place] [address] [address] [place] [id number] [place] [address] Jan, [place] [address] [address] Jan, Peripheral edema R60.9 ; Ess ential hypertension I10 and BMI 50.0- 59.9, adult Z68.43 [place] [address] [address] December, [place] [address] [address] December, [place] [address] [address] December, Upper respiratory infection with cough and congestion J06.9 ; Cough R05 ; Skin tags, multiple acquired L91.8 and BMI 45.0-49.9, adult Z68.42 [place] [address] [address] Nov, Mixed hyperlipidemia E78.2 [place] [address] [address] Nov, [place] [address] [address] Nov, Establishing care with tiera guadarrama, encounter [...] of both lower extremities with complications I83.[address] [address] Oct, Chronic seasonal allergic rh initis, unspecified trigger J30.2 ; Cough due to bronchospasm J98.01 and BMI 45.0-49.9, adult Z68.42 [place] [address] [address] Oct, Type 2 diabetes mellitus wit hout complication, without long-term current use of insulin E11.9 [place] [address] [address] Jun, Type 2 diabetes mellitus wit hout complication, without long-term current use of insulin E11.9 ; Dysthymia F34.1 ; Lumbar disc disease M51.9 ; Chronic seasonal allergic rhinitis, unspecified trigger J30.2 and BMI 40.0-44.9, adult Z68.41 [place] [address] [address] May, [place] [address] [address] Feb, Dysthymia F34.1 ; Lumbar dis c disease M51.9 and Type 2 diabetes mellitus without complication, without long-term current use of insulin E11.9 [place] [address] [address] Feb, Type 2 diabetes mellitus wit hout complication, without long-term current use of insulin E11.9 [place] [address] [address] December, Seasonal allergic rhinitis, unspecified allergic rhinitis trigger J30.2 [place] [address] [address] Nov, [address] [address] Nov, Dysthymia F34.1 and Pre-diab etes R73.03 [place] [address] [address] 15 Oct, 2016 Dysthymia F34.1 [facility] [address] [facility] [id number] [address] [place] [address] Jun, Varicose veins of both lower extremities with complications I83.893 and Lumbar disc disease M51.9 [facility] [address] [place] [id number] [address] [place] [address] Mar, [facility] [address] [address] Oct, [facility] [address] [address] Jun, Insect bite of abdomen, init ial encounter S30.871A and Encounter for immunization Z23 [place] [address] [place] [id number] [address] [place] [address] Apr, [place] [address] [address] Apr, 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 ; Lumbar back pain 724.2 ; Pre-diabetes 790.29 and Left knee pain 719.46 [place] [address] [place] [address] Mar, [place] [address] [place] [id number] [address] [place] [address] Mar, Cough 786.2 and Drug-induced nausea and vomiting 787.01 [facility] [address] [place] [id number] [address] [place] [address] Mar, [facility] [address] [place] [id number] [address] [place] [address] Mar, Elevated glucose 790.29 [facility] [address] [place] [id number] [address] [place] [address] Mar, [facility] [address] [place] [id number] [address] [place] [address] Mar, Elevated glucose 790.29 [facility] [address] [id number] [address] [place] [address] Mar, [facility] [address] [id number] [address] [place] [address] Mar, Elevated glucose 790.29 and Degenerative arthritis of lumbar spine 721.3 [facility] [address] [id number] [address] [place] [address] Feb, Elevated glucose 790.29 [facility] [address] [id number] [address] [place] [address] Feb, Lumbar back pain 724.2 [facility] [address] [id number] [address] [place] [address] Feb, Lumbar back pain 724.2 [facility] [address] [id number] [address] [place] [address] Feb, Routine gynecological examin ation V72.31 ; Pap test, as part of routine gynecological examination V76.2 ; Breast cancer screening V76.10 ; Irregular menses 626.4 ; Dysmenorrhea 625.3 and Routine physicl lab exam V72.62 [facility] [address] [id number] [address] [place] [address] Jan, Eustachian tube dysfunction 381.81 [facility] [address] [id number] [address] [place] [address] Nov, [facility] [address] [id number] [address] [place] [address] Nov, [facility] [address] [id number] [address] [place] [address] Sep, [facility] [address] [id number] [address] [place] [address] Sep, [facility] [address] [id number] [address] [place] [address] Aug, [facility] [address] [facility] [id number] [address] [place] [address] Aug, [facility] [address] [facility] [id number] [address] [place] [address] Jun, [facility] [address] [facility] [id number] [address] [place] [phone] Jun, [facility] [address] [facility] [id number] [address] [place] [address] Jun, [facility] [address] [facility] [id number] [address] [place] [address] Jun, IMMUNIZATIONS No Known Immunizations SOCIAL HISTORY Never Assessed REASON FOR VISIT Leg Swelling-[place]wooden[place], feet are swelling too PLAN OF CARE Activity Details Follow Up 4-6 Weeks Reason:HTN/edema VITAL SIGNS Height 67 in 2018-01-14 Weight 321.9 lbs 2018-01-14 Temperature 98.4 degrees Fahrenheit 2018-01-14 Heart Rate 80 bpm 2018-01-14 Respiratory Rate 20 2018-01-14 BMI 50.41 kg/m2 2018-01-14 Blood pressure systolic 140 mmHg 2018-01-14 Blood pressure diastolic 88 mmHg 2018-01-14 MEDICATIONS Medication Instructions Dosage Frequency Start Date End Date Duration S tatus Test strips Test Strips Test blood sugar (glucocard) Active Glucometer 1 glucometer Test blood sugar (glucocard Active Hydrochlorothiazide 12.5 MG Orally Once a day 1 tablet in the morni ng 24h Jan, 90 day(s) Active Actos 30 MG Orally Once a day TAKE ONE TABLET BY MOUTH ONCE DAILY 24h 30 days Active Lisinopril 10 mg Orally Once a day 1 tablet 24h 18 Nov, 2017 30 day(s) Active Zoloft 25 MG Orally Once a day 1 tablet 24h 30 Active Lipitor 40 mg Orally Once a day 1 tablet 24h 30 Nov, 2017 30 day(s) Active RESULTS No Results PROCEDURES No Known procedures INSTRUCTIONS MEDICATIONS ADMINISTERED No Known Medications MEDICAL (GENERAL) HISTORY Type Description Date Medical History Elevated Insulin Level Medical History Severe Degenerative Arthritis LS Medical History Chronic Back Pain Medical History Prediabetic 6.1 AIC
--- OUTSIDE RECORDS SUMMARY | 2020-02-02 09:52 | XMS REPORT ---
Author Author Aparna ESQUEDA [facility] Address [address] [place] [address] Care Team Providers Care Resolution Expert Name Role Phone MAGALI ESQUEDA Unavailable PROBLEMS Type Condition ICD9-CM Code XMM02-MC Code Onset Dates Condition S tatus SNOMED Code Problem Toe pain, left M79.675 Active 54842 5193222283 Problem BMI 45.0-49.9, adult Z68.42 Active 724469592 Problem Morbid obesity due to excess calories E66.01 Active 867778418 Problem Cough R05 Active 48086634 Problem Skin tags, multiple acquired L91.8 A ctive 893896690 Problem Hammertoe of left foot M20.42 Active 119254164 Problem Establishing care with new doctor, encounter for Z 76.89 Active 138488253 Problem Upper respiratory infection with cough and congestion J06.9 Active 88975575 Problem Hammertoe of right foot M20.41 Active 894424734 Problem Mixed hyperlipidemia E78.2 Active 839076313 Problem Type 2 diabetes mellitus wit hout complication, without long-term current use of insulin E11.9 Active 879567195 Problem Dysthymia F34.1 Active 74055264 Problem Seasonal allergic rhinitis, unspecified allergic rhinitis trigger J30.2 Active 078732912 Problem 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 Active 33685798 Problem Chronic seasonal allergic rhinitis, unspecified trigger J30.2 Active 022778396 Problem Lumbar disc disease M51.9 Active 71298628 Problem Essential hypertension I10 Active 05123348 ALLERGIES No Information ENCOUNTERS Encounter Location Date Diagnosis [facility] [address] [facility] [id number] [address] [place] [address] Jun, [facility] [address] [facility] [id number] [address] [place] [address] Jun, Essential hypertension I10 [facility] [address] [place] [id number] [address] [place] [address] Jun, Dependent edema R60.9 [place] [address] [address] [facility] [id number] [address] [place] [address] May, Type 2 diabetes mellitus wit hout complication, without long-term current use of insulin E11.9 [place] [address] [place] [id number] [address] [place] [address] May, Type 2 diabetes mellitus wit hout complication, without long-term current use of insulin E11.9 ; Essential hypertension I10 ; Dependent edema R60.9 ; Encounter for weight management Z76.89 ; Skin tag L91.8 and BMI 50.0- 59.9, adult Z68.43 [place] [address] [place] [id number] [address] [place] [address] Feb, [place] of foot L84 ; Hammertoe of right foot M20.41 ; Hammertoe of left foot M20.42 and Type 2 diabetes mellitus with diabetic neuropathy, unspecified whether senior living insulin use E11.40 [place] [id number] [place] [address] Feb, [place] [address] [facility] [id number] [address] [place] [address] Jan, [place] [address] [place] [id number] [address] [place] [address] Jan, Peripheral edema R60.9 ; Ess ential hypertension I10 and BMI 50.0- 59.9, adult Z68.43 [place] [address] [facility] [id number] [address] [place] [address] December, [place] [address] [facility] [id number] [address] [place] [phone] December, [place] [address] [facility] [id number] [address] [place] [phone] December, Upper respiratory infection with cough and congestion J06.9 ; Cough R05 ; Skin tags, multiple acquired L91.8 and BMI 45.0-49.9, adult Z68.42 [place] [address] [place] [id number] [address] [place] [address] Nov, Mixed hyperlipidemia E78.2 [place] [address] [place] [id number] [address] [place] [address] Nov, [place] [address] [address] Nov, Establishing care with tiera guadrarama, encounter for Z76.89 ; Type 2 diabetes mellitus without complication, without long-term current use of insulin E11.9 ; Essential hypertension I10 ; Dysthymia F34.1 ; Chronic seasonal allergic rhinitis, unspecified trigger J30.2 ; BMI 45.0-49.9, adult Z68.42 ; Morbid obesity due to excess calories E66.01 ; Toe pain, left M79.675 and Varicose veins of both lower extremities with complications I83.893 [place] [address] [address] Oct, Chronic seasonal allergic rh initis, unspecified trigger J30.2 ; Cough due to bronchospasm J98.01 and BMI 45.0-49.9, adult Z68.42 [place] [address] [address] Oct, Type 2 diabetes mellitus wit hout complication, without long-term current use of insulin E11.9 [place] [address] [place] [id number] [address] [place] [address] Jun, Type 2 diabetes mellitus wit hout complication, without long-term current use of insulin E11.9 ; Dysthymia F34.1 ; Lumbar disc disease M51.9 ; Chronic seasonal allergic rhinitis, unspecified trigger J30.2 and BMI 40.0-44.9, adult Z68.41 [place] [address] [place] [id number] [address] [place] [phone] May, [place] [address] [address] Feb, Dysthymia F34.1 ; Lumbar dis c disease M51.9 and Type 2 diabetes mellitus without complication, without long-term current use of insulin E11.9 [place] [address] [address] Feb, Type 2 diabetes mellitus wit hout complication, without long-term current use of insulin E11.9 [place] [address] [address] December, Seasonal allergic rhinitis, unspecified allergic rhinitis trigger J30.[address] [address] Nov, [place] [address] [address] Nov, Dysthymia F34.1 and Pre-diab etes R73.[address] [address] Oct, Dysthymia F34.[address] [address] Jun, Varicose veins of both lower extremities with complications I83.893 and Lumbar disc disease M51.9 [place] [address] [address] Mar, [address] [address] Oct, [address] [address] Jun, Insect bite of abdomen, init ial encounter S30.871A and Encounter for immunization Z23 [place] [address] [place] [id number] [address] [place] [address] Apr, [address] [address] Apr, 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 ; Lumbar back pain 724.2 ; Pre-diabetes 790.29 and Left knee pain 719.46 [facility] [address] [id number] [address] [place] [phone] Mar, [facility] [address] [id number] [address] [place] [address] Mar, Cough 786.2 and Drug-induced nausea and vomiting 787.01 [facility] [address] [id number] [address] [place] [address] Mar, [facility] [address] [id number] [address] [place] [phone] Mar, Elevated glucose 790.29 [facility] [address] [id number] [address] [place] [phone] Mar, [facility] [address] [id number] [address] [place] [phone] Mar, Elevated glucose 790.29 [facility] [address] [id number] [address] [place] [phone] Mar, [facility] [address] [id number] [address] [place] [phone] Mar, Elevated glucose 790.29 and Degenerative arthritis of lumbar spine 721.3 [facility] [address] [id number] [address] [place] [phone] Feb, Elevated glucose 790.29 [facility] [address] [id number] [address] [place] [address] Feb, Lumbar back pain 724.2 [facility] [address] [id number] [address] [place] [phone] Feb, Lumbar back pain 724.2 [facility] [address] [id number] [address] [place] [phone] Feb, Routine gynecological examin ation V72.31 ; Pap test, as part of routine gynecological examination V76.2 ; Breast cancer screening V76.10 ; Irregular menses 626.4 ; Dysmenorrhea 625.3 and Routine physicl lab exam V72.62 [facility] [address] [id number] [address] [place] [phone] Jan, Eustachian tube dysfunction 381.81 [facility] [address] [id number] [address] [place] [phone] Nov, [facility] [address] [id number] [address] [place] [phone] Nov, [facility] [address] [id number] [address] [place] [phone] Sep, [facility] [address] [id number] [address] [place] [phone] Sep, [facility] [address] [id number] [address] [place] [phone] Aug, [facility] [address] [id number] [address] [place] [phone] Aug, [facility] [address] [id number] [address] [place] [phone] Jun, [facility] [address] [id number] [address] [place] [phone] Jun, [facility] [address] [id number] [address] [place] [phone] Jun, [facility] [address] [id number] [address] [place] [phone] Jun, IMMUNIZATIONS No Known Immunizations SOCIAL HISTORY Never Assessed REASON FOR VISIT Controlled Med Refill PLAN OF CARE VITAL SIGNS MEDICATIONS Medication Instructions Dosage Frequency Start Date End Date Duration S oliverus Lisinopril 10 mg Orally Once a day 1 tablet 24h Active RESULTS No Results PROCEDURES No Known procedures INSTRUCTIONS MEDICATIONS ADMINISTERED No Known Medications MEDICAL (GENERAL) HISTORY Type Description Date Medical History Elevated Insulin Level Medical History Severe Degenerative Arthritis LS Medical History Chronic Back Pain Medical History Prediabetic 6.1 AIC Surgical History No know Surgical history
--- OUTSIDE RECORDS SUMMARY | 2020-02-02 09:52 | XMS REPORT ---
Author Author Aparna ESQUEDA [facility] Address [address] [place] [address] Care Team Providers Care Substitute Crossing Guard Name Role Phone MAGALI ESQUEDA Unavailable PROBLEMS Type Condition ICD9-CM Code [id number] Code Onset Dates Condition S tatus SNOMED Code Problem 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 Active 89071549 Problem Chronic seasonal allergic rhinitis, unspecified trigger J30.2 Active 154672105 Problem Dysthymia F34.1 Active 98942479 Problem Mixed hyperlipidemia E78.2 Active 286092399 Problem Type 2 diabetes mellitus wit hout complication, without long-term current use of insulin E11.9 Active 968866574 Problem Lumbar disc disease M51.9 Active 60476954 Problem Irregular menstrual bleeding N92.6 A ctive 76572789 Problem Skin tags, multiple acquired L91.8 A ctive 693629083 Problem Hammertoe of left foot M20.42 Active 808580554 Problem Essential hypertension I10 Active 91101536 Problem Cough R05 Active 76358349 Problem Hammertoe of right foot M20.41 Active 653530204 ALLERGIES No Known Allergies ENCOUNTERS Encounter Location Date Diagnosis [place] [address] [address] [facility] [id number] [address] [place] [phone] Jul, Weight loss counseling, enco unter for Z71.3 [facility] [address] [facility] [id number] [address] [place] [phone] Jun, [place] [address] [address] [place] [id number] [address] [place] [phone] 14 Jun, 2018 Weight loss counseling, enco unter for Z71.3 ; Essential hypertension I10 ; Irregular menstrual bleeding N92.6 ; Skin tags, multiple acquired L91.8 ; Abdominal pain R10.9 and BMI 45.0-49.9, adult Z68.42 [facility] [address] [facility] [id number] [address] [place] [phone] Jun, Essential hypertension I10 [place] [address] [address] [place] [id number] [address] [place] [phone] Jun, Dependent edema R60.9 [place] [address] [address] [place] [id number] [address] [place] [phone] May, Type 2 diabetes mellitus wit hout complication, without long-term current use of insulin E11.9 [place] [address] [address] [place] [id number] [address] [place] [phone] 17 May, 2018 Type 2 diabetes mellitus wit hout complication, without long-term current use of insulin E11.9 ; Essential hypertension I10 ; Dependent edema R60.9 ; Encounter for weight management Z76.89 ; Skin tag L91.8 and BMI 50.0- 59.9, adult Z68.43 [place] [address] [place] [id number] [address] [place] [phone] 20 Feb, 2018 [place] of foot L84 ; Hammertoe of right foot M20.41 ; Hammertoe of left foot M20.42 and Type 2 diabetes mellitus with diabetic neuropathy, unspecified whether senior living insulin use E11.40 [place] [address] [address] [place] [id number] [address] [place] [phone] Feb, [place] [address] [address] [place] [id number] [address] [place] [phone] Jan, [place] [address] [address] [place] [id number] [address] [place] [phone] Jan, Peripheral edema R60.9 ; Ess ential hypertension I10 and BMI 50.0- 59.9, adult Z68.43 [place] [address] [address] [place] [id number] [address] [place] [phone] December, [place] [address] [address] [place] [id number] [address] [place] [phone] December, [place] [address] [address] [place] [id number] [place] [phone] December, Upper respiratory infection with cough and congestion J06.9 ; Cough R05 ; Skin tags, multiple acquired L91.8 and BMI 45.0-49.9, adult Z68.42 [place] [address] [address] Nov, Mixed hyperlipidemia E78.[address] [address] Nov, [place] [address] [address] Nov, Establishing care with tiera guadarrama, elmer for Z76.89 ; Type 2 diabetes mellitus without complication, without long-term current use of insulin E11.9 ; Essential hypertension I10 ; Dysthymia F34.1 ; Chronic seasonal allergic rhinitis, unspecified trigger J30.2 ; BMI 45.0-49.9, adult Z68.42 ; Morbid obesity due to excess calories E66.01 ; Toe pain, left M79.675 and Varicose veins of both lower extremities with complications I83.[address] [address] Oct, Chronic seasonal allergic rh initis, unspecified trigger J30.2 ; Cough due to bronchospasm J98.01 and BMI 45.0-49.9, adult Z68.42 [place] [address] [address] Oct, Type 2 diabetes mellitus wit hout complication, without long-term current use of insulin E11.[address] [address] Jun, Type 2 diabetes mellitus wit hout complication, without long-term current use of insulin E11.9 ; Dysthymia F34.1 ; Lumbar disc disease M51.9 ; Chronic seasonal allergic rhinitis, unspecified trigger J30.2 and BMI 40.0-44.9, adult Z68.41 [place] [id number] [place] [address] May, [place] [address] [phone] Feb, Dysthymia F34.1 ; Lumbar dis c disease M51.9 and Type 2 diabetes mellitus without complication, without long-term current use of insulin E11.9 [place] [address] [address] Feb, Type 2 diabetes mellitus wit hout complication, without long-term current use of insulin E11.9 [place] [address] [address] December, Seasonal allergic rhinitis, unspecified allergic rhinitis trigger J30.2 [place] [address] [address] Nov, [place] [address] [address] Nov, Dysthymia F34.1 and Pre-diab etes R73.03 [place] [address] [address] Oct, Dysthymia F34.1 [place] [address] [address] Jun, Varicose veins of both lower extremities with complications I83.893 and Lumbar disc disease M51.9 [place] [address] [address] [place] [id number] [address] [place] [phone] Mar, [place] [address] [address] Oct, [place] [address] [address] Jun, Insect bite of abdomen, init ial encounter S30.871A and Encounter for immunization Z23 [place] [address] [address] Apr, [facility] [address] [id number] [address] [place] [phone] Apr, 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 ; Lumbar back pain 724.2 ; Pre-diabetes 790.29 and Left knee pain 719.46 [facility] [address] [id number] [address] [place] [phone] Mar, [facility] [address] [id number] [address] [place] [phone] Mar, Cough 786.2 and Drug-induced nausea and vomiting 787.01 [facility] [address] [id number] [address] [place] [phone] Mar, [facility] [address] [id number] [address] [place] [phone] Mar, Elevated glucose 790.29 [facility] [address] [id number] [address] [place] [phone] Mar, [facility] [address] [id number] [address] [place] [phone] Mar, Elevated glucose 790.29 [facility] [address] [id number] [address] [place] [id number] Mar, [facility] [address] [id number] [address] [place] [id number] Mar, Elevated glucose 790.29 and Degenerative arthritis of lumbar spine 721.3 [facility] [address] [id number] [address] [place] [phone] Feb, Elevated glucose 790.29 [facility] [address] [id number] [address] [place] [phone] Feb, Lumbar back pain 724.2 [facility] [address] [id number] [address] [place] [phone] Feb, Lumbar back pain 724.2 [facility] [address] [id number] [address] [place] [id number] 14 Feb, 2015 Routine gynecological examin ation V72.31 ; Pap test, as part of routine gynecological examination V76.2 ; Breast cancer screening V76.10 ; Irregular menses 626.4 ; Dysmenorrhea 625.3 and Routine physicl lab exam V72.62 [facility] [address] [id number] [address] [place] [phone] Jan, Eustachian tube dysfunction 381.81 [facility] [address] [id number] [address] [place] [phone] Nov, [facility] [address] [id number] [address] [place] [phone] Nov, [facility] [address] [id number] [address] [place] [phone] Sep, [facility] [address] [id number] [address] [place] [phone] Sep, [facility] [address] [id number] [address] [place] [phone] Aug, [facility] [address] [id number] [address] [place] [phone] Aug, [facility] [address] [id number] [address] [place] [id number] Jun, [facility] [address] [id number] [address] [place] [phone] Jun, [facility] [address] [id number] [address] [place] [phone] Jun, [facility] [address] [facility] [id number] [address] [place] [id number] Jun, IMMUNIZATIONS No Known Immunizations SOCIAL HISTORY Never Assessed REASON FOR VISIT Swelling F/U--tcuppettRN PLAN OF CARE Activity Details Follow Up 4 Months Reason:weight loss VITAL SIGNS Height 67 in 2018-07-23 Weight 303.7 lbs 2018-07-23 Temperature 97.9 degrees Fahrenheit 2018-07-23 Heart Rate 76 bpm 2018-07-23 Respiratory Rate 20 2018-07-23 BMI 47.56 kg/m2 2018-07-23 Blood pressure systolic 124 mmHg 2018-07-23 Blood pressure diastolic 78 mmHg 2018-07-23 MEDICATIONS Medication Instructions Dosage Frequency Start Date End Date Duration S anu Lisinopril-Hydrochlorothiazide 10-12.5 MG Orally Once a day 1 table t 24h Jun, 30 day(s) Active Test strips Test Strips Test blood sugar (glucocard) Active Diethylpropion HCl ER 75 MG Orally Once a day 1 tablet 24h 17 2017 28 days Active Tradjenta 5 mg Orally Once a day 1 tablet 24h May, 3 0 day(s) Active Glucometer 1 glucometer Test blood sugar (glucocard Active RESULTS No Results PROCEDURES No Known procedures INSTRUCTIONS MEDICATIONS ADMINISTERED No Known Medications MEDICAL (GENERAL) HISTORY Type Description Date Medical History Elevated Insulin Level Medical History Severe Degenerative Arthritis LS Medical History Chronic Back Pain Medical History Prediabetic 6.1 AIC Surgical History No know Surgical history
--- OUTSIDE RECORDS SUMMARY | 2020-02-02 09:52 | XMS REPORT ---
Author Author Aparna Laboy Doctor Organization [facility] Address Unknown Phone Unavailable Care Team Providers Care Ultrasound Technologist Name Role Phone Migration, Doctor Unavailable Unavailable PROBLEMS Type Condition ICD9-CM Code JSS53-PF Code Onset Dates Condition S tatus SNOMED Code Problem 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 Active 50123016 Problem Dysthymia F34.1 Active 15052420 Problem Chronic seasonal allergic rhinitis, unspecified trigger J30.2 Active 028735335 Problem Mixed hyperlipidemia E78.2 Active 098178358 Problem Skin tags, multiple acquired L91.8 A ctive 622286100 Problem Lumbar disc disease M51.9 Active 52609879 Problem Irregular menstrual bleeding N92.6 A ctive 37504702 Problem Type 2 diabetes mellitus wit hout complication, without long-term current use of insulin E11.9 Active 522059507 Problem Essential hypertension I10 Active 43087133 Problem Hammertoe of left foot M20.42 Active 706877922 Problem Hammertoe of right foot M20.41 Active 843926418 Problem Cough R05 Active 35368944 ALLERGIES No Information ENCOUNTERS Encounter Location Date Diagnosis [place] [address] [place] [id number] [address] [place] [phone] Jul, Weight loss counseling, enco unter for Z71.3 [place] [address] [address] [place] [id number] [address] [place] [phone] Jun, [place] [address] [address] [place] [id number] [address] [place] [phone] Jun, Weight loss counseling, enco unter for Z71.3 ; Essential hypertension I10 ; Irregular menstrual bleeding N92.6 ; Skin tags, multiple acquired L91.8 ; Abdominal pain R10.9 and BMI 45.0-49.9, adult Z68.42 [place] [address] [address] [place] [id number] [address] [place] [id number] Jun, Essential hypertension I10 [place] [address] [address] [facility] [id number] [address] [place] [phone] Jun, Dependent edema R60.9 [place] [address] [address] [facility] [id number] [address] [place] [phone] May, Type 2 diabetes mellitus wit hout complication, without long-term current use of insulin E11.9 [place] [address] [place] [id number] [address] [place] [phone] May, Type 2 diabetes mellitus wit hout complication, without long-term current use of insulin E11.9 ; Essential hypertension I10 ; Dependent edema R60.9 ; Encounter for weight management Z76.89 ; Skin tag L91.8 and BMI 50.0- 59.9, adult Z68.43 [place] [address] [place] [id number] [address] [place] [phone] Feb, [place] of foot L84 ; Hammertoe of right foot M20.41 ; Hammertoe of left foot M20.42 and Type 2 diabetes mellitus with diabetic neuropathy, 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 E11.40 [place] [address] [place] [id number] [address] [place] [phone] Feb, [place] [address] [place] [id number] [address] [place] [phone] Jan, [place] [address] [place] [id number] [address] [place] [phone] Jan, Peripheral edema R60.9 ; Ess ential hypertension I10 and BMI 50.0- 59.9, adult Z68.43 [place] [address] [address] [facility] [id number] [address] [place] [phone] December, [place] [address] [place] [id number] [address] [place] [phone] December, [place] [address] [place] [id number] [address] [place] [phone] December, Upper respiratory infection with cough and congestion J06.9 ; Cough R05 ; Skin tags, multiple acquired L91.8 and BMI 45.0-49.9, adult Z68.42 [place] [address] [address] Nov, Mixed hyperlipidemia E78.2 [place] [address] [address] Nov, [place] [address] [address] Nov, Establishing care with tiera guadarrama, encounter [...] of both lower extremities with complications I83.893 [place] [address] [address] Oct, Chronic seasonal allergic rh initis, unspecified trigger J30.2 ; Cough due to bronchospasm J98.01 and BMI 45.0-49.9, adult Z68.42 [place] [address] [address] Oct, Type 2 diabetes mellitus wit hout complication, without long-term current use of insulin E11.9 [place] [address] [place] [id number] [address] [place] [phone] Jun, Type 2 diabetes mellitus wit hout complication, without long-term current use of insulin E11.9 ; Dysthymia F34.1 ; Lumbar disc disease M51.9 ; Chronic seasonal allergic rhinitis, unspecified trigger J30.2 and BMI 40.0-44.9, adult Z68.41 [place] [address] [place] [id number] [address] [place] [phone] May, [place] [address] [place] [id number] [address] [place] [phone] Feb, Dysthymia F34.1 ; Lumbar dis c disease M51.9 and Type 2 diabetes mellitus without complication, without long-term current use of insulin E11.9 [place] [address] [address] Feb, Type 2 diabetes mellitus wit hout complication, without long-term current use of insulin E11.9 [place] [address] [address] December, Seasonal allergic rhinitis, unspecified allergic rhinitis trigger J30.[address] [address] Nov, [place] [address] [address] Nov, Dysthymia F34.1 and Pre-diab etes R73.03 [place] [address] [address] Oct, Dysthymia F34.1 [place] [address] [address] Jun, Varicose veins of both lower extremities with complications I83.893 and Lumbar disc disease M51.9 [place] [address] [address] [place] [address] Mar, [place] [address] [address] Oct, [place] [address] [address] Jun, Insect bite of abdomen, init ial encounter S30.871A and Encounter for immunization Z23 [place] [address] [address] [place] [phone] 28 Apr, 2015 [place] [address] [address] Apr, 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 ; Lumbar back pain 724.2 ; Pre-diabetes 790.29 and Left knee pain 719.46 [facility] [address] [id number] [address] [place] [id number] Mar, [facility] [address] [id number] [address] [place] [phone] Mar, Cough 786.2 and Drug-induced nausea and vomiting 787.01 [facility] [address] [id number] [address] [place] [phone] Mar, [facility] [address] [id number] [address] [place] [phone] Mar, Elevated glucose 790.29 [facility] [address] [id number] [address] [place] [phone] Mar, [facility] [address] [id number] [address] [place] [phone] Mar, Elevated glucose 790.29 [facility] [address] [id number] [address] [place] [phone] Mar, [facility] [address] [id number] [address] [place] [phone] Mar, Elevated glucose 790.29 and Degenerative arthritis of lumbar spine 721.3 [facility] [address] [id number] [address] [place] [id number] Feb, Elevated glucose 790.29 [facility] [address] [id number] [address] [place] [phone] Feb, Lumbar back pain 724.2 [facility] [address] [id number] [address] [place] [phone] Feb, Lumbar back pain 724.2 [facility] [address] [id number] [address] [place] [phone] 14 Ravi, 2015 Routine gynecological examin ation V72.31 ; Pap test, as part of routine gynecological examination V76.2 ; Breast cancer screening V76.10 ; Irregular menses 626.4 ; Dysmenorrhea 625.3 and Routine physicl lab exam V72.62 [facility] [address] [id number] [address] [place] [phone] 29 Jan, 2015 Eustachian tube dysfunction 381.81 [facility] [address] [id number] [address] [place] [phone] Nov, [facility] [address] [id number] [address] [place] [phone] Nov, [facility] [address] [id number] [address] [place] [phone] Sep, [facility] [address] [id number] [address] [place] [phone] Sep, [facility] [address] [id number] [address] [place] [phone] Aug, [facility] [address] [id number] [address] [place] [phone] Aug, [facility] [address] [id number] [address] [place] [phone] Jun, [facility] [address] [id number] [address] [place] [phone] Jun, [facility] [address] [id number] [address] [place] [phone] Jun, [facility] [address] [id number] [address] [place] [phone] Jun, IMMUNIZATIONS No Known Immunizations SOCIAL HISTORY Never Assessed REASON FOR VISIT [facility] [place] C[place] VITAL SIGNS MEDICATIONS Medication Instructions Dosage Frequency Start Date End Date Duration S tatus Diflucan 150 mg take 1 tablet by Ora l route once 1 time per day for 2 days VOUCHER IF OVER 4$ Jun, Active RESULTS No Results PROCEDURES No Known procedures INSTRUCTIONS MEDICATIONS ADMINISTERED No Known Medications MEDICAL (GENERAL) HISTORY Type Description Date Medical History Elevated Insulin Level Medical History Severe Degenerative Arthritis LS Medical History Chronic Back Pain Medical History Prediabetic 6.1 AIC Surgical History No know Surgical history
--- OUTSIDE RECORDS SUMMARY | 2020-02-02 09:52 | XMS REPORT ---
Author Author Aparna RIDLEY Organization [facility] Address [address] [place] [address] Care Team Providers Care Manager Food Safety Name Role Phone TITA RIDLEY Unavailable PROBLEMS Type Condition ICD9-CM Code [id number] Code Onset Dates Condition S tatus SNOMED Code Problem Toe pain, left M79.675 Active 45193 [id number] Problem BMI 45.0-49.9, adult Z68.42 Active 597234154 Problem Morbid obesity due to excess calories E66.01 Active 588073325 Problem Cough R05 Active 51691739 Problem Skin tags, multiple acquired L91.8 A ctive 570966668 Problem Hammertoe of left foot M20.42 Active 075499693 Problem Establishing care with new doctor, encounter for Z 76.89 Active 285356358 Problem Upper respiratory infection with cough and congestion J06.9 Active 91465058 Problem Hammertoe of right foot M20.41 Active 974433128 Problem Mixed hyperlipidemia E78.2 Active 804669721 Problem Type 2 diabetes mellitus wit hout complication, without long-term current use of insulin E11.9 Active 739310714 Problem Dysthymia F34.1 Active 55820770 Problem Seasonal allergic rhinitis, unspecified allergic rhinitis trigger J30.2 Active 206528704 Problem 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 Active 96043213 Problem Chronic seasonal allergic rhinitis, unspecified trigger J30.2 Active 330363728 Problem Lumbar disc disease M51.9 Active 94141293 Problem Essential hypertension I10 Active 48989305 ALLERGIES No Information ENCOUNTERS Encounter Location Date Diagnosis [facility] [address] [facility] [id number] [address] [place] [address] Feb, [place] of foot L84 ; Hammertoe of right foot M20.41 ; Hammertoe of left foot M20.42 and Type 2 diabetes mellitus with diabetic neuropathy, unspecified whether halfway insulin use E11.40 [place] [address] [address] Feb, [place] [address] [address] Jan, [place] [address] [address] Jan, Peripheral edema R60.9 ; Ess ential hypertension I10 and BMI 50.0- 59.9, adult Z68.43 [place] [address] [address] December, [place] [address] [address] December, [place] [address] [address] December, Upper respiratory infection with cough and congestion J06.9 ; Cough R05 ; Skin tags, multiple acquired L91.8 and BMI 45.0-49.9, adult Z68.42 [place] [address] [address] Nov, Mixed hyperlipidemia E78.2 [place] [address] [address] Nov, [place] [address] [address] Nov, Establishing care with tiera guadarrama, encounter [...] of both lower extremities with complications I83.893 [place] [address] [address] Oct, Chronic seasonal allergic rh initis, unspecified trigger J30.2 ; Cough due to bronchospasm J98.01 and BMI 45.0-49.9, adult Z68.42 [place] [address] [address] Oct, Type 2 diabetes mellitus wit hout complication, without long-term current use of insulin E11.9 [place] [address] [address] Jun, Type 2 diabetes mellitus wit hout complication, without long-term current use of insulin E11.9 ; Dysthymia F34.1 ; Lumbar disc disease M51.9 ; Chronic seasonal allergic rhinitis, unspecified trigger J30.2 and BMI 40.0-44.9, adult Z68.41 [place] [address] [address] May, [place] [address] [address] Feb, Dysthymia F34.1 ; Lumbar dis c disease M51.9 and Type 2 diabetes mellitus without complication, without long-term current use of insulin E11.9 [place] [address] [address] Feb, Type 2 diabetes mellitus wit hout complication, without long-term current use of insulin E11.9 [place] [address] [address] December, Seasonal allergic rhinitis, unspecified allergic rhinitis trigger J30.2 [place] [address] [address] Nov, [address] [address] Nov, Dysthymia F34.1 and Pre-diab etes R73.03 [place] [address] [address] Oct, Dysthymia F34.1 [facility] [address] [place] [id number] [address] [place] [address] Jun, Varicose veins of both lower extremities with complications I83.893 and Lumbar disc disease M51.9 [facility] [address] [place] [id number] [address] [place] [address] Mar, [facility] [address] [address] Oct, [facility] [address] [address] Jun, Insect bite of abdomen, init ial encounter S30.871A and Encounter for immunization Z23 [place] [address] [place] [id number] [place] [address] Apr, [place] [address] [address] Apr, 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 ; Lumbar back pain 724.2 ; Pre-diabetes 790.29 and Left knee pain 719.46 [place] [address] [place] [id number] [address] [place] [address] Mar, [facility] [address] [place] [id number] [address] [place] [address] Mar, Cough 786.2 and Drug-induced nausea and vomiting 787.01 [facility] [address] [place] [id number] [address] [place] [address] Mar, [facility] [address] [place] [id number] [address] [place] [address] Mar, Elevated glucose 790.29 [facility] [address] [place] [id number] [address] [place] [address] Mar, [facility] [address] [place] [id number] [address] [place] [address] Mar, Elevated glucose 790.29 [facility] [address] [id number] [address] [place] [address] Mar, [facility] [address] [id number] [address] [place] [address] Mar, Elevated glucose 790.29 and Degenerative arthritis of lumbar spine 721.3 [facility] [address] [id number] [address] [place] [address] Feb, Elevated glucose 790.29 [facility] [address] [id number] [address] [place] [address] Feb, Lumbar back pain 724.2 [facility] [address] [id number] [address] [place] [address] Feb, Lumbar back pain 724.2 [facility] [address] [id number] [address] [place] [address] Feb, Routine gynecological examin ation V72.31 ; Pap test, as part of routine gynecological examination V76.2 ; Breast cancer screening V76.10 ; Irregular menses 626.4 ; Dysmenorrhea 625.3 and Routine physicl lab exam V72.62 [facility] [address] [id number] [address] [place] [address] Jan, Eustachian tube dysfunction 381.81 [facility] [address] [id number] [address] [place] [phone] Nov, [facility] [address] [id number] [address] [place] [address] Nov, [facility] [address] [id number] [address] [place] [phone] Sep, [facility] [address] [id number] [address] [place] [address] Sep, [facility] [address] [id number] [address] [place] [phone] Aug, [facility] [address] [id number] [address] [place] [address] Aug, [facility] [address] [facility] [id number] [address] [place] [address] Jun, [facility] [address] [facility] [id number] [address] [place] [address] Jun, [facility] [address] [facility] [id number] [address] [place] [phone] Jun, [facility] [address] [facility] [id number] [address] [place] [address] Jun, IMMUNIZATIONS No Known Immunizations SOCIAL HISTORY Never Assessed REASON FOR VISIT Requests return call PLAN OF CARE VITAL SIGNS MEDICATIONS Unknown Medications RESULTS No Results PROCEDURES No Known procedures INSTRUCTIONS MEDICATIONS ADMINISTERED No Known Medications MEDICAL (GENERAL) HISTORY Type Description Date Medical History Elevated Insulin Level Medical History Severe Degenerative Arthritis LS Medical History Chronic Back Pain Medical History Prediabetic 6.1 AIC
--- OUTSIDE RECORDS SUMMARY | 2020-02-02 09:52 | XMS REPORT ---
Author Author Aparna BAUGH [facility] Address [address] [place] [address] Care Team Providers Care Veneer Taper Name Role Phone ADRIANO BAUGH Unavailable PROBLEMS Type Condition ICD9-CM Code [id number] Code Onset Dates Condition S tatus SNOMED Code Problem Toe pain, left M79.675 Active 48568 [id number] Problem BMI 45.0-49.9, adult Z68.42 Active 583838711 Problem Morbid obesity due to excess calories E66.01 Active 452027373 Problem Cough R05 Active 67874763 Problem Skin tags, multiple acquired L91.8 A ctive 586827391 Problem [place] of left foot M20.42 Active 161462636 Problem Establishing care with new doctor, encounter for Z 76.89 Active 910138383 Problem Upper respiratory infection with cough and congestion J06.9 Active 70412563 Problem [place] of right foot M20.41 Active 968317948 Problem Mixed hyperlipidemia E78.2 Active 271350727 Problem Type 2 diabetes mellitus wit hout complication, without long-term current use of insulin E11.9 Active 839252711 Problem Dysthymia F34.1 Active 92703900 Problem Seasonal allergic rhinitis, unspecified allergic rhinitis trigger J30.2 Active 665618278 Problem 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 Active 86355793 Problem Chronic seasonal allergic rhinitis, unspecified trigger J30.2 Active 753531968 Problem Lumbar disc disease M51.9 Active 97643124 Problem Essential hypertension I10 Active 39965699 ALLERGIES No Information ENCOUNTERS Encounter Location Date Diagnosis [facility] [address] [facility] [id number] [address] [place] [address] Feb, [place] of foot L84 ; [place] of right foot M20.41 ; [place] of left foot M20.42 and Type 2 diabetes mellitus with diabetic neuropathy, unspecified whether long term care administrator insulin use E11.40 [place] [address] [address] Feb, [place] [address] [address] Jan, [place] [address] [address] Jan, Peripheral edema R60.9 ; Ess ential hypertension I10 and BMI 50.0- 59.9, adult Z68.43 [place] [address] [address] December, [place] [address] [address] December, [place] [address] [address] December, Upper respiratory infection with cough and congestion J06.9 ; Cough R05 ; Skin tags, multiple acquired L91.8 and BMI 45.0-49.9, adult Z68.42 [place] [address] [address] Nov, Mixed hyperlipidemia E78.2 [place] [address] [address] Nov, [place] [address] [address] Nov, Establishing care with tiera guadarrama, encounter [...] of both lower extremities with complications I83.[address] [address] Oct, Chronic seasonal allergic rh initis, unspecified trigger J30.2 ; Cough due to bronchospasm J98.01 and BMI 45.0-49.9, adult Z68.42 [place] [address] [address] Oct, Type 2 diabetes mellitus wit hout complication, without long-term current use of insulin E11.9 [place] [address] [address] Jun, Type 2 diabetes mellitus wit hout complication, without long-term current use of insulin E11.9 ; Dysthymia F34.1 ; Lumbar disc disease M51.9 ; Chronic seasonal allergic rhinitis, unspecified trigger J30.2 and BMI 40.0-44.9, adult Z68.41 [place] [address] [address] May, [place] [address] [address] Feb, Dysthymia F34.1 ; Lumbar dis c disease M51.9 and Type 2 diabetes mellitus without complication, without long-term current use of insulin E11.9 [place] [address] [address] Feb, Type 2 diabetes mellitus wit hout complication, without long-term current use of insulin E11.9 [place] [address] [address] December, Seasonal allergic rhinitis, unspecified allergic rhinitis trigger J30.2 [place] [address] [address] Nov, [address] [address] Nov, Dysthymia F34.1 and Pre-diab etes R73.03 [place] [address] [address] Oct, Dysthymia F34.1 [facility] [address] [place] [id number] [address] [place] [address] Jun, Varicose veins of both lower extremities with complications I83.893 and Lumbar disc disease M51.9 [facility] [address] [place] [id number] [address] [place] [address] Mar, [facility] [address] [address] Oct, [facility] [address] [address] Jun, Insect bite of abdomen, init ial encounter S30.871A and Encounter for immunization Z23 [place] [address] [place] [id number] [place] [address] Apr, [place] [address] [address] Apr, 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 ; Lumbar back pain 724.2 ; Pre-diabetes 790.29 and Left knee pain 719.46 [place] [address] [address] Mar, [facility] [address] [place] [id number] [address] [place] [address] Mar, Cough 786.2 and Drug-induced nausea and vomiting 787.01 [facility] [address] [place] [id number] [address] [place] [address] Mar, [facility] [address] [place] [id number] [address] [place] [address] Mar, Elevated glucose 790.29 [facility] [address] [place] [id number] [address] [place] [address] Mar, [facility] [address] [place] [id number] [address] [place] [address] Mar, Elevated glucose 790.29 [facility] [address] [id number] [address] [place] [phone] Mar, [facility] [address] [id number] [address] [place] [address] Mar, Elevated glucose 790.29 and Degenerative arthritis of lumbar spine 721.3 [facility] [address] [id number] [address] [place] [address] Feb, Elevated glucose 790.29 [facility] [address] [id number] [address] [place] [address] Feb, Lumbar back pain 724.2 [facility] [address] [id number] [address] [place] [phone] Feb, Lumbar back pain 724.2 [facility] [address] [id number] [address] [place] [address] Feb, Routine gynecological examin ation V72.31 ; Pap test, as part of routine gynecological examination V76.2 ; Breast cancer screening V76.10 ; Irregular menses 626.4 ; Dysmenorrhea 625.3 and Routine physicl lab exam V72.62 [facility] [address] [id number] [address] [place] [address] Jan, Eustachian tube dysfunction 381.81 [facility] [address] [id number] [address] [place] [phone] Nov, [facility] [address] [id number] [address] [place] [phone] Nov, [facility] [address] [id number] [address] [place] [address] Sep, [facility] [address] [id number] [address] [place] [phone] Sep, [facility] [address] [id number] [address] [place] [phone] Aug, [facility] [address] [facility] [id number] [address] [place] [phone] Aug, [facility] [address] [facility] [id number] [address] [place] [phone] Jun, [facility] [address] [facility] [id number] [address] [place] [phone] Jun, [facility] [address] [facility] [id number] [address] [place] [phone] Jun, [facility] [address] [facility] [id number] [address] [place] [phone] Jun, IMMUNIZATIONS No Known Immunizations SOCIAL HISTORY Never Assessed REASON FOR VISIT questions PLAN OF CARE VITAL SIGNS MEDICATIONS Unknown Medications RESULTS No Results PROCEDURES No Known procedures INSTRUCTIONS MEDICATIONS ADMINISTERED No Known Medications MEDICAL (GENERAL) HISTORY Type Description Date Medical History Elevated Insulin Level Medical History Severe Degenerative Arthritis LS Medical History Chronic Back Pain Medical History Prediabetic 6.1 AIC
--- OUTSIDE RECORDS SUMMARY | 2020-02-02 09:53 | XMS REPORT ---
Author Author Aparna RIDLEY [facility] Address [address] [place] [address] Care Team Providers Care Construction Plumber Name Role Phone TITA RIDLEY Unavailable PROBLEMS Type Condition ICD9-CM Code [id number] Code Onset Dates Condition S tatus SNOMED Code Problem Seasonal allergic rhinitis, unspecified allergic rhinitis trigger J30.2 Active 573380805 Problem Dysthymia F34.1 Active 85981166 Problem Type 2 diabetes mellitus wit hout complication, without long-term current use of insulin E11.9 Active 175814555 Problem Lumbar disc disease M51.9 Active 79804326 Problem 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 Active 19765230 ALLERGIES No Information SOCIAL HISTORY Never Assessed PLAN OF CARE VITAL SIGNS MEDICATIONS Unknown Medications RESULTS No Results PROCEDURES Procedure Date Ordered Result Body Site KENALOG 40 MG/ML (PER 10 MG) December 21, 2016 THER/PROPH/DIAG INJ, SC/IM December 21, 2016 IMMUNIZATIONS Vaccine Route Administration Date Status KENALOG 40 MG/ML (PER 10 MG) IM Intramuscular December 21, 2016 Ad ministered MEDICAL (GENERAL) HISTORY Type Description Date Medical History Elevated Insulin Level Medical History Severe Degenerative Arthritis LS Medical History Chronic Back Pain Medical History Prediabetic 6.1 AIC
--- OUTSIDE RECORDS SUMMARY | 2020-02-02 09:53 | XMS REPORT ---
Author Author Aparna ESQUEDA [facility] Address [address] [place] [address] Care Team Providers Care Bus And Rail Operator Name Role Phone MAGALI ESQUEDA Unavailable PROBLEMS Type Condition ICD9-CM Code WPD16-BI Code Onset Dates Condition S tatus SNOMED Code Problem Toe pain, left M79.675 Active 69865 [id number] Problem BMI 45.0-49.9, adult Z68.42 Active 187471934 Problem Morbid obesity due to excess calories E66.01 Active 318002624 Problem Cough R05 Active 22069212 Problem Skin tags, multiple acquired L91.8 A ctive 168062779 Problem Hammertoe of left foot M20.42 Active 853268069 Problem Establishing care with new doctor, encounter for Z 76.89 Active 745542234 Problem Upper respiratory infection with cough and congestion J06.9 Active 82616166 Problem Hammertoe of right foot M20.41 Active 135295115 Problem Mixed hyperlipidemia E78.2 Active 828555608 Problem Type 2 diabetes mellitus wit hout complication, without long-term current use of insulin E11.9 Active 860065969 Problem Dysthymia F34.1 Active 01917700 Problem Seasonal allergic rhinitis, unspecified allergic rhinitis trigger J30.2 Active 861185550 Problem 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 Active 20949366 Problem Chronic seasonal allergic rhinitis, unspecified trigger J30.2 Active 047381774 Problem Lumbar disc disease M51.9 Active 61279843 Problem Essential hypertension I10 Active 80803559 ALLERGIES No Information ENCOUNTERS Encounter Location Date Diagnosis [facility] [address] [id number] [place] [address] Feb, 2018 [place] of foot L84 ; Hammertoe of right foot M20.41 ; Hammertoe of left foot M20.42 and Type 2 diabetes mellitus with diabetic neuropathy, unspecified whether superintendent terminal insulin use E11.40 [place] [address] [address] Feb, [place] [address] [address] Jan, [place] [address] [place] [id number] [place] [address] Jan, Peripheral edema R60.9 ; Ess ential hypertension I10 and BMI 50.0- 59.9, adult Z68.43 [place] [address] [address] December, [place] [address] [address] December, [place] [address] [address] December, Upper respiratory infection with cough and congestion J06.9 ; Cough R05 ; Skin tags, multiple acquired L91.8 and BMI 45.0-49.9, adult Z68.42 [place] [address] [address] Nov, Mixed hyperlipidemia E78.2 [place] [address] [place] [id number] [place] [address] Nov, [place] [address] [address] Nov, Establishing care with tiera guadarrama, encounter [...] of both lower extremities with complications I83.893 [place] [address] [address] Oct, Chronic seasonal allergic rh initis, unspecified trigger J30.2 ; Cough due to bronchospasm J98.01 and BMI 45.0-49.9, adult Z68.42 [place] [address] [address] Oct, Type 2 diabetes mellitus wit hout complication, without long-term current use of insulin E11.9 [place] [address] [address] Jun, Type 2 diabetes mellitus wit hout complication, without long-term current use of insulin E11.9 ; Dysthymia F34.1 ; Lumbar disc disease M51.9 ; Chronic seasonal allergic rhinitis, unspecified trigger J30.2 and BMI 40.0-44.9, adult Z68.41 [place] [address] [address] May, [place] [address] [address] Feb, Dysthymia F34.1 ; Lumbar dis c disease M51.9 and Type 2 diabetes mellitus without complication, without long-term current use of insulin E11.9 [place] [address] [address] Feb, Type 2 diabetes mellitus wit hout complication, without long-term current use of insulin E11.9 [place] [address] [address] December, Seasonal allergic rhinitis, unspecified allergic rhinitis trigger J30.2 [place] [address] [address] Nov, [address] [address] Nov, Dysthymia F34.1 and Pre-diab etes R73.03 [place] [address] [place] [id number] [place] [address] Oct, Dysthymia F34.1 [facility] [address] [place] [id number] [place] [id number] 07 Jun, 2016 Varicose veins of both lower extremities with complications I83.893 and Lumbar disc disease M51.9 [facility] [address] [place] [address] Mar, [facility] [address] [address] Oct, [facility] [address] [address] Jun, Insect bite of abdomen, init ial encounter S30.871A and Encounter for immunization Z23 [place] [address] [address] Apr, [place] [address] [address] Apr, 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 ; Lumbar back pain 724.2 ; Pre-diabetes 790.29 and Left knee pain 719.46 [place] [address] [address] Mar, [facility] [address] [address] Mar, Cough 786.2 and Drug-induced nausea and vomiting 787.01 [facility] [address] [place] [address] Mar, [facility] [address] [place] [address] Mar, Elevated glucose 790.29 [facility] [address] [place] [id number] [place] [address] Mar, [facility] [address] [place] [id number] [place] [address] Mar, Elevated glucose 790.29 [facility] [address] [id number] [address] [place] [address] Mar, [facility] [address] [id number] [address] [place] [phone] Mar, Elevated glucose 790.29 and Degenerative arthritis of lumbar spine 721.3 [facility] [address] [id number] [address] [place] [address] Feb, Elevated glucose 790.29 [facility] [address] [id number] [address] [place] [phone] Feb, Lumbar back pain 724.2 [facility] [address] [id number] [address] [place] [address] Feb, Lumbar back pain 724.2 [facility] [address] [id number] [address] [place] [address] Feb, Routine gynecological examin ation V72.31 ; Pap test, as part of routine gynecological examination V76.2 ; Breast cancer screening V76.10 ; Irregular menses 626.4 ; Dysmenorrhea 625.3 and Routine physicl lab exam V72.62 [facility] [address] [id number] [address] [place] [address] Jan, Eustachian tube dysfunction 381.81 [facility] [address] [id number] [address] [place] [phone] Nov, [facility] [address] [id number] [address] [place] [id number] Nov, [facility] [address] [id number] [address] [place] [phone] Sep, [facility] [address] [id number] [address] [place] [phone] Sep, [facility] [address] [id number] [address] [place] [phone] Aug, [facility] [address] [id number] [address] [place] [phone] Aug, [facility] [address] [id number] [address] [place] [phone] Jun, [facility] [address] [id number] [address] [place] [phone] Jun, [facility] [address] [id number] [address] [place] [phone] Jun, [facility] [address] [id number] [address] [place] [phone] Jun, IMMUNIZATIONS No Known Immunizations SOCIAL HISTORY Never Assessed REASON FOR VISIT ERIN ABREU PLAN OF CARE VITAL SIGNS MEDICATIONS Unknown Medications RESULTS No Results PROCEDURES No Known procedures INSTRUCTIONS MEDICATIONS ADMINISTERED No Known Medications MEDICAL (GENERAL) HISTORY Type Description Date Medical History Elevated Insulin Level Medical History Severe Degenerative Arthritis LS Medical History Chronic Back Pain Medical History Prediabetic 6.1 AIC
--- OUTSIDE RECORDS SUMMARY | 2020-02-02 09:53 | XMS REPORT ---
Author Author Aparna RIDLEY Organization [facility] Address [address] [place] [address] Care Team Providers Care Sales Manager Prearranged Funerals Name Role Phone TITA RIDLEY Unavailable PROBLEMS Type Condition ICD9-CM Code OQZ06-CN Code Onset Dates Condition S tatus SNOMED Code Problem Chronic seasonal allergic rhinitis, unspecified trigger J30.2 Active 689321923 Problem BMI 45.0-49.9, adult Z68.42 Active 921288192 Problem Establishing care with new doctor, encounter for Z 76.89 Active 055031321 Problem Cough R05 Active 07642604 Problem Skin tags, multiple acquired L91.8 A ctive 563308937 Problem Toe pain, left M79.675 Active 91379 0839331404 Problem Essential hypertension I10 Active 56932955 Problem Upper respiratory infection with cough and congestion J06.9 Active 80595541 Problem Morbid obesity due to excess calories E66.01 Active 721695686 Problem 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 Active 94612696 Problem Lumbar disc disease M51.9 Active 05636973 Problem Mixed hyperlipidemia E78.2 Active 849817732 Problem Dysthymia F34.1 Active 30354277 Problem Type 2 diabetes mellitus wit hout complication, without long-term current use of insulin E11.9 Active 829523696 Problem Seasonal allergic rhinitis, unspecified allergic rhinitis trigger J30.2 Active 483432099 ALLERGIES No Known Allergies ENCOUNTERS Encounter Location Date Diagnosis [facility] [address] [facility] [id number] [address] [place] [phone] Feb, [facility] [address] [facility] [id number] [address] [place] [phone] December, [facility] [address] [facility] [id number] [address] [place] [address] December, Upper respiratory infection with cough and congestion J06.9 ; Cough R05 ; Skin tags, multiple acquired L91.8 and BMI 45.0-49.9, adult Z68.42 [place] [address] [address] Nov, Mixed hyperlipidemia E78.2 [place] [address] [address] Nov, [place] [address] [address] Nov, Establishing care with tiera guadarrama, encounter [...] lower extremities with complications I83.893 [place] [address] [address] Oct, Chronic seasonal allergic rh initis, unspecified trigger J30.2 ; Cough due to bronchospasm J98.01 and BMI 45.0-49.9, adult Z68.42 [place] [address] [address] Oct, Type 2 diabetes mellitus wit hout complication, without long-term current use of insulin E11.9 [place] [address] [address] Jun, Type 2 diabetes mellitus wit hout complication, without long-term current use of insulin E11.9 ; Dysthymia F34.1 ; Lumbar disc disease M51.9 ; Chronic seasonal allergic rhinitis, unspecified trigger J30.2 and BMI 40.0-44.9, adult Z68.41 [place] [address] [address] May, [place] [address] [address] Feb, Dysthymia F34.1 ; Lumbar dis c disease M51.9 and Type 2 diabetes mellitus without complication, without long-term current use of insulin E11.9 [place] [address] [address] Feb, Type 2 diabetes mellitus wit hout complication, without long-term current use of insulin E11.9 [place] [address] [address] December, Seasonal allergic rhinitis, unspecified allergic rhinitis trigger J30.[address] [address] Nov, [address] [address] Nov, Dysthymia F34.1 and Pre-diab etes R73.03 [place] [address] [address] Oct, Dysthymia F34.[address] [address] Jun, Varicose veins of both lower extremities with complications I83.893 and Lumbar disc disease M51.9 [place] [address] [address] Mar, [place] [address] [address] Oct, [address] [address] Jun, Insect bite of abdomen, init ial encounter S30.871A and Encounter for immunization Z23 [place] [address] [place] [id number] [place] [address] Apr, [place] [address] [address] Apr, 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 ; Lumbar back pain 724.2 ; Pre-diabetes 790.29 and Left knee pain 719.46 [facility] [address] [id number] [address] [place] [phone] Mar, [facility] [address] [id number] [address] [place] [phone] Mar, Cough 786.2 and Drug-induced nausea and vomiting 787.01 [facility] [address] [id number] [address] [place] [phone] Mar, [facility] [address] [id number] [address] [place] [phone] Mar, Elevated glucose 790.29 [facility] [address] [id number] [address] [place] [id number] Mar, [facility] [address] [id number] [address] [place] [phone] Mar, Elevated glucose 790.29 [facility] [address] [id number] [address] [place] [id number] Mar, [facility] [address] [id number] [address] [place] [phone] Mar, Elevated glucose 790.29 and Degenerative arthritis of lumbar spine 721.3 [facility] [address] [id number] [address] [place] [id number] Feb, Elevated glucose 790.29 [facility] [address] [id number] [address] [place] [phone] Feb, Lumbar back pain 724.2 [facility] [address] [id number] [address] [place] [id number] Feb, Lumbar back pain 724.2 [facility] [address] [id number] [address] [place] [phone] Feb, Routine gynecological examin ation V72.31 ; Pap test, as part of routine gynecological examination V76.2 ; Breast cancer screening V76.10 ; Irregular menses 626.4 ; Dysmenorrhea 625.3 and Routine physicl lab exam V72.62 [facility] [address] [id number] [address] [place] [id number] Jan, Eustachian tube dysfunction 381.81 [facility] [address] [id number] [address] [place] [phone] Nov, [facility] [address] [id number] [address] [place] [phone] Nov, [facility] [address] [id number] [address] [place] [id number] Sep, [facility] [address] [id number] [address] [place] [phone] Sep, [facility] [address] [id number] [address] [place] [phone] Aug, [facility] [address] [id number] [address] [place] [phone] Aug, [facility] [address] [id number] [address] [place] [phone] Jun, [facility] [address] [id number] [address] [place] [phone] Jun, [facility] [address] [id number] [address] [place] [phone] Jun, [facility] [address] [id number] [address] [place] [phone] Jun, IMMUNIZATIONS No Known Immunizations SOCIAL HISTORY Never Assessed REASON FOR VISIT BH Med/Diabetes f/u Beatriz ROMO PLAN OF CARE Activity Details Follow Up 3 Months Reason:DM VITAL SIGNS Height 67 in 2017-06-20 Weight 307.4 lbs 2017-06-20 Temperature 98.0 degrees Fahrenheit 2017-06-20 Heart Rate 88 bpm 2017-06-20 Respiratory Rate 20 2017-06-20 BMI 48.14 kg/m2 2017-06-20 Blood pressure systolic 136 mmHg 2017-06-20 Blood pressure diastolic 90 mmHg 2017-06-20 MEDICATIONS Medication Instructions Dosage Frequency Start Date End Date Duration S tatus Glucometer 1 glucometer Test blood sugar (glucocard Active Fluoxetine HCl 20 mg Orally Once a day 1 tablet 24h Active Actos 30 MG Orally Once a day 1 tablet 24h A ctive Flonase 50 MCG/ACT Nasally Once a day 1 spray in each nostril 24h Jun, 30 day(s) Active Lisinopril 5 mg Orally Once a day 1 tablet 24h Jun, 30 day(s) Active Test strips Test Strips Test blood sugar (glucocard) Active Fluoxetine HCl 20 mg Orally Once a day 1 capsule in the morning 24h Jun, 30 day(s) Active Diclofenac sodium 75 mg Orally 2 times a day, pc 1 capsule Active Zyrtec Allergy 10 mg Orally Once a day 1 tablet 24h Jun, 7 December, 30 day(s) Active RESULTS Name Result Date Reference Range A1C (IN HOUSE) 2017-06-20 A1C IN HOUSE 6.1 4.3 - 5.6 % Previous A1c 6.8 Lot [id number] Exp date 02/2019 PROCEDURES Procedure Date Ordered Result Body Site GLYCATED HEMOGLOBIN TEST Jun 20, 2017 INSTRUCTIONS MEDICATIONS ADMINISTERED No Known Medications MEDICAL (GENERAL) HISTORY Type Description Date Medical History Elevated Insulin Level Medical History Severe Degenerative Arthritis LS Medical History Chronic Back Pain Medical History Prediabetic 6.1 AIC
--- OUTSIDE RECORDS SUMMARY | 2020-02-02 09:53 | XMS REPORT ---
Author Author Aparna ESQUEDA [facility] Address [address] [place] [address] Care Team Providers Care Conveyor Console Operator Name Role Phone MAGALI ESQUEDA Unavailable PROBLEMS Type Condition ICD9-CM Code [id number]-DZ Code Onset Dates Condition S tatus SNOMED Code Problem Toe pain, left M79.675 Active 51189 1254884701 Problem BMI 45.0-49.9, adult Z68.42 Active 308504727 Problem Morbid obesity due to excess calories E66.01 Active 812511417 Problem Cough R05 Active 03478937 Problem Skin tags, multiple acquired L91.8 A ctive 400419825 Problem Hammertoe of left foot M20.42 Active 651308843 Problem Establishing care with new doctor, encounter for Z 76.89 Active 727649458 Problem Upper respiratory infection with cough and congestion J06.9 Active 95644737 Problem Hammertoe of right foot M20.41 Active 710068861 Problem Mixed hyperlipidemia E78.2 Active 577923000 Problem Type 2 diabetes mellitus wit hout complication, without long-term current use of insulin E11.9 Active 864880194 Problem Dysthymia F34.1 Active 19135239 Problem Seasonal allergic rhinitis, unspecified allergic rhinitis trigger J30.2 Active 158114199 Problem 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 Active 99146059 Problem Chronic seasonal allergic rhinitis, unspecified trigger J30.2 Active 303288462 Problem Lumbar disc disease M51.9 Active 47358602 Problem Essential hypertension I10 Active 19342999 ALLERGIES No Known Allergies ENCOUNTERS Encounter Location Date Diagnosis [facility] [address] [facility] [place] [id number] [address] [place] [address] Feb, 2018 [place] of foot L84 ; Hammertoe of right foot M20.41 ; Hammertoe of left foot M20.42 and Type 2 diabetes mellitus with diabetic neuropathy, unspecified whether detention insulin use E11.40 [place] [address] [address] Feb, [place] [address] [address] Jan, [place] [address] [place] [id number] [place] [address] Jan, Peripheral edema R60.9 ; Ess ential hypertension I10 and BMI 50.0- 59.9, adult Z68.43 [place] [address] [address] December, [place] [address] [address] December, [place] [address] [address] December, Upper respiratory infection with cough and congestion J06.9 ; Cough R05 ; Skin tags, multiple acquired L91.8 and BMI 45.0-49.9, adult Z68.42 [place] [address] [address] Nov, Mixed hyperlipidemia E78.2 [place] [address] [place] [id number] [place] [address] Nov, [place] [address] [address] Nov, Establishing care with tiera guadarrama, encounter [...] of both lower extremities with complications I83.893 [place] [address] [address] Oct, Chronic seasonal allergic rh initis, unspecified trigger J30.2 ; Cough due to bronchospasm J98.01 and BMI 45.0-49.9, adult Z68.42 [place] [address] [address] Oct, Type 2 diabetes mellitus wit hout complication, without long-term current use of insulin E11.9 [place] [address] [address] Jun, Type 2 diabetes mellitus wit hout complication, without long-term current use of insulin E11.9 ; Dysthymia F34.1 ; Lumbar disc disease M51.9 ; Chronic seasonal allergic rhinitis, unspecified trigger J30.2 and BMI 40.0-44.9, adult Z68.[address] [address] May, [address] [address] Feb, Dysthymia F34.1 ; Lumbar dis c disease M51.9 and Type 2 diabetes mellitus without complication, without long-term current use of insulin E11.9 [place] [address] [address] Feb, Type 2 diabetes mellitus wit hout complication, without long-term current use of insulin E11.9 [place] [address] [address] December, Seasonal allergic rhinitis, unspecified allergic rhinitis trigger J30.2 [place] [address] [address] Nov, [address] [address] Nov, Dysthymia F34.1 and Pre-diab etes R73.[address] [address] Oct, Dysthymia F34.1 [facility] [address] [place] [id number] [place] [address] Jun, Varicose veins of both lower extremities with complications I83.893 and Lumbar disc disease M51.9 [facility] [address] [place] [id number] [place] [address] Mar, [facility] [address] [address] Oct, [facility] [address] [address] Jun, Insect bite of abdomen, init ial encounter S30.871A and Encounter for immunization Z23 [facility] [address] [place] [id number] [place] [address] Apr, [place] [address] [address] Apr, 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 ; Lumbar back pain 724.2 ; Pre-diabetes 790.29 and Left knee pain 719.46 [facility] [address] [address] Mar, [facility] [address] [place] [id number] [place] [address] Mar, Cough 786.2 and Drug-induced nausea and vomiting 787.01 [facility] [address] [place] [id number] [place] [address] Mar, [facility] [address] [place] [id number] [place] [address] Mar, Elevated glucose 790.29 [facility] [address] [place] [id number] [place] [address] Mar, [facility] [address] [place] [id number] [place] [address] Mar, Elevated glucose 790.29 [facility] [address] [id number] [address] [place] [address] Mar, [facility] [address] [id number] [address] [place] [address] Mar, Elevated glucose 790.29 and Degenerative arthritis of lumbar spine 721.3 [facility] [address] [id number] [address] [place] [address] Feb, Elevated glucose 790.29 [facility] [address] [id number] [address] [place] [address] Feb, Lumbar back pain 724.2 [facility] [address] [id number] [address] [place] [address] Feb, Lumbar back pain 724.2 [facility] [address] [id number] [address] [place] [address] Feb, Routine gynecological examin ation V72.31 ; Pap test, as part of routine gynecological examination V76.2 ; Breast cancer screening V76.10 ; Irregular menses 626.4 ; Dysmenorrhea 625.3 and Routine physicl lab exam V72.62 [facility] [address] [id number] [address] [place] [address] Jan, Eustachian tube dysfunction 381.81 [facility] [address] [id number] [address] [place] [address] Nov, [facility] [address] [id number] [address] [place] [address] Nov, [facility] [address] [id number] [address] [place] [address] Sep, [facility] [address] [id number] [address] [place] [address] Sep, [facility] [address] [id number] [address] [place] [address] Aug, [facility] [address] [id number] [address] [place] [address] Aug, [facility] [address] [facility] [place] [id number] [address] [place] [address] Jun, [facility] [address] [facility] [place] [id number] [address] [place] [address] Jun, [facility] [address] [facility] [place] [id number] [address] [place] [address] Jun, [facility] [address] [facility] [place] [id number] [address] [place] [address] Jun, IMMUNIZATIONS No Known Immunizations SOCIAL HISTORY Never Assessed REASON FOR VISIT Transition of Care from [facility]. Pt would like something other than fluoxetine - s he feels that it is not providing relief of her symptoms. Explained moa of SSRI and patient is open to discussing a new medication that would help manage her a nxiety. Toe on left foot has lost sensation since she began treating sore with otc medication. Pt would like to have varicose veins examined on right leg-comp lains of burning. Not monitoring blood glucose levels. [email or web address] PLAN OF CARE Activity Details Follow Up 3 Months, prn Reason:DM Future/Pending Procedure ROUTINE VENIPUNCTURE VITAL SIGNS Height 67 in 2017-11-28 Weight 312.8 lbs 2017-11-28 Temperature 98.9 degrees Fahrenheit 2017-11-28 Heart Rate 88 bpm 2017-11-28 Respiratory Rate 20 2017-11-28 BMI 48.99 kg/m2 2017-11-28 Blood pressure systolic 140 mmHg 2017-11-28 Blood pressure diastolic 88 mmHg 2017-11-28 MEDICATIONS Medication Instructions Dosage Frequency Start Date End Date Duration S tatus Flonase 50 MCG/ACT Nasally Once a day 1 spray in each nostril 24h Jun, Active Lisinopril 10 mg Orally Once a day 1 tablet 24h Nov, 30 day(s) Active Glucometer 1 glucometer Test blood sugar (glucocard Active Actos 30 MG Orally Once a day TAKE ONE TABLET BY MOUTH ONCE DAILY 24h 30 days Active Zyrtec Allergy 10 mg Orally Once a day 1 tablet 24h Jun, 7 M , 2017 Active Zoloft 25 MG Orally Once a day 1 tablet 24h Nov, 30 day(s) Active Test strips Test Strips Test blood sugar (glucocard) Active RESULTS No Results PROCEDURES Procedure Date Ordered Result Body Site Hemoglobin Test Send Out 0 dollar November 28, 2017 COMPREHEN METABOLIC PANEL November 28, 2017 LIPID PANEL November 28, 2017 COMPLETE CBC W/AUTO DIFF WBC November 28, 2017 VENIPUNCT, ROUTINE* November 28, 2017 ASSAY THYROID STIM HORMONE November 28, 2017 INSTRUCTIONS MEDICATIONS ADMINISTERED No Known Medications MEDICAL (GENERAL) HISTORY Type Description Date Medical History Elevated Insulin Level Medical History Severe Degenerative Arthritis LS Medical History Chronic Back Pain Medical History Prediabetic 6.1 A[facility]
--- OUTSIDE RECORDS SUMMARY | 2020-02-02 09:53 | XMS REPORT ---
Author Author Aparna ESQUEDA [facility] Address [address] [place] [address] Care Team Providers Care Dairy Worker Name Role Phone MAGALI ESQUEDA Unavailable PROBLEMS Type Condition ICD9-CM Code [id number] Code Onset Dates Condition S tatus SNOMED Code Problem Toe pain, left M79.675 Active 13596 5237906896 Problem BMI 45.0-49.9, adult Z68.42 Active 228467885 Problem Morbid obesity due to excess calories E66.01 Active 450110093 Problem Cough R05 Active 31693839 Problem Skin tags, multiple acquired L91.8 A ctive 049942543 Problem Hammertoe of left foot M20.42 Active 130622503 Problem Establishing care with new doctor, encounter for Z 76.89 Active 492377220 Problem Upper respiratory infection with cough and congestion J06.9 Active 70871098 Problem Hammertoe of right foot M20.41 Active 227886751 Problem Mixed hyperlipidemia E78.2 Active 717360636 Problem Type 2 diabetes mellitus wit hout complication, without long-term current use of insulin E11.9 Active 844790820 Problem Dysthymia F34.1 Active 44348960 Problem Seasonal allergic rhinitis, unspecified allergic rhinitis trigger J30.2 Active 524123566 Problem 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 Active 93277980 Problem Chronic seasonal allergic rhinitis, unspecified trigger J30.2 Active 311808861 Problem Lumbar disc disease M51.9 Active 08685422 Problem Essential hypertension I10 Active 65737943 ALLERGIES No Known Allergies ENCOUNTERS Encounter Location Date Diagnosis [facility] [address] [facility] [id number] [address] [place] [address] Feb, 2018 [place] of foot L84 ; Hammertoe of right foot M20.41 ; Hammertoe of left foot M20.42 and Type 2 diabetes mellitus with diabetic neuropathy, unspecified whether prison insulin use E11.40 [place] [address] [place] [address] [address] Feb, [place] [address] [place] [address] [address] Jan, [place] [address] [place] [id number] [place] [address] Jan, Peripheral edema R60.9 ; Ess ential hypertension I10 and BMI 50.0- 59.9, adult Z68.43 [place] [address] [place] [address] [address] December, [place] [address] [place] [address] [address] December, [place] [address] [place] [address] [address] December, Upper respiratory infection with cough and congestion J06.9 ; Cough R05 ; Skin tags, multiple acquired L91.8 and BMI 45.0-49.9, adult Z68.42 [place] [address] [place] [address] [address] Nov, Mixed hyperlipidemia E78.2 [place] [address] [place] [id number] [place] [address] Nov, [place] [address] [place] [address] [address] Nov, Establishing care with tiera guadarrama, encounter [...] of both lower extremities with complications I83.893 [place] [address] [place] [address] [address] Oct, Chronic seasonal allergic rh initis, unspecified trigger J30.2 ; Cough due to bronchospasm J98.01 and BMI 45.0-49.9, adult Z68.42 [place] [address] [place] [address] [address] Oct, Type 2 diabetes mellitus wit hout complication, without long-term current use of insulin E11.9 [place] [address] [place] [address] [address] Jun, Type 2 diabetes mellitus wit hout complication, without long-term current use of insulin E11.9 ; Dysthymia F34.1 ; Lumbar disc disease M51.9 ; Chronic seasonal allergic rhinitis, unspecified trigger J30.2 and BMI 40.0-44.9, adult Z68.[address] [address] May, [address] [address] Feb, Dysthymia F34.1 ; Lumbar dis c disease M51.9 and Type 2 diabetes mellitus without complication, without long-term current use of insulin E11.9 [place] [address] [place] [address] [address] Feb, Type 2 diabetes mellitus wit hout complication, without long-term current use of insulin E11.9 [place] [address] [place] [address] [address] December, Seasonal allergic rhinitis, unspecified allergic rhinitis trigger J30.2 [place] [address] [place] [address] [address] Nov, [address] [address] Nov, Dysthymia F34.1 and Pre-diab etes R73.[address] [address] Oct, Dysthymia F34.1 [facility] [address] [place] [id number] [place] [address] Jun, Varicose veins of both lower extremities with complications I83.893 and Lumbar disc disease M51.9 [facility] [address] [place] [id number] [place] [address] Mar, [facility] [address] [place] [address] [address] Oct, [facility] [address] [place] [address] [address] Jun, Insect bite of abdomen, init ial encounter S30.871A and Encounter for immunization Z23 [facility] [address] [place] [id number] [place] [address] Apr, [place] [address] [place] [address] Apr, 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 ; Lumbar back pain 724.2 ; Pre-diabetes 790.29 and Left knee pain 719.46 [facility] [address] [place] [address] [address] Mar, [facility] [address] [place] [id number] [place] [address] Mar, Cough 786.2 and Drug-induced nausea and vomiting 787.01 [facility] [address] [place] [id number] [place] [address] Mar, [facility] [address] [place] [id number] [place] [address] Mar, Elevated glucose 790.29 [facility] [address] [place] [id number] [place] [address] Mar, [facility] [address] [place] [id number] [place] [address] Mar, Elevated glucose 790.29 [facility] [address] [id number] [address] [place] [address] Mar, [facility] [address] [id number] [address] [place] [address] Mar, Elevated glucose 790.29 and Degenerative arthritis of lumbar spine 721.3 [facility] [address] [id number] [address] [place] [address] Feb, Elevated glucose 790.29 [facility] [address] [id number] [address] [place] [address] Feb, Lumbar back pain 724.2 [facility] [address] [id number] [address] [place] [address] Feb, Lumbar back pain 724.2 [facility] [address] [id number] [address] [place] [address] Feb, Routine gynecological examin ation V72.31 ; Pap test, as part of routine gynecological examination V76.2 ; Breast cancer screening V76.10 ; Irregular menses 626.4 ; Dysmenorrhea 625.3 and Routine physicl lab exam V72.62 [facility] [address] [id number] [address] [place] [address] Jan, Eustachian tube dysfunction 381.81 [facility] [address] [id number] [address] [place] [address] Nov, [facility] [address] [id number] [address] [place] [address] Nov, [facility] [address] [id number] [address] [place] [address] Sep, [facility] [address] [id number] [address] [place] [address] Sep, [facility] [address] [id number] [address] [place] [phone] Aug, [facility] [address] [id number] [address] [place] [phone] Aug, [facility] [address] [facility] [id number] [address] [place] [address] Jun, [facility] [address] [facility] [id number] [address] [place] [phone] Jun, [facility] [address] [facility] [id number] [address] [place] [phone] Jun, [facility] [address] [facility] [id number] [address] [place] [phone] Jun, IMMUNIZATIONS No Known Immunizations SOCIAL HISTORY Never Assessed REASON FOR VISIT Cough--tcuppettRN, -Cough, congestion, sore throat, and drainage. Has had these symptoms since October when she was see in clinic. Was given steroids which improv ed symptoms some, but now is worsening PLAN OF CARE Activity Details Follow Up 1 Week, prn Reason:if sympto ms worsening or not improving VITAL SIGNS Height 67 in 2017-12-12 Weight 313.0 lbs 2017-12-12 Temperature 98.9 degrees Fahrenheit 2017-12-12 Heart Rate 96 bpm 2017-12-12 Respiratory Rate 20 2017-12-12 BMI 49.02 kg/m2 2017-12-12 Blood pressure systolic 122 mmHg 2017-12-12 Blood pressure diastolic 70 mmHg 2017-12-12 MEDICATIONS Medication Instructions Dosage Frequency Start Date End Date Duration S tatus Lipitor 40 mg Orally Once a day 1 tablet 24h Nov, 30 day(s) Not-Taking Albuterol Sulfate 108 (90 Base) MCG/ACT Inhalation every 8 h ours, PRN 2 puffs as needed December, 30 days Active Zyrtec Allergy 10 mg Orally Once a day 1 tablet 24h Jun, 7 M 2017 Active Test strips Test Strips Test blood sugar (glucocard) Active Zoloft 25 MG Orally Once a day 1 tablet 24h Nov, 30 day(s) Active Benzonatate 200 mg Orally Three times a day 1 capsule 8h December, Jan, 30 day(s) Active Glucometer 1 glucometer Test blood sugar (glucocard Active Actos 30 MG Orally Once a day TAKE ONE TABLET BY MOUTH ONCE DAILY 24h 30 days Active Lisinopril 10 mg Orally Once a day 1 tablet 24h 18 Nov, 2017 30 day(s) Active GuaiFENesin ER 600 MG Orally every 12 hrs 1 tablet as needed 12h December, Jan, 30 days Active Flonase 50 MCG/ACT Nasally Once a day 1 spray in each nostril 24h Jun, Not-Taking Flonase 50 MCG/ACT Nasally twice a day 1 spray in each nostril 12h December, 30 day(s) Active Azithromycin 250 MG Orally Once a day 2 tablets on the fi rst day, then 1 tablet daily for 4 days 24h December, December, 5 day(s) Active RESULTS No Results PROCEDURES No Known procedures INSTRUCTIONS MEDICATIONS ADMINISTERED No Known Medications MEDICAL (GENERAL) HISTORY Type Description Date Medical History Elevated Insulin Level Medical History Severe Degenerative Arthritis LS Medical History Chronic Back Pain Medical History Prediabetic 6.1 AIC
--- OUTSIDE RECORDS SUMMARY | 2020-02-02 09:53 | XMS REPORT ---
Author Author Aparna ESQUEDA [facility] Address [address] [place] [address] Care Team Providers Care Director Zone Name Role Phone MAGALI ESQUEDA Unavailable PROBLEMS Type Condition ICD9-CM Code AOX19-RY Code Onset Dates Condition S tatus SNOMED Code Problem Toe pain, left M79.675 Active 25861 3464275357 Problem BMI 45.0-49.9, adult Z68.42 Active 120903878 Problem Morbid obesity due to excess calories E66.01 Active 615258636 Problem Cough R05 Active 99662415 Problem Skin tags, multiple acquired L91.8 A ctive 998997148 Problem Hammertoe of left foot M20.42 Active 966084655 Problem Establishing care with new doctor, encounter for Z 76.89 Active 576169656 Problem Upper respiratory infection with cough and congestion J06.9 Active 27331760 Problem Hammertoe of right foot M20.41 Active 070445355 Problem Mixed hyperlipidemia E78.2 Active 720012163 Problem Type 2 diabetes mellitus wit hout complication, without long-term current use of insulin E11.9 Active 075867739 Problem Dysthymia F34.1 Active 99030815 Problem Seasonal allergic rhinitis, unspecified allergic rhinitis trigger J30.2 Active 256116627 Problem 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 Active 69981034 Problem Chronic seasonal allergic rhinitis, unspecified trigger J30.2 Active 999959507 Problem Lumbar disc disease M51.9 Active 16398527 Problem Essential hypertension I10 Active 60357259 ALLERGIES No Information ENCOUNTERS Encounter Location Date Diagnosis [facility] [address] [facility] [id number] [address] [place] [address] Feb, 2018 [place] of foot L84 ; Hammertoe of right foot M20.41 ; Hammertoe of left foot M20.42 and Type 2 diabetes mellitus with diabetic neuropathy, 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 [place] [address] [address] Feb, [place] [address] [address] Jan, [place] [address] [place] [id number] [place] [address] Jan, Peripheral edema R60.9 ; Ess ential hypertension I10 and BMI 50.0- 59.9, adult Z68.43 [place] [address] [address] December, [place] [address] [address] December, [place] [address] [address] December, Upper respiratory infection with cough and congestion J06.9 ; Cough R05 ; Skin tags, multiple acquired L91.8 and BMI 45.0-49.9, adult Z68.42 [place] [address] [address] Nov, Mixed hyperlipidemia E78.2 [place] [address] [place] [id number] [place] [address] Nov, [place] [address] [address] Nov, Establishing care with tiera guadarrama, encounter [...] of both lower extremities with complications I83.893 [place] [address] [address] Oct, Chronic seasonal allergic rh initis, unspecified trigger J30.2 ; Cough due to bronchospasm J98.01 and BMI 45.0-49.9, adult Z68.42 [place] [address] [address] Oct, Type 2 diabetes mellitus wit hout complication, without long-term current use of insulin E11.9 [place] [address] [address] Jun, Type 2 diabetes mellitus wit hout complication, without long-term current use of insulin E11.9 ; Dysthymia F34.1 ; Lumbar disc disease M51.9 ; Chronic seasonal allergic rhinitis, unspecified trigger J30.2 and BMI 40.0-44.9, adult Z68.41 [place] [address] [address] May, [place] [address] [address] Feb, Dysthymia F34.1 ; Lumbar dis c disease M51.9 and Type 2 diabetes mellitus without complication, without long-term current use of insulin E11.9 [place] [address] [address] Feb, Type 2 diabetes mellitus wit hout complication, without long-term current use of insulin E11.9 [place] [address] [address] December, Seasonal allergic rhinitis, unspecified allergic rhinitis trigger J30.2 [place] [address] [address] Nov, [address] [address] Nov, Dysthymia F34.1 and Pre-diab etes R73.03 [place] [address] [place] [id number] [place] [address] Oct, Dysthymia F34.1 [facility] [address] [place] [id number] [address] [place] [address] 07 Jun, 2016 Varicose veins of both lower extremities with complications I83.893 and Lumbar disc disease M51.9 [facility] [id number] [place] [address] Mar, [facility] [address] [address] Oct, [facility] [address] [address] Jun, Insect bite of abdomen, init ial encounter S30.871A and Encounter for immunization Z23 [place] [address] [address] Apr, [place] [address] [address] Apr, 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 ; Lumbar back pain 724.2 ; Pre-diabetes 790.29 and Left knee pain 719.46 [place] [address] [address] Mar, [facility] [address] [address] Mar, Cough 786.2 and Drug-induced nausea and vomiting 787.01 [facility] [address] [place] [address] Mar, [facility] [address] [place] [address] Mar, Elevated glucose 790.29 [facility] [address] [place] [id number] [address] [place] [address] Mar, [facility] [address] [place] [id number] [address] [place] [address] Mar, Elevated glucose 790.29 [facility] [address] [id number] [address] [place] [address] Mar, [facility] [address] [id number] [address] [place] [address] Mar, Elevated glucose 790.29 and Degenerative arthritis of lumbar spine 721.3 [facility] [address] [id number] [address] [place] [address] Feb, Elevated glucose 790.29 [facility] [address] [id number] [address] [place] [address] Feb, Lumbar back pain 724.2 [facility] [address] [id number] [address] [place] [address] Feb, Lumbar back pain 724.2 [facility] [address] [id number] [address] [place] [address] Feb, Routine gynecological examin ation V72.31 ; Pap test, as part of routine gynecological examination V76.2 ; Breast cancer screening V76.10 ; Irregular menses 626.4 ; Dysmenorrhea 625.3 and Routine physicl lab exam V72.62 [facility] [address] [id number] [address] [place] [address] Jan, Eustachian tube dysfunction 381.81 [facility] [address] [id number] [address] [place] [address] Nov, [facility] [address] [id number] [address] [place] [address] Nov, [facility] [address] [id number] [address] [place] [address] Sep, [facility] [address] [id number] [address] [place] [phone] Sep, [facility] [address] [id number] [address] [place] [address] Aug, [facility] [address] [id number] [address] [place] [address] Aug, [facility] [address] [facility] [id number] [address] [place] [id number] Jun, [facility] [address] [facility] [id number] [address] [place] [phone] Jun, [facility] [address] [facility] [id number] [address] [place] [id number] Jun, [facility] [address] [facility] [id number] [address] [place] [address] Jun, IMMUNIZATIONS No Known Immunizations SOCIAL HISTORY Never Assessed REASON FOR VISIT PLAN OF CARE VITAL SIGNS MEDICATIONS Medication Instructions Dosage Frequency Start Date End Date Duration S tatus Doxy-Caps 100 mg Orally twice a day 1 capsule 12h December, 2 December, 10 day(s) Active RESULTS No Results PROCEDURES No Known procedures INSTRUCTIONS MEDICATIONS ADMINISTERED No Known Medications MEDICAL (GENERAL) HISTORY Type Description Date Medical History Elevated Insulin Level Medical History Severe Degenerative Arthritis LS Medical History Chronic Back Pain Medical History Prediabetic 6.1 AIC
--- OUTSIDE RECORDS SUMMARY | 2020-02-02 09:53 | XMS REPORT ---
Author Author Aparna RIDLEY Organization [facility] [place] Address [address] [place] [address] Care Team Providers Care Luggage Repairer Name Role Phone TITA RIDLEY Unavailable PROBLEMS Type Condition ICD9-CM Code BKB69-SN Code Onset Dates Condition S tatus SNOMED Code Problem Chronic seasonal allergic rhinitis, unspecified trigger J30.2 Active 570952556 Problem BMI 45.0-49.9, adult Z68.42 Active 575318878 Problem Establishing care with new doctor, encounter for Z 76.89 Active 884250273 Problem Cough R05 Active 94683493 Problem Skin tags, multiple acquired L91.8 A ctive 032041933 Problem Toe pain, left M79.675 Active 69776 1759305290 Problem Essential hypertension I10 Active 64916235 Problem Upper respiratory infection with cough and congestion J06.9 Active 22275435 Problem Morbid obesity due to excess calories E66.01 Active 524699123 Problem 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 Active 39319771 Problem Lumbar disc disease M51.9 Active 75183252 Problem Mixed hyperlipidemia E78.2 Active 979518728 Problem Dysthymia F34.1 Active 56418926 Problem Type 2 diabetes mellitus wit hout complication, without long-term current use of insulin E11.9 Active 894561524 Problem Seasonal allergic rhinitis, unspecified allergic rhinitis trigger J30.2 Active 408109708 ALLERGIES No Information ENCOUNTERS Encounter Location Date Diagnosis [facility] [place] [address] [facility] [id number] [address] [place] [address] Feb, [facility] [place] [address] [facility] [id number] [address] [place] [address] Feb, [facility] [place] [address] [facility] [id number] [address] [place] [address] Feb, [facility] [place] [address] [address] Jan, [place] [address] [address] Jan, Peripheral edema R60.9 ; Ess ential hypertension I10 and BMI 50.0- 59.9, adult Z68.[address] [address] December, [place] [address] [address] December, [address] [address] December, Upper respiratory infection with cough and congestion J06.9 ; Cough R05 ; Skin tags, multiple acquired L91.8 and BMI 45.0-49.9, adult Z68.[address] [address] Nov, Mixed hyperlipidemia E78.[address] [address] Nov, [address] [address] Nov, Establishing care with tiera guadarrama, encounter [...] of both lower extremities with complications I83.[address] [address] Oct, Chronic seasonal allergic rh initis, unspecified trigger J30.2 ; Cough due to bronchospasm J98.01 and BMI 45.0-49.9, adult Z68.42 [place] [address] [facility] [id number] [address] [place] [address] 09 Oct, 2017 Type 2 diabetes mellitus wit hout complication, without long-term current use of insulin E11.9 [place] [address] [facility] [id number] [address] [place] [address] 08 Jun, 2017 Type 2 diabetes mellitus wit hout complication, without long-term current use of insulin E11.9 ; Dysthymia F34.1 ; Lumbar disc disease M51.9 ; Chronic seasonal allergic rhinitis, unspecified trigger J30.2 and BMI 40.0-44.9, adult Z68.41 [place] [address] [facility] [id number] [address] [place] [id number] 06 May, 2017 [place] [address] [facility] [id number] [address] [place] [address] Feb, Dysthymia F34.1 ; Lumbar dis c disease M51.9 and Type 2 diabetes mellitus without complication, without long-term current use of insulin E11.9 [place] [address] [facility] [id number] [address] [place] [phone] Feb, Type 2 diabetes mellitus wit hout complication, without long-term current use of insulin E11.9 [place] [address] [facility] [id number] [address] [place] [address] December, Seasonal allergic rhinitis, unspecified allergic rhinitis trigger J30.2 [place] [address] [facility] [id number] [address] [place] [address] Nov, [place] [address] [facility] [id number] [address] [place] [address] Nov, Dysthymia F34.1 and Pre-diab etes R73.03 [place] [address] [facility] [id number] [address] [place] [address] Oct, Dysthymia F34.1 [place] [address] [facility] [id number] [address] [place] [address] 07 Jun, 2016 Varicose veins of both lower extremities with complications I83.893 and Lumbar disc disease M51.9 [facility] [place] [address] [id number] [address] [place] [id number] Mar, [facility] [place] [address] [facility] [id number] [address] [place] [address] Oct, [facility] [place] [address] [facility] [id number] [address] [place] [address] Jun, Insect bite of abdomen, init ial encounter S30.871A and Encounter for immunization Z23 [facility] [place] [address] [facility] [id number] [address] [place] [address] Apr, [facility] [place] [address] [facility] [id number] [address] [place] [address] Apr, 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 ; Lumbar back pain 724.2 ; Pre-diabetes 790.29 and Left knee pain 719.46 [facility] [place] [address] [facility] [id number] [address] [place] [address] Mar, [facility] [place] [address] [facility] [id number] [address] [place] [address] Mar, Cough 786.2 and Drug-induced nausea and vomiting 787.01 [facility] [place] [address] [facility] [id number] [address] [place] [phone] Mar, [facility] [place] [address] [facility] [id number] [address] [place] [address] Mar, Elevated glucose 790.29 [facility] [place] [address] [facility] [id number] [address] [place] [address] Mar, [facility] [place] [address] [facility] [id number] [address] [place] [address] Mar, Elevated glucose 790.29 [facility] [place] [address] [facility] [id number] [address] [place] [phone] Mar, [facility] [place] [address] [place] [id number] [address] [place] [address] 07 Mar, 2015 Elevated glucose 790.29 and Degenerative arthritis of lumbar spine 721.3 [facility] [place] [address] [id number] [address] [place] [address] Feb, Elevated glucose 790.29 [facility] [place] [address] [id number] [address] [place] [address] Feb, Lumbar back pain 724.2 [facility] [place] [address] [id number] [address] [place] [address] 16 Feb, 2015 Lumbar back pain 724.2 [facility] [place] [address] [id number] [address] [place] [address] 14 Feb, 2015 Routine gynecological examin ation V72.31 ; Pap test, as part of routine gynecological examination V76.2 ; Breast cancer screening V76.10 ; Irregular menses 626.4 ; Dysmenorrhea 625.3 and Routine physicl lab exam V72.62 [facility] [place] [address] [id number] [address] [place] [address] Jan, Eustachian tube dysfunction 381.81 [facility] [place] [address] [id number] [address] [place] [address] Nov, [facility] [place] [address] [facility] [id number] [address] [place] [address] Nov, [facility] [place] [address] [id number] [address] [place] [phone] Sep, [facility] [place] [address] [id number] [address] [place] [phone] Sep, [facility] [place] [address] [id number] [address] [place] [phone] Aug, [facility] [place] [address] [id number] [address] [place] [phone] Aug, [facility] [place] [address] [facility] [id number] [address] [place] [phone] Jun, [facility] [place] [address] [facility] [id number] [address] [place] [phone] Jun, [facility] [place] [address] [facility] [id number] [address] [place] [phone] Jun, [facility] [place] [address] [facility] [id number] [address] [place] [phone] Jun, IMMUNIZATIONS No Known Immunizations SOCIAL HISTORY Never Assessed REASON FOR VISIT Refill request PLAN OF CARE VITAL SIGNS MEDICATIONS Medication Instructions Dosage Frequency Start Date End Date Duration S tatus Actos 30 MG TAKE ONE TABLET BY MOUTH ONCE DAILY 30 Active Lisinopril 5 mg Orally Once a day 1 tablet 24h Jun, 30 day(s) Active RESULTS No Results PROCEDURES No Known procedures INSTRUCTIONS MEDICATIONS ADMINISTERED No Known Medications MEDICAL (GENERAL) HISTORY Type Description Date Medical History Elevated Insulin Level Medical History Severe Degenerative Arthritis LS Medical History Chronic Back Pain Medical History Prediabetic 6.1 AIC
--- OUTSIDE RECORDS SUMMARY | 2020-02-02 09:53 | XMS REPORT ---
Author Author Aparna ESQUEDA [facility] Address [address] [place] [address] Care Team Providers Care Hazmat Cdl A Driver Name Role Phone MAGALI ESQUEDA Unavailable PROBLEMS Type Condition ICD9-CM Code WHT64-CO Code Onset Dates Condition S tatus SNOMED Code Problem Toe pain, left M79.675 Active 69169 [id number] Problem BMI 45.0-49.9, adult Z68.42 Active 874283846 Problem Morbid obesity due to excess calories E66.01 Active 571709084 Problem Cough R05 Active 87451926 Problem Skin tags, multiple acquired L91.8 A ctive 192985618 Problem Hammertoe of left foot M20.42 Active 946644468 Problem Establishing care with new doctor, encounter for Z 76.89 Active 827080588 Problem Upper respiratory infection with cough and congestion J06.9 Active 61010288 Problem Hammertoe of right foot M20.41 Active 286734908 Problem Mixed hyperlipidemia E78.2 Active 176346464 Problem Type 2 diabetes mellitus wit hout complication, without long-term current use of insulin E11.9 Active 555002359 Problem Dysthymia F34.1 Active 34268588 Problem Seasonal allergic rhinitis, unspecified allergic rhinitis trigger J30.2 Active 793008363 Problem 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 Active 32512008 Problem Chronic seasonal allergic rhinitis, unspecified trigger J30.2 Active 609742570 Problem Lumbar disc disease M51.9 Active 50969142 Problem Essential hypertension I10 Active 56589815 ALLERGIES No Information ENCOUNTERS Encounter Location Date Diagnosis [facility] [address] [facility] [id number] [address] [place] [address] Feb, 2018 [place] of foot L84 ; Hammertoe of right foot M20.41 ; Hammertoe of left foot M20.42 and Type 2 diabetes mellitus with diabetic neuropathy, unspecified 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 continuous 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 insulin 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 E11.40 [place] [address] [address] Feb, [place] [address] [address] Jan, [place] [address] [place] [id number] [place] [address] Jan, Peripheral edema R60.9 ; Ess ential hypertension I10 and BMI 50.0- 59.9, adult Z68.43 [place] [address] [address] December, [place] [address] [address] December, [place] [address] [address] December, Upper respiratory infection with cough and congestion J06.9 ; Cough R05 ; Skin tags, multiple acquired L91.8 and BMI 45.0-49.9, adult Z68.42 [place] [address] [address] Nov, Mixed hyperlipidemia E78.2 [place] [address] [place] [id number] [place] [address] Nov, [place] [address] [address] Nov, Establishing care with tiera guadarrama, encounter [...] of both lower extremities with complications I83.893 [place] [address] [address] Oct, Chronic seasonal allergic rh initis, unspecified trigger J30.2 ; Cough due to bronchospasm J98.01 and BMI 45.0-49.9, adult Z68.42 [place] [address] [address] Oct, Type 2 diabetes mellitus wit hout complication, without long-term current use of insulin E11.9 [place] [address] [address] Jun, Type 2 diabetes mellitus wit hout complication, without long-term current use of insulin E11.9 ; Dysthymia F34.1 ; Lumbar disc disease M51.9 ; Chronic seasonal allergic rhinitis, unspecified trigger J30.2 and BMI 40.0-44.9, adult Z68.41 [place] [address] [address] May, [place] [address] [address] Feb, Dysthymia F34.1 ; Lumbar dis c disease M51.9 and Type 2 diabetes mellitus without complication, without long-term current use of insulin E11.9 [place] [address] [address] Feb, Type 2 diabetes mellitus wit hout complication, without long-term current use of insulin E11.9 [place] [address] [address] December, Seasonal allergic rhinitis, unspecified allergic rhinitis trigger J30.2 [place] [address] [address] Nov, [address] [address] Nov, Dysthymia F34.1 and Pre-diab etes R73.03 [place] [address] [place] [id number] [place] [address] Oct, Dysthymia F34.1 [facility] [address] [place] [id number] [address] [place] [address] 07 Jun, 2016 Varicose veins of both lower extremities with complications I83.893 and Lumbar disc disease M51.9 [facility] [id number] [place] [address] Mar, [facility] [address] [address] Oct, [facility] [address] [address] Jun, Insect bite of abdomen, init ial encounter S30.871A and Encounter for immunization Z23 [place] [address] [address] Apr, [place] [address] [address] Apr, 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 ; Lumbar back pain 724.2 ; Pre-diabetes 790.29 and Left knee pain 719.46 [place] [address] [address] Mar, [facility] [address] [address] Mar, Cough 786.2 and Drug-induced nausea and vomiting 787.01 [facility] [address] [place] [address] Mar, [facility] [address] [place] [address] Mar, Elevated glucose 790.29 [facility] [address] [place] [id number] [place] [address] Mar, [facility] [address] [place] [id number] [place] [address] Mar, Elevated glucose 790.29 [facility] [address] [id number] [address] [place] [address] Mar, [facility] [address] [id number] [address] [place] [address] Mar, Elevated glucose 790.29 and Degenerative arthritis of lumbar spine 721.3 [facility] [address] [id number] [address] [place] [address] Feb, Elevated glucose 790.29 [facility] [address] [id number] [address] [place] [address] Feb, Lumbar back pain 724.2 [facility] [address] [id number] [address] [place] [address] Feb, Lumbar back pain 724.2 [facility] [address] [id number] [address] [place] [address] Feb, Routine gynecological examin ation V72.31 ; Pap test, as part of routine gynecological examination V76.2 ; Breast cancer screening V76.10 ; Irregular menses 626.4 ; Dysmenorrhea 625.3 and Routine physicl lab exam V72.62 [facility] [address] [id number] [address] [place] [address] Jan, Eustachian tube dysfunction 381.81 [facility] [address] [id number] [address] [place] [address] Nov, [facility] [address] [id number] [address] [place] [address] Nov, [facility] [address] [id number] [address] [place] [address] Sep, [facility] [address] [id number] [address] [place] [address] Sep, [facility] [address] [id number] [address] [place] [address] Aug, [facility] [address] [id number] [address] [place] [address] Aug, [facility] [address] [facility] [id number] [address] [place] [address] Jun, [facility] [address] [facility] [id number] [address] [place] [address] Jun, [facility] [address] [facility] [id number] [address] [place] [address] Jun, [facility] [address] [facility] [id number] [address] [place] [address] Jun, IMMUNIZATIONS No Known Immunizations SOCIAL HISTORY Never Assessed REASON FOR VISIT defer labs/med order PLAN OF CARE VITAL SIGNS MEDICATIONS Medication Instructions Dosage Frequency Start Date End Date Duration S tatus Lipitor 40 mg Orally Once a day 1 tablet 24h Nov, 30 day(s) Active RESULTS No Results PROCEDURES No Known procedures INSTRUCTIONS MEDICATIONS ADMINISTERED No Known Medications MEDICAL (GENERAL) HISTORY Type Description Date Medical History Elevated Insulin Level Medical History Severe Degenerative Arthritis LS Medical History Chronic Back Pain Medical History Prediabetic 6.1 AIC
--- OUTSIDE RECORDS SUMMARY | 2020-02-02 09:53 | XMS REPORT ---
Author Author Aparna RIDLEY Organization [facility] Address [address] [place] [address] Care Team Providers Care Parts Clerk Name Role Phone TITA RIDLEY Unavailable PROBLEMS Type Condition ICD9-CM Code XPR21-LI Code Onset Dates Condition S tatus SNOMED Code Problem Chronic seasonal allergic rhinitis, unspecified trigger J30.2 Active 390076953 Problem BMI 45.0-49.9, adult Z68.42 Active 857552931 Problem Establishing care with new doctor, encounter for Z 76.89 Active 626348576 Problem Cough R05 Active 62279512 Problem Skin tags, multiple acquired L91.8 A ctive 970474900 Problem Toe pain, left M79.675 Active 37168 4461491781 Problem Essential hypertension I10 Active 34763261 Problem Upper respiratory infection with cough and congestion J06.9 Active 84204741 Problem Morbid obesity due to excess calories E66.01 Active 538687695 Problem 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 Active 69053525 Problem Lumbar disc disease M51.9 Active 41947034 Problem Mixed hyperlipidemia E78.2 Active 822753455 Problem Dysthymia F34.1 Active 82721474 Problem Type 2 diabetes mellitus wit hout complication, without long-term current use of insulin E11.9 Active 083659472 Problem Seasonal allergic rhinitis, unspecified allergic rhinitis trigger J30.2 Active 792917411 ALLERGIES No Information ENCOUNTERS Encounter Location Date Diagnosis [facility] [address] [facility] [id number] [address] [place] [phone] Feb, [facility] [address] [facility] [id number] [address] [place] [address] December, Upper respiratory infection with cough and congestion J06.9 ; Cough R05 ; Skin tags, multiple acquired L91.8 and BMI 45.0-49.9, adult Z68.42 [place] [address] [place] [id number] [address] [place] [address] Nov, Mixed hyperlipidemia E78.2 [place] [address] [address] Nov, [place] [address] [place] [id number] [address] [place] [address] Nov, Establishing care with tiera guadarrama, encounter [...] of both lower extremities with complications I83.893 [place] [address] [address] Oct, Chronic seasonal allergic rh initis, unspecified trigger J30.2 ; Cough due to bronchospasm J98.01 and BMI 45.0-49.9, adult Z68.42 [place] [address] [address] Oct, Type 2 diabetes mellitus wit hout complication, without long-term current use of insulin E11.9 [place] [address] [place] [id number] [address] [place] [address] Jun, Type 2 diabetes mellitus wit hout complication, without long-term current use of insulin E11.9 ; Dysthymia F34.1 ; Lumbar disc disease M51.9 ; Chronic seasonal allergic rhinitis, unspecified trigger J30.2 and BMI 40.0-44.9, adult Z68.41 [place] [address] [place] [id number] [address] [place] [address] May, [place] [address] [place] [id number] [address] [place] [address] Feb, Dysthymia F34.1 ; Lumbar dis c disease M51.9 and Type 2 diabetes mellitus without complication, without long-term current use of insulin E11.9 [place] [address] [address] Feb, Type 2 diabetes mellitus wit hout complication, without long-term current use of insulin E11.9 [place] [address] [address] December, Seasonal allergic rhinitis, unspecified allergic rhinitis trigger J30.2 [place] [address] [address] Nov, [address] [address] Nov, Dysthymia F34.1 and Pre-diab etes R73.[address] [address] Oct, Dysthymia F34.1 [place] [address] [address] Jun, Varicose veins of both lower extremities with complications I83.893 and Lumbar disc disease M51.9 [place] [address] [address] Mar, [address] [address] Oct, [place] [address] [address] Jun, Insect bite of abdomen, init ial encounter S30.871A and Encounter for immunization Z23 [address] [address] 28 Apr, [address] [address] 09 Apr, 2015 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 ; Lumbar back pain 724.2 ; Pre-diabetes 790.29 and Left knee pain 719.46 [facility] [address] [id number] [address] [place] [address] Mar, [facility] [address] [id number] [address] [place] [address] Mar, Cough 786.2 and Drug-induced nausea and vomiting 787.01 [facility] [address] [id number] [address] [place] [address] Mar, [facility] [address] [id number] [address] [place] [address] Mar, Elevated glucose 790.29 [place] [address] [id number] [address] [place] [address] Mar, [place] [address] [id number] [address] [place] [phone] Mar, Elevated glucose 790.29 [place] [address] [id number] [address] [place] [address] Mar, [facility] [address] [id number] [address] [place] [address] Mar, Elevated glucose 790.29 and Degenerative arthritis of lumbar spine 721.3 [place] [address] [id number] [address] [place] [address] Feb, Elevated glucose 790.29 [place] [address] [id number] [address] [place] [address] Feb, Lumbar back pain 724.2 [place] [address] [id number] [address] [place] [address] Feb, Lumbar back pain 724.2 [place] [address] [facility] [id number] [address] [place] [address] Feb, Routine gynecological examin ation V72.31 ; Pap test, as part of routine gynecological examination V76.2 ; Breast cancer screening V76.10 ; Irregular menses 626.4 ; Dysmenorrhea 625.3 and Routine physicl lab exam V72.62 [facility] [address] [id number] [address] [place] [address] Jan, Eustachian tube dysfunction 381.81 [facility] [address] [id number] [address] [place] [address] Nov, [facility] [address] [id number] [address] [place] [address] Nov, [facility] [address] [id number] [address] [place] [address] Sep, [facility] [address] [id number] [address] [place] [address] Sep, [facility] [address] [id number] [address] [place] [address] Aug, [facility] [address] [id number] [address] [place] [address] Aug, [facility] [address] [id number] [address] [place] [phone] Jun, [facility] [address] [id number] [address] [place] [phone] Jun, [facility] [address] [id number] [address] [place] [phone] Jun, [facility] [address] [id number] [address] [place] [address] Jun, IMMUNIZATIONS No Known Immunizations SOCIAL HISTORY Never Assessed REASON FOR VISIT Med Refill PLAN OF CARE VITAL SIGNS MEDICATIONS Medication Instructions Dosage Frequency Start Date End Date Duration S tatus Actos 30 MG Orally Once a day 1 tablet 24h A ctive Fluoxetine HCl 20 mg Orally Once a day 1 tablet 24h Active RESULTS No Results PROCEDURES No Known procedures INSTRUCTIONS MEDICATIONS ADMINISTERED No Known Medications MEDICAL (GENERAL) HISTORY Type Description Date Medical History Elevated Insulin Level Medical History Severe Degenerative Arthritis LS Medical History Chronic Back Pain Medical History Prediabetic 6.1 AIC
--- OUTSIDE RECORDS SUMMARY | 2020-02-02 09:53 | XMS REPORT ---
Author Aparna Ballard Organization [employer] Address Unknown Phone Unavailable Care Team Providers Care Immersion Metal Cleaner Name Role Phone TITA RIDLEY CP Unavailable Allergies No Known Allergies Problems Problem Type Condition ICD-9 Code Onset Dates Condition Statu s Problem Candidiasis of vulva and vagina 112.1 Active Assessment Elevated glucose 790.29 Active Problem Unspecified hypertrophic and atrophic condition of ski n 701.9 Active Medications No Known Medications Procedures Procedure Coding System Code Date GLYCATED HEMOGLOBIN TEST CPT-4 94799 Apr 07, 2015 Results No Known Results Summary Purpose [employer] Submission
--- OUTSIDE RECORDS SUMMARY | 2020-02-02 09:53 | XMS REPORT ---
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 Name Role Phone ROSMERY Olmos Unavailable PROBLEMS Type Condition ICD9-CM Code [id number] Code Onset Dates Condition S tatus SNOMED Code Problem Toe pain, left M79.675 Active 20533 8269631755 Problem BMI 45.0-49.9, adult Z68.42 Active 057522111 Problem Morbid obesity due to excess calories E66.01 Active 407150219 Problem Cough R05 Active 50066030 Problem Skin tags, multiple acquired L91.8 A ctive 300217790 Problem Hammertoe of left foot M20.42 Active 514157285 Problem Establishing care with new doctor, encounter for Z 76.89 Active 228585163 Problem Upper respiratory infection with cough and congestion J06.9 Active 79125924 Problem Hammertoe of right foot M20.41 Active 997149094 Problem Mixed hyperlipidemia E78.2 Active 397709602 Problem Type 2 diabetes mellitus wit hout complication, without long-term current use of insulin E11.9 Active 157651152 Problem Dysthymia F34.1 Active 83187561 Problem Seasonal allergic rhinitis, unspecified allergic rhinitis trigger J30.2 Active 436464466 Problem 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 Active 40105402 Problem Chronic seasonal allergic rhinitis, unspecified trigger J30.2 Active 212090353 Problem Lumbar disc disease M51.9 Active 82288058 Problem Essential hypertension I10 Active 71430557 ALLERGIES No Known Allergies ENCOUNTERS Encounter Location Date Diagnosis [facility] [address] [facility] [id number] [address] [place] [address] Feb, [place] of foot L84 ; Hammertoe of right foot M20.41 ; Hammertoe of left foot M20.42 and Type 2 diabetes mellitus with diabetic neuropathy, unspecified whether detention insulin use E11.40 [place] [address] [place] [id number] [place] [address] Feb, [place] [address] [place] [id number] [place] [address] Jan, [place] [address] [place] [id number] [place] [address] Jan, Peripheral edema R60.9 ; Ess ential hypertension I10 and BMI 50.0- 59.9, adult Z68.43 [place] [address] [address] December, [place] [address] [address] December, [place] [address] [address] December, Upper respiratory infection with cough and congestion J06.9 ; Cough R05 ; Skin tags, multiple acquired L91.8 and BMI 45.0-49.9, adult Z68.42 [place] [address] [address] Nov, Mixed hyperlipidemia E78.2 [place] [address] [address] Nov, [place] [address] [address] Nov, Establishing care with tiera guadarrama encounter [...] of both lower extremities with complications I83.893 [place] [address] [place] [address] Oct, Chronic seasonal allergic rh initis, unspecified trigger J30.2 ; Cough due to bronchospasm J98.01 and BMI 45.0-49.9, adult Z68.42 [place] [address] [address] Oct, Type 2 diabetes mellitus wit hout complication, without long-term current use of insulin E11.9 [place] [address] [address] Jun, Type 2 diabetes mellitus wit hout complication, without long-term current use of insulin E11.9 ; Dysthymia F34.1 ; Lumbar disc disease M51.9 ; Chronic seasonal allergic rhinitis, unspecified trigger J30.2 and BMI 40.0-44.9, adult Z68.[address] [address] May, [place] [address] [address] Feb, Dysthymia F34.1 ; Lumbar dis c disease M51.9 and Type 2 diabetes mellitus without complication, without long-term current use of insulin E11.9 [place] [address] [address] Feb, Type 2 diabetes mellitus wit hout complication, without long-term current use of insulin E11.9 [place] [address] [address] December, Seasonal allergic rhinitis, unspecified allergic rhinitis trigger J30.2 [place] [address] [address] Nov, [place] [address] [address] Nov, Dysthymia F34.1 and Pre-diab etes R73.[address] [address] 15 Oct, 2016 Dysthymia F34.1 [facility] [address] [facility] [id number] [address] [place] [address] Jun, Varicose veins of both lower extremities with complications I83.893 and Lumbar disc disease M51.9 [facility] [address] [place] [id number] [address] [place] [address] Mar, [facility] [address] [address] Oct, [facility] [address] [address] Jun, Insect bite of abdomen, init ial encounter S30.871A and Encounter for immunization Z23 [place] [address] [place] [id number] [address] [place] [address] Apr, [place] [address] [address] Apr, 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 ; Lumbar back pain 724.2 ; Pre-diabetes 790.29 and Left knee pain 719.46 [place] [address] [place] [id number] [place] [address] Mar, [facility] [address] [place] [id number] [address] [place] [address] Mar, Cough 786.2 and Drug-induced nausea and vomiting 787.01 [facility] [address] [place] [id number] [address] [place] [address] Mar, [facility] [address] [place] [id number] [address] [place] [address] Mar, Elevated glucose 790.29 [facility] [address] [place] [id number] [address] [place] [address] Mar, [place] [address] [place] [id number] [place] [address] Mar, Elevated glucose 790.29 [facility] [address] [id number] [address] [place] [address] Mar, [facility] [address] [id number] [address] [place] [address] Mar, Elevated glucose 790.29 and Degenerative arthritis of lumbar spine 721.3 [facility] [address] [id number] [address] [place] [address] Feb, Elevated glucose 790.29 [facility] [address] [id number] [address] [place] [address] Feb, Lumbar back pain 724.2 [facility] [address] [id number] [address] [place] [address] Feb, Lumbar back pain 724.2 [facility] [address] [id number] [address] [place] [address] Feb, Routine gynecological examin ation V72.31 ; Pap test, as part of routine gynecological examination V76.2 ; Breast cancer screening V76.10 ; Irregular menses 626.4 ; Dysmenorrhea 625.3 and Routine physicl lab exam V72.62 [facility] [address] [id number] [address] [place] [address] Jan, Eustachian tube dysfunction 381.81 [facility] [address] [id number] [address] [place] [address] Nov, [facility] [address] [id number] [address] [place] [address] Nov, [facility] [address] [id number] [address] [place] [address] Sep, [facility] [address] [id number] [address] [place] [address] Sep, [facility] [address] [facility] [id number] [address] [place] [address] Aug, [place] [id number] [facility] [id number] [address] [place] [address] Aug, [facility] [address] [facility] [id number] [address] [place] [address] Jun, [facility] [address] [facility] [id number] [address] [place] [address] Jun, [facility] [address] [facility] [id number] [address] [place] [address] Jun, [facility] [address] [facility] [id number] [address] [place] [address] Jun, IMMUNIZATIONS No Known Immunizations SOCIAL HISTORY Never Assessed REASON FOR VISIT Cough started about 3 days ago, dry cough that continues and looses breath. , li ttle toe on left foot feels numb for last couple of weeks. Reports has vericose veins and diabetes, but is concerned about the numbness. Reports has appt with Miguel Mckeon CP, in November. CBrumbackRN PLAN OF CARE Activity Details Follow Up prn Reason: VITAL SIGNS Height 67 in 2017-11-02 Weight 307.2 lbs 2017-11-02 Temperature 97.8 degrees Fahrenheit 2017-11-02 Heart Rate 88 bpm 2017-11-02 Respiratory Rate 20 2017-11-02 Oximetry 97 % 2017-11-02 BMI 48.11 kg/m2 2017-11-02 Blood pressure systolic 144 mmHg 2017-11-02 Blood pressure diastolic 88 mmHg 2017-11-02 MEDICATIONS Medication Instructions Dosage Frequency Start Date End Date Duration S tatus Actos 30 MG TAKE ONE TABLET BY MOUTH ONCE DAILY 30 Active Lisinopril 5 mg Orally Once a day 1 tablet 24h Jun, 30 day(s) Active Zyrtec Allergy 10 mg Orally Once a day 1 tablet 24h Jun, 7 7 Dec, 2017 30 day(s) Not-Taking PredniSONE 20 mg Orally once daily 2 tablet with food 24h Oct, 05 days Active Flonase 50 MCG/ACT Nasally Once a day 1 spray in each nostril 24h Jun, 30 day(s) Not-Taking Test strips Test Strips Test blood sugar (glucocard) Active Glucometer 1 glucometer Test blood sugar (glucocard Active Fluoxetine HCl 20 mg Orally Once a day 1 tablet 24h Active Diclofenac sodium 75 mg Orally 2 times a day, pc 1 capsule Not-Taking RESULTS No Results PROCEDURES No Known procedures INSTRUCTIONS MEDICATIONS ADMINISTERED No Known Medications MEDICAL (GENERAL) HISTORY Type Description Date Medical History Elevated Insulin Level Medical History Severe Degenerative Arthritis LS Medical History Chronic Back Pain Medical History Prediabetic 6.1 AIC
--- OUTSIDE RECORDS SUMMARY | 2020-02-02 09:54 | XMS REPORT ---
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
--- OUTSIDE RECORDS SUMMARY | 2020-02-02 09:54 | XMS REPORT | Continuity of Care Document ---
Demographics Preferred Language Unknown Marital Status Unknown Church Affiliation Unknown Race Unknown Ethnic Group Unknown Author Organization Unknown Address Unknown Phone Unavailable Allergies Active Description Code Type Severity Reaction Onset Reported/Identified Relationship to Patient Clinical Status Yes No Allergy Information Available [id number] Drug Allergy Unknown N/A 020 Yes No Known Drug Allergies [id number] Drug Allergy Unknown N/A 01/27/2020 Medications There is no data. Problems Date Dx Coded Attending Type Code Diagnosis Diagnosed By 07/12/1100 TEO KIM DO Ot Z01.818 ENCOUNTER FOR OTHER PREPROCEDURAL EXAMIN 06/23/2014 TITA RIDLEY APRN 112 .1 CANDIDIASIS OF VULVA AND VAGINA 06/23/2014 TITA RIDLEY APRN 701 .9 SKIN TAG 05/17/2015 TITA RIDLEY AUGER SUPERVISOR Ot 721 .3 09/08/2019 GURPREET MCKENNA SISI Ot A41.9 SEPSIS, UNSPECIFIED ORGANISM 09/08/2019 GURPREET MCKENNA SISI Ot E11.51 TYPE 2 DIABETES W DIABETIC PERIPHERAL AN 09/08/2019 GURPREET MCKENNA SISI Ot E66.01 MORBID (SEVERE) OBESITY DUE TO EXCESS CA 09/08/2019 GURPREET MCKENNA SISI Ot F32.9 MAJOR DEPRESSIVE DISORDER, SINGLE EPISOD 09/08/2019 GURPREET MCKENNA SISI Ot I10 ESSENTIAL (PRIMARY) HYPERTENSION 09/08/2019 GURPREET MCKENNA SISI Ot I80.02 PHLEBITIS AND THOMBOPHLB OF SUPERFIC VES 09/08/2019 GURPREET MCKENNA SISI Ot I87.8 OTHER SPECIFIED DISORDERS OF VEINS 09/08/2019 GURPREET MCKENNA SISI Ot K59.00 CONSTIPATION, UNSPECIFIED 09/08/2019 GURPREET MCKENNA SISI Ot L03.11 6 CELLULITIS OF LEFT LOWER LIMB 09/08/2019 GURPREET MCKENNA SISI Ot Z68.42 BODY MASS INDEX (BMI) 45.0-49.9, ADULT 09/08/2019 GURPREET MCKENNA SISI Ot 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 09/15/2019 ASTRID, ZEHRA K COACH PROFESSIONAL ATHLETES Ot R50.9 FEVER, UNSPECIFIED 10/06/2019 O'DELL, MELVINA K COACH PROFESSIONAL ATHLETES Ot I80 .9 PHLEBITIS AND THROMBOPHLEBITIS OF UNSPEC 10/06/2019 O'DELL, MELVINA K COACH PROFESSIONAL ATHLETES Ot L03.116 CELLULITIS OF LEFT LOWER LIMB 10/06/2019 O'DELL, MELVINA K COACH PROFESSIONAL ATHLETES Ot R10.32 LEFT LOWER QUADRANT PAIN 10/06/2019 O'DELL, MELVINA K COACH PROFESSIONAL ATHLETES Ot R59 .0 LOCALIZED ENLARGED LYMPH NODES 10/06/2019 ASTRID ZEHRA Telly COACH PROFESSIONAL ATHLETES Ot R50.9 FEVER, UNSPECIFIED 10/08/2019 FENECH DO, TEO S Ot N85.9 NONINFLAMMATORY DISORDER OF UTERUS, UNSP 10/08/2019 FENECH DO, TEO S Ot N93.8 OTHER SPECIFIED ABNORMAL UTERINE AND VAG 10/09/2019 FENECH DO, TEO S Ot N85.9 NONINFLAMMATORY DISORDER OF UTERUS, UNSP 10/09/2019 FENECH DO, TEO S Ot N93.8 OTHER SPECIFIED ABNORMAL UTERINE AND VAG 10/27/2019 FENECH DO, TEO S Ot N85.9 NONINFLAMMATORY DISORDER OF UTERUS, UNSP 10/27/2019 FENECH DO, TEO S Ot N93.8 OTHER SPECIFIED ABNORMAL UTERINE AND VAG 12/15/2019 ZEHRA RESENDIZ COACH PROFESSIONAL ATHLETES Ot R50.9 FEVER, UNSPECIFIED 12/30/2019 O'DELL, MELVINA K COACH PROFESSIONAL ATHLETES Ot I80 .9 PHLEBITIS AND THROMBOPHLEBITIS OF UNSPEC 12/30/2019 O'DELL, MELVINA K COACH PROFESSIONAL ATHLETES Ot L03.116 CELLULITIS OF LEFT LOWER LIMB 12/30/2019 O'DELL, MELVINA K COACH PROFESSIONAL ATHLETES Ot R10.32 LEFT LOWER QUADRANT PAIN 12/30/2019 O'DELL, MELVINA K COACH PROFESSIONAL ATHLETES Ot R59 .0 LOCALIZED ENLARGED LYMPH NODES 12/30/2019 O'DELL, MELVINA K COACH PROFESSIONAL ATHLETES Ot I80 .9 PHLEBITIS AND THROMBOPHLEBITIS OF UNSPEC 12/30/2019 O'DELL, MELVINA K COACH PROFESSIONAL ATHLETES Ot L03.116 CELLULITIS OF LEFT LOWER LIMB 12/30/2019 O'DELL, MELVINA K COACH PROFESSIONAL ATHLETES Ot R10.32 LEFT LOWER QUADRANT PAIN 12/30/2019 O'DELL, MELVINA K COACH PROFESSIONAL ATHLETES Ot R59 .0 LOCALIZED ENLARGED LYMPH NODES 12/30/2019 ZEHRA RESENDIZ COACH PROFESSIONAL ATHLETES Ot R50.9 FEVER, UNSPECIFIED 12/30/2019 FENECH DO, TEO S Ot N85.9 NONINFLAMMATORY DISORDER OF UTERUS, UNSP 12/30/2019 FENECH DO, TEO S Ot N93.8 OTHER SPECIFIED ABNORMAL UTERINE AND VAG 12/30/2019 O'DELL, MELVINA Varner APRN Ot I80 .9 PHLEBITIS AND THROMBOPHLEBITIS OF UNSPEC 12/30/2019 O'DELL, MELVINA Varner APRN Ot L03.116 CELLULITIS OF LEFT LOWER LIMB 12/30/2019 O'DELL, MELVINA Varner APRN Ot R10.32 LEFT LOWER QUADRANT PAIN 12/30/2019 O'DELL, MELVINA Varner APRN Ot R59 .0 LOCALIZED ENLARGED LYMPH NODES 12/30/2019 [facility] DO, TEO S Ot N85.9 NONINFLAMMATORY DISORDER OF UTERUS, UNSP 12/30/2019 [facility] DO, TEO S Ot N93.8 OTHER SPECIFIED ABNORMAL UTERINE AND VAG 01/30/2020 ASTRID ZEHRA Telly MEDINAN Ot R50.9 FEVER, UNSPECIFIED Procedures Code Description [place] [address] ROUT INE VENIPUNCTURE 06/23/2014 72709 CBC 06/23/2014 11079 CMP 06/23/[id number] GF R CALC (RESULT ONLY) 06/23/2014 THYANA THY ROID ANALYZER 06/23/2014 Results Test Result Range Comp. Metabolic Panel (14) - 11/21/16 11 :24 Glucose, Serum 100 mg/dL 65-99 BUN 10 mg/dL 6-24 Creatinine, Serum 0.69 mg/dL 0.57-1.00 eGFR If NonAfricn Am 108 mL/min/1.73 >59 eGFR If Africn Am 125 mL/min/1.73 >5 9 BUN/Creatinine Ratio 14 9-23 Sodium, Serum 141 mmol/L 134-144 Potassium, Serum 4.1 mmol/L 3.5-5.2 Chloride, Serum 98 mmol/L 96-106 Carbon Dioxide, Total 28 mmol/L 18-29 Calcium, Serum 9.3 mg/dL 8.7-10.2 Protein, Total, Serum 7.8 g/dL 6.0-8.5 Albumin, Serum 4.5 g/dL 3.5-5.5 Globulin, Total 3.3 g/dL 1.5-4.5 A/G Ratio 1.4 1.2-2.2 Bilirubin, Total 0.2 mg/dL 0.0-1.2 Alkaline Phosphatase, S 153 IU/L 39-117 AST (SGOT) 21 IU/L 0-40 ALT (SGPT) 21 IU/L 0-32 CULTURE, THROAT - 12/15/18 14:21 CULTURE, THROAT SEE NOTE NRG LIPID PANEL - 06/05/19 07:51 CHOLESTEROL, TOTAL 161 mg/dL <200 HDL CHOLESTEROL 35 mg/dL >50 TRIGLYCERIDES 175 mg/dL <150 LDL-CHOLESTEROL 99 mg/dL (calc) NRG CHOL/HDLC RATIO 4.6 (calc) <5.0 NON HDL CHOLESTEROL 126 mg/dL (calc) <13 0 GLUCOSE, SERUM - 06/05/19 07:51 GLUCOSE 153 mg/dL 65-99 EXTRA EWING-TOP TUBE - 06/05/19 07:51 COMMENT NRG EXTRA EWING-TOP TUBE NRG Complete blood count (CBC) with automate d white blood cell (WBC) differential - 09/05/19 14:41 Blood leukocytes automated count (number/volume) 12.8 10*3/uL 4.3-11.0 Blood erythrocytes automated count (number/volume) 4.88 10*6/uL 4.35-5.85 Venous blood hemoglobin measurement (mass/volume) 13.1 g/dL 11.5-16.0 Blood hematocrit (volume fraction) 40 % 35-52 Automated erythrocyte mean corpuscular volume 82 [ foz_us] 80-99 Automated erythrocyte mean corpuscular h emoglobin (mass per erythrocyte) 27 pg 25-34 Automated erythrocyte mean corpuscular h emoglobin concentration measurement (mass/volume) 33 g/dL 32-36 Automated erythrocyte distribution width ratio 12. 9 % 10.0- 14.5 Automated blood platelet count (count/volume) 253 10*3/uL 130-400 Automated blood platelet mean volume measurement 9.3 [foz_us] 7.4-10.4 Automated blood neutrophils/100 leukocytes 66 % 42-75 Automated blood lymphocytes/100 leukocytes 23 % 12-44 Blood monocytes/100 leukocytes 4 % 0-12 Automated blood eosinophils/100 leukocytes 7 % 0-10 Automated blood basophils/100 leukocytes 1 % 0-10 Blood neutrophils automated count (number/volume) 8.4 10*3 1.8-7.8 Blood lymphocytes automated count (number/volume) 2.9 10*3 1.0-4.0 Blood monocytes automated count (number/volume) 0. 6 10*3 0.0-1.0 Automated eosinophil count 0.9 10*3/uL 0 .0-0.3 Automated blood basophil count (count/volume) 0.1 10*3/uL 0.0-0.1 Comprehensive metabolic panel - 09/05/19 14:41 Serum or plasma sodium measurement (moles/volume) 136 mmol/L 135-145 Serum or plasma potassium measurement (moles/volume) 4.1 mmol/L 3.6-5.0 Serum or plasma chloride measurement (moles/volume) 96 mmol/L 98-107 Carbon dioxide 25 mmol/L 21-32 Serum or plasma anion gap determination (moles/volume) 15 mmol/L 5-14 Serum or plasma urea nitrogen measurement (mass/volume ) 11 mg/dL 7-18 Serum or plasma creatinine measurement (mass/volume) 0.69 mg/dL 0.60-1.30 Serum or plasma urea nitrogen/creatinine mass ratio 16 NRG Serum or plasma creatinine measurement w ith calculation of estimated glomerular filtration rate > NRG Serum or plasma glucose measurement (mass/volume) 138 mg/dL 70-105 Serum or plasma calcium measurement (mass/volume) 9.9 mg/dL 8.5-10.1 Serum or plasma total bilirubin measurement (mass/volu me) 0.3 mg/dL 0.1-1.0 Serum or plasma alkaline phosphatase zohra surement (enzymatic activity/volume) 133 U/L 40-136 Serum or plasma aspartate aminotransfera se measurement (enzymatic activity/volume) 16 U/L 5-34 Serum or plasma alanine aminotransferase measurement (enzymatic activity/volume) 17 U/L 0-55 Serum or plasma protein measurement (mass/volume) 8.3 g/dL 6.4-8.2 Serum or plasma albumin measurement (mass/volume) 4.3 g/dL 3.2-4.5 CALCIUM CORRECTED 9.7 mg/dL 8.5-10.1 Complete blood count (CBC) with automate d white blood cell (WBC) differential - 09/05/19 17:50 Blood leukocytes automated count (number/volume) 12.0 10*3/uL 4.3-11.0 Blood erythrocytes automated count (number/volume) 4.80 10*6/uL 4.35-5.85 Venous blood hemoglobin measurement (mass/volume) 12.9 g/dL 11.5-16.0 Blood hematocrit (volume fraction) 39 % 35-52 Automated erythrocyte mean corpuscular volume 81 [ foz_us] 80-99 Automated erythrocyte mean corpuscular h emoglobin (mass per erythrocyte) 27 pg 25-34 Automated erythrocyte mean corpuscular h emoglobin concentration measurement (mass/volume) 33 g/dL 32-36 Automated erythrocyte distribution width ratio 14. 0 % 10.0- 14.5 Automated blood platelet count (count/volume) 261 10*3/uL 130-400 Automated blood platelet mean volume measurement 10.1 [foz_us] 7.4-10.4 Automated blood neutrophils/100 leukocytes 68 % 42-75 Automated blood lymphocytes/100 leukocytes 22 % 12-44 Blood monocytes/100 leukocytes 4 % 0-12 Automated blood eosinophils/100 leukocytes 6 % 0-10 Automated blood basophils/100 leukocytes 0 % 0-10 Blood neutrophils automated count (number/volume) 8.1 10*3 1.8-7.8 Blood lymphocytes automated count (number/volume) 2.7 10*3 1.0-4.0 Blood monocytes automated count (number/volume) 0. 5 10*3 0.0-1.0 Automated eosinophil count 0.7 10*3/uL 0 .0-0.3 Automated blood basophil count (count/volume) 0.0 10*3/uL 0.0-0.1 Erythrocyte sedimentation rate by gigi gren method - 09/05/19 17:50 Erythrocyte sedimentation rate by westergren method 17 mm 0- 20 Serum or plasma choriogonadotropin (preg jian test) detection - 09/05/19 18:15 Serum or plasma choriogonadotropin ( test) de tection NEGATIVE NEGATIVE Comprehensive metabolic panel - 09/05/19 18:15 Serum or plasma sodium measurement (moles/volume) 136 mmol/L 135-145 Serum or plasma potassium measurement (moles/volume) 4.1 mmol/L 3.6-5.0 Serum or plasma chloride measurement (moles/volume) 99 mmol/L 98-107 Carbon dioxide 22 mmol/L 21-32 Serum or plasma anion gap determination (moles/volume) 15 mmol/L 5-14 Serum or plasma urea nitrogen measurement (mass/volume ) 11 mg/dL 7-18 Serum or plasma creatinine measurement (mass/volume) 0.82 mg/dL 0.60-1.30 Serum or plasma urea nitrogen/creatinine mass ratio 13 NRG Serum or plasma creatinine measurement w ith calculation of estimated glomerular filtration rate > NRG Serum or plasma glucose measurement (mass/volume) 160 mg/dL 70-105 Serum or plasma calcium measurement (mass/volume) 9.4 mg/dL 8.5-10.1 Serum or plasma total bilirubin measurement (mass/volu me) 0.3 mg/dL 0.1-1.0 Serum or plasma alkaline phosphatase zohra surement (enzymatic activity/volume) 124 U/L 40-136 Serum or plasma aspartate aminotransfera se measurement (enzymatic activity/volume) 17 U/L 5-34 Serum or plasma alanine aminotransferase measurement (enzymatic activity/volume) 17 U/L 0-55 Serum or plasma protein measurement (mass/volume) 7.8 g/dL 6.4-8.2 Serum or plasma albumin measurement (mass/volume) 4.1 g/dL 3.2-4.5 CALCIUM CORRECTED 9.3 mg/dL 8.5-10.1 Serum or plasma C reactive protein measu rement (mass/volume) - 09/05/19 18:15 Serum or plasma C reactive protein measurement (mass/v olume) 7.72 mg/dL 0.00-0.50 Blood lactic acid measurement (moles/vol ume) - 09/05/19 18:15 Blood lactic acid measurement (moles/volume) 1.74 mmol/L 0.50-2.00 Bacterial blood culture - 09/05/19 18:15 Bacterial blood culture NG NRG Bacterial blood culture - 09/05/19 18:42 Bacterial blood culture NG NRG Capillary blood glucose measurement by g lucometer (mass/volume) - 09/05/19 20:50 Capillary blood glucose measurement by glucometer (mas s/volume) 137 mg/dL 70-110 Complete blood count (CBC) with automate d white blood cell (WBC) differential - 09/06/19 05:24 Blood leukocytes automated count (number/volume) 9.2 10*3/uL 4.3-11.0 Blood erythrocytes automated count (number/volume) 4.16 10*6/uL 4.35-5.85 Venous blood hemoglobin measurement (mass/volume) 11.4 g/dL 11.5-16.0 Blood hematocrit (volume fraction) 34 % 35-52 Automated erythrocyte mean corpuscular volume 82 [ foz_us] 80-99 Automated erythrocyte mean corpuscular h emoglobin (mass per erythrocyte) 27 pg 25-34 Automated erythrocyte mean corpuscular h emoglobin concentration measurement (mass/volume) 33 g/dL 32-36 Automated erythrocyte distribution width ratio 13. 3 % 10.0- 14.5 Automated blood platelet count (count/volume) 218 10*3/uL 130-400 Automated blood platelet mean volume measurement 9.7 [foz_us] 7.4-10.4 Automated blood neutrophils/100 leukocytes 55 % 42-75 Automated blood lymphocytes/100 leukocytes 32 % 12-44 Blood monocytes/100 leukocytes 5 % 0-12 Automated blood eosinophils/100 leukocytes 8 % 0-10 Automated blood basophils/100 leukocytes 0 % 0-10 Blood neutrophils automated count (number/volume) 5.0 10*3 1.8-7.8 Blood lymphocytes automated count (number/volume) 3.0 10*3 1.0-4.0 Blood monocytes automated count (number/volume) 0. 4 10*3 0.0-1.0 Automated eosinophil count 0.7 10*3/uL 0 .0-0.3 Automated blood basophil count (count/volume) 0.0 10*3/uL 0.0-0.1 Comprehensive metabolic panel - 09/06/19 05:24 Serum or plasma sodium measurement (moles/volume) 138 mmol/L 135-145 Serum or plasma potassium measurement (moles/volume) 3.8 mmol/L 3.6-5.0 Serum or plasma chloride measurement (moles/volume) 105 mmol/L 98-107 Carbon dioxide 22 mmol/L 21-32 Serum or plasma anion gap determination (moles/volume) 11 mmol/L 5-14 Serum or plasma urea nitrogen measurement (mass/volume ) 11 mg/dL 7-18 Serum or plasma creatinine measurement (mass/volume) 0.78 mg/dL 0.60-1.30 Serum or plasma urea nitrogen/creatinine mass ratio 14 NRG Serum or plasma creatinine measurement w ith calculation of estimated glomerular filtration rate > NRG Serum or plasma glucose measurement (mass/volume) 140 mg/dL 70-105 Serum or plasma calcium measurement (mass/volume) 8.3 mg/dL 8.5-10.1 Serum or plasma total bilirubin measurement (mass/volu me) 0.4 mg/dL 0.1-1.0 Serum or plasma alkaline phosphatase zohra surement (enzymatic activity/volume) 118 U/L 40-136 Serum or plasma aspartate aminotransfera se measurement (enzymatic activity/volume) 14 U/L 5-34 Serum or plasma alanine aminotransferase measurement (enzymatic activity/volume) 14 U/L 0-55 Serum or plasma protein measurement (mass/volume) 6.8 g/dL 6.4-8.2 Serum or plasma albumin measurement (mass/volume) 3.6 g/dL 3.2-4.5 CALCIUM CORRECTED 8.6 mg/dL 8.5-10.1 Capillary blood glucose measurement by g lucometer (mass/volume) - 09/06/19 11:09 Capillary blood glucose measurement by glucometer (mas s/volume) 132 mg/dL 70-110 Capillary blood glucose measurement by g lucometer (mass/volume) - 09/06/19 15:45 Capillary blood glucose measurement by glucometer (mas s/volume) 151 mg/dL 70-110 Capillary blood glucose measurement by g lucometer (mass/volume) - 09/06/19 21:01 Capillary blood glucose measurement by glucometer (mas s/volume) 130 mg/dL 70-110 Capillary blood glucose measurement by g lucometer (mass/volume) - 09/07/19 05:42 Capillary blood glucose measurement by glucometer (mas s/volume) 144 mg/dL 70-110 Complete blood count (CBC) with automate d white blood cell (WBC) differential - 09/07/19 07:09 Blood leukocytes automated count (number/volume) 6.5 10*3/uL 4.3-11.0 Blood erythrocytes automated count (number/volume) 4.17 10*6/uL 4.35-5.85 Venous blood hemoglobin measurement (mass/volume) 11.2 g/dL 11.5-16.0 Blood hematocrit (volume fraction) 34 % 35-52 Automated erythrocyte mean corpuscular volume 81 [ foz_us] 80-99 Automated erythrocyte mean corpuscular h emoglobin (mass per erythrocyte) 27 pg 25-34 Automated erythrocyte mean corpuscular h emoglobin concentration measurement (mass/volume) 33 g/dL 32-36 Automated erythrocyte distribution width ratio 12. 9 % 10.0- 14.5 Automated blood platelet count (count/volume) 201 10*3/uL 130-400 Automated blood platelet mean volume measurement 9.6 [foz_us] 7.4-10.4 Automated blood neutrophils/100 leukocytes 59 % 42-75 Automated blood lymphocytes/100 leukocytes 29 % 12-44 Blood monocytes/100 leukocytes 5 % 0-12 Automated blood eosinophils/100 leukocytes 7 % 0-10 Automated blood basophils/100 leukocytes 0 % 0-10 Blood neutrophils automated count (number/volume) 3.8 10*3 1.8-7.8 Blood lymphocytes automated count (number/volume) 1.9 10*3 1.0-4.0 Blood monocytes automated count (number/volume) 0. 3 10*3 0.0-1.0 Automated eosinophil count 0.5 10*3/uL 0 .0-0.3 Automated blood basophil count (count/volume) 0.0 10*3/uL 0.0-0.1 Comprehensive metabolic panel - 09/07/19 07:09 Serum or plasma sodium measurement (moles/volume) 136 mmol/L 135-145 Serum or plasma potassium measurement (moles/volume) 3.8 mmol/L 3.6-5.0 Serum or plasma chloride measurement (moles/volume) 102 mmol/L 98-107 Carbon dioxide 23 mmol/L 21-32 Serum or plasma anion gap determination (moles/volume) 11 mmol/L 5-14 Serum or plasma urea nitrogen measurement (mass/volume ) 6 mg/dL 7-18 Serum or plasma creatinine measurement (mass/volume) 0.70 mg/dL 0.60-1.30 Serum or plasma urea nitrogen/creatinine mass ratio 9 NRG Serum or plasma creatinine measurement w ith calculation of estimated glomerular filtration rate > NRG Serum or plasma glucose measurement (mass/volume) 136 mg/dL 70-105 Serum or plasma calcium measurement (mass/volume) 8.7 mg/dL 8.5-10.1 Serum or plasma total bilirubin measurement (mass/volu me) 0.5 mg/dL 0.1-1.0 Serum or plasma alkaline phosphatase zohra surement (enzymatic activity/volume) 119 U/L 40-136 Serum or plasma aspartate aminotransfera se measurement (enzymatic activity/volume) 28 U/L 5-34 Serum or plasma alanine aminotransferase measurement (enzymatic activity/volume) 22 U/L 0-55 Serum or plasma protein measurement (mass/volume) 6.8 g/dL 6.4-8.2 Serum or plasma albumin measurement (mass/volume) 3.5 g/dL 3.2-4.5 CALCIUM CORRECTED 9.1 mg/dL 8.5-10.1 Vancomycin trough - 09/07/19 07:09 Vancomycin trough 12.8 ug/mL 10.0-20.0 Capillary blood glucose measurement by g lucometer (mass/volume) - 09/07/19 11:20 Capillary blood glucose measurement by glucometer (mas s/volume) 129 mg/dL 70-110 Complete blood count (CBC) with automate d white blood cell (WBC) differential - 09/08/19 05:25 Blood leukocytes automated count (number/volume) 6.9 10*3/uL 4.3-11.0 Blood erythrocytes automated count (number/volume) 4.20 10*6/uL 4.35-5.85 Venous blood hemoglobin measurement (mass/volume) 11.3 g/dL 11.5-16.0 Blood hematocrit (volume fraction) 34 % 35-52 Automated erythrocyte mean corpuscular volume 81 [ foz_us] 80-99 Automated erythrocyte mean corpuscular h emoglobin (mass per erythrocyte) 27 pg 25-34 Automated erythrocyte mean corpuscular h emoglobin concentration measurement (mass/volume) 33 g/dL 32-36 Automated erythrocyte distribution width ratio 13. 1 % 10.0- 14.5 Automated blood platelet count (count/volume) 221 10*3/uL 130-400 Automated blood platelet mean volume measurement 9.7 [foz_us] 7.4-10.4 Automated blood neutrophils/100 leukocytes 58 % 42-75 Automated blood lymphocytes/100 leukocytes 30 % 12-44 Blood monocytes/100 leukocytes 4 % 0-12 Automated blood eosinophils/100 leukocytes 8 % 0-10 Automated blood basophils/100 leukocytes 0 % 0-10 Blood neutrophils automated count (number/volume) 4.0 10*3 1.8-7.8 Blood lymphocytes automated count (number/volume) 2.1 10*3 1.0-4.0 Blood monocytes automated count (number/volume) 0. 3 10*3 0.0-1.0 Automated eosinophil count 0.5 10*3/uL 0 .0-0.3 Automated blood basophil count (count/volume) 0.0 10*3/uL 0.0-0.1 Comprehensive metabolic panel - 09/08/19 05:25 Serum or plasma sodium measurement (moles/volume) 138 mmol/L 135-145 Serum or plasma potassium measurement (moles/volume) 3.5 mmol/L 3.6-5.0 Serum or plasma chloride measurement (moles/volume) 102 mmol/L 98-107 Carbon dioxide 26 mmol/L 21-32 Serum or plasma anion gap determination (moles/volume) 10 mmol/L 5-14 Serum or plasma urea nitrogen measurement (mass/volume ) 7 mg/dL 7-18 Serum or plasma creatinine measurement (mass/volume) 0.75 mg/dL 0.60-1.30 Serum or plasma urea nitrogen/creatinine mass ratio 9 NRG Serum or plasma creatinine measurement w ith calculation of estimated glomerular filtration rate > NRG Serum or plasma glucose measurement (mass/volume) 127 mg/dL 70-105 Serum or plasma calcium measurement (mass/volume) 8.8 mg/dL 8.5-10.1 Serum or plasma total bilirubin measurement (mass/volu me) 0.4 mg/dL 0.1-1.0 Serum or plasma alkaline phosphatase zohra surement (enzymatic activity/volume) 130 U/L 40-136 Serum or plasma aspartate aminotransfera se measurement (enzymatic activity/volume) 23 U/L 5-34 Serum or plasma alanine aminotransferase measurement (enzymatic activity/volume) 24 U/L 0-55 Serum or plasma protein measurement (mass/volume) 6.9 g/dL 6.4-8.2 Serum or plasma albumin measurement (mass/volume) 3.6 g/dL 3.2-4.5 CALCIUM CORRECTED 9.1 mg/dL 8.5-10.1 Blood CBC with ordered manual differenti al panel - 09/12/19 13:06 Blood leukocytes automated count (number/volume) 12.1 10*3/uL 4.3-11.0 Blood erythrocytes automated count (number/volume) 4.17 10*6/uL 4.35-5.85 Venous blood hemoglobin measurement (mass/volume) 11.3 g/dL 11.5-16.0 Blood hematocrit (volume fraction) 35 % 35-52 Automated erythrocyte mean corpuscular volume 84 [ foz_us] 80-99 Automated erythrocyte mean corpuscular h emoglobin (mass per erythrocyte) 27 pg 25-34 Automated erythrocyte mean corpuscular h emoglobin concentration measurement (mass/volume) 32 g/dL 32-36 Automated erythrocyte distribution width ratio 12. 9 % 10.0- 14.5 Automated blood platelet count (count/volume) 277 10*3/uL 130-400 Automated blood platelet mean volume measurement 9.2 [foz_us] 7.4-10.4 Automated blood neutrophils/100 leukocytes 71 % 42-75 Automated blood lymphocytes/100 leukocytes 19 % 12-44 Blood monocytes/100 leukocytes 7 % NRG Automated blood eosinophils/100 leukocytes 3 % 0-10 Automated blood basophils/100 leukocytes 0 % 0-10 Blood neutrophils automated count (number/volume) 8.6 10*3 1.8-7.8 Blood lymphocytes automated count (number/volume) 2.3 10*3 1.0-4.0 Blood monocytes automated count (number/volume) 0. 7 10*3 0.0-1.0 Automated eosinophil count 0.3 10*3/uL 0 .0-0.3 Automated blood basophil count (count/volume) 0.1 10*3/uL 0.0-0.1 Manual blood segmented neutrophils/100 leukocytes 69 % NRG Blood band neutrophils/100 leukocytes 3 % NRG Manual blood lymphocytes/100 leukocytes 18 % NRG Manual eosinophils/100 leukocytes in nose 1 % NRG Manual blood basophils/100 leukocytes 2 % NRG BMP - 09/16/19 10:18 GLUCOSE 124 mg/dL 65-99 UREA NITROGEN (BUN) 19 mg/dL 7-25 CREATININE 1.82 mg/dL 0.50-1.10 eGFR NON-AFR. EMIRATI 33 mL/min/1.73m2 > OR = 60 eGFR 38 mL/min/1.73m2 > OR = 60 BUN/CREATININE RATIO 10 (calc) 6-22 SODIUM 142 mmol/L 135-146 POTASSIUM 4.0 mmol/L 3.5-5.3 CHLORIDE 102 mmol/L 98-110 CARBON DIOXIDE 27 mmol/L 20-32 CALCIUM 9.4 mg/dL 8.6-10.2 ds-DNA ANTIBODY (DOUBLE STRANDED) - 01/30 08:38 DNA (DS) ANTIBODY <1 IU/mL [facility] [place] CULTURE, URINE - 09/22/19 09:19 CULTURE, URINE, ROUTINE SEE NOTE [facility] - 09/25/19 13:40 GLUCOSE 122 mg/dL 65-99 UREA NITROGEN (BUN) 12 mg/dL 7-25 CREATININE 0.87 mg/dL 0.50-1.10 eGFR NON-AFR. EMIRATI 81 mL/min/1.73m2 > OR = 60 eGFR 94 mL/min/1.73m2 > OR = 60 BUN/CREATININE RATIO NOT APPLICABLE (calc) 6-22 SODIUM 140 mmol/L 135-146 POTASSIUM 3.5 mmol/L 3.5-5.3 CHLORIDE 101 mmol/L 98-110 CARBON DIOXIDE 27 mmol/L 20-32 CALCIUM 8.8 mg/dL 8.6-10.2 [facility] - 10/01/19 17:00 GLUCOSE 172 mg/dL 65-99 UREA NITROGEN (BUN) 10 mg/dL 7-25 CREATININE 0.74 mg/dL 0.50-1.10 eGFR NON-AFR. EMIRATI 99 mL/min/1.73m2 > OR = 60 eGFR 114 mL/min/1.73m2 > OR = 60 BUN/CREATININE RATIO NOT APPLICABLE (calc) 6-22 SODIUM 138 mmol/L 135-146 POTASSIUM 3.4 mmol/L 3.5-5.3 CHLORIDE 101 mmol/L 98-110 CARBON DIOXIDE 29 mmol/L 20-32 CALCIUM 9.2 mg/dL 8.6-10.2 [facility] - 10/09/19 13:52 GLUCOSE 150 mg/dL 65-99 UREA NITROGEN (BUN) 8 mg/dL 7-25 CREATININE 0.65 mg/dL 0.50-1.10 eGFR NON-AFR. EMIRATI 108 mL/min/1.73m2 > OR = 60 eGFR 125 mL/min/1.73m2 > OR = 60 BUN/CREATININE RATIO NOT APPLICABLE (calc) 6-22 SODIUM 138 mmol/L 135-146 POTASSIUM 3.2 mmol/L 3.5-5.3 CHLORIDE 100 mmol/L 98-110 CARBON DIOXIDE 30 mmol/L 20-32 CALCIUM 9.0 mg/dL 8.6-10.2 [facility] - 10/15/19 14:52 GLUCOSE 193 mg/dL 65-99 UREA NITROGEN (BUN) 10 mg/dL 7-25 CREATININE 1.03 mg/dL 0.50-1.10 eGFR NON-AFR. EMIRATI 66 mL/min/1.73m2 > OR = 60 eGFR 77 mL/min/1.73m2 > OR = 60 BUN/CREATININE RATIO NOT APPLICABLE (calc) 6-22 SODIUM 139 mmol/L 135-146 POTASSIUM 3.4 mmol/L 3.5-5.3 CHLORIDE 100 mmol/L 98-110 CARBON DIOXIDE 31 mmol/L 20-32 CALCIUM 9.5 mg/dL 8.6-10.2 [facility] - 10/23/19 15:45 GLUCOSE 156 mg/dL 65-99 UREA NITROGEN (BUN) 9 mg/dL 7-25 CREATININE 0.68 mg/dL 0.50-1.10 eGFR NON-AFR. EMIRATI 106 mL/min/1.73m2 > OR = 60 eGFR 123 mL/min/1.73m2 > OR = 60 BUN/CREATININE RATIO NOT APPLICABLE (calc) 6-22 SODIUM 139 mmol/L 135-146 POTASSIUM 3.5 mmol/L 3.5-5.3 CHLORIDE 100 mmol/L 98-110 CARBON DIOXIDE 29 mmol/L 20-32 CALCIUM 9.1 mg/dL 8.6-10.2 [facility] - 11/24/19 11:33 GLUCOSE 186 mg/dL 65-99 UREA NITROGEN (BUN) 11 mg/dL 7-25 CREATININE 0.67 mg/dL 0.50-1.10 eGFR NON-AFR. EMIRATI 107 mL/min/1.73m2 > OR = 60 eGFR 124 mL/min/1.73m2 > OR = 60 BUN/CREATININE RATIO NOT APPLICABLE (calc) 6-22 SODIUM 137 mmol/L 135-146 POTASSIUM 3.9 mmol/L 3.5-5.3 CHLORIDE 100 mmol/L 98-110 CARBON DIOXIDE 28 mmol/L 20-32 CALCIUM 9.1 mg/dL 8.6-10.2 [facility] - 11/24/19 11:33 WHITE BLOOD CELL COUNT 9.1 Thousand/uL 3 .8-10.8 RED BLOOD CELL COUNT 4.59 Million/uL 3.8 0-5.10 HEMOGLOBIN 12.6 g/dL 11.7-15.5 HEMATOCRIT 38.5 % 35.0-45.0 MCV 83.9 fL 80.0-100.0 MCH 27.5 pg 27.0-33.0 MCHC 32.7 g/dL 32.0-36.0 RDW 13.9 % 11.0-15.0 PLATELET COUNT 277 Thousand/uL 140-400 MPV 10.4 fL 7.5-12.5 ABSOLUTE NEUTROPHILS 5351 cells/uL 1500- 7800 ABSOLUTE LYMPHOCYTES 2630 cells/uL 850-3 900 ABSOLUTE MONOCYTES 337 cells/uL 200-950 ABSOLUTE EOSINOPHILS 710 cells/uL 15-500 ABSOLUTE BASOPHILS 73 cells/uL 0-200 NEUTROPHILS 58.8 % NRG LYMPHOCYTES 28.9 % NRG MONOCYTES 3.7 % NRG EOSINOPHILS 7.8 % NRG BASOPHILS 0.8 % NRG D-DIMER - 11/24/19 11:33 D-DIMER, QUANTITATIVE 0.60 mcg/mL FEU <0 .50 Capillary blood glucose measurement by g lucometer (mass/volume) - 02/02/20 09:37 Capillary blood glucose measurement by glucometer (mas s/volume) 172 mg/dL 70-110 Encounters ACCT No. Visit Date/Time Discharge Status Pt. Type Provider Facility Loc./Unit Complaint [id number] 11/22/2016 08:47:00 Document Registration [id number] 09/08/2014 09:09:00 09/08/2014 23:59: 59 [facility] Outpatient TITA RIDLEY APRN [id number] 06/23/2014 10:54:00 06/23/2014 23:59: 59 [facility] Outpatient TITA RIDLEY APRN [id number] 01/26/2020 14:00:00 01/26/2020 23:59:5 9 [facility] [id number] 11/24/2019 11:45:00 Document Registration [id number] 10/23/2019 15:45:00 Document Registration [id number] 10/15/2019 14:30:00 Document Registration [id number] 10/09/2019 13:45:00 Document Registration [id number] 10/01/2019 11:00:00 Document Registration [id number] 09/25/2019 13:45:00 Document Registration [id number] 09/22/2019 08:00:00 Document Registration [id number] 09/18/2019 08:30:00 Document Registration [id number] 09/16/2019 10:00:00 Document Registration [id number] 06/05/2019 07:45:00 Document Registration [id number] 12/15/2018 12:40:00 Document Registration [id number] 01/27/2020 05:44:00 11:01:00 DIS Outpatient JULIO DOTEO S [facility] PREOP ABNORMAL UTERINE BLEED ING [id number] 10/06/2019 13:37:00 23:59:59 CLS Outpatient YASSINEECH DOTEO S [facility] RAD AUB [id number] 09/12/2019 12:20:00 23:59:59 CLS Outpatient ZEHRA RESENDIZ COACH PROFESSIONAL ATHLETES [facility] LAB FS R5.09 [id number] 09/05/2019 19:00:00 14:00:00 DIS Inpatient VÁZQUEZ DO, SISI [facility] 4TH CELLULITIS L THIGH,FAIL URE OP THERAPY, SEPSIS,NIDD [id number] 09/05/2019 14:33:00 23:59:59 CLS Outpatient Bettina'MELVINA BRANTLEY [employer]ACH [employer]ESSION[employer]LET[employer] [facility] LAB FS LT INGUINAL PAIN [id number] 07/12/2018 09:00:00 018 23:59:59 CLS Preadmit MAGALI ESQUEDA COACH PROFESSIONAL [employer]THLETES [facility] RAD ABDOMINAL PAIN [id number] 04/27/2015 10:52:00 015 23:59:59 CLS Outpatient TITA RIDLEY AUGER SUPERVISOR [facility] RAD [id number] 02/02/2020 11:30:00 P EN Preadmit YASSINECAMILA MCKENNA [facility]
--- OUTSIDE RECORDS SUMMARY | 2020-02-02 09:54 | XMS REPORT ---
Author Aparna Ballard Organization [employer] Address Unknown Phone Unavailable Care Team Providers Care Family Resource Specialist Name Role Phone TITA RIDLEY CP Unavailable Allergies No Known Allergies Problems Problem Type Condition ICD-9 Code Onset Dates Condition Statu s Problem Candidiasis of vulva and vagina 112.1 Active Problem Unspecified hypertrophic and atrophic condition of ski n 701.9 Active Medications No Known Medications Results No Known Results Summary Purpose eClinicalWorks Submission
--- OUTSIDE RECORDS SUMMARY | 2020-02-02 09:54 | XMS REPORT ---
Author Author Aparna RIDLEY Organization [facility] Address [address] [place] [address] Care Team Providers Care Data Abstractor Name Role Phone TITA RIDLEY Unavailable PROBLEMS Type Condition ICD9-CM Code [id number] Code Onset Dates Condition S tatus SNOMED Code Problem Chronic seasonal allergic rhinitis, unspecified trigger J30.2 Active 819045717 Problem Seasonal allergic rhinitis, unspecified allergic rhinitis trigger J30.2 Active 056980182 Problem 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 Active 71650265 Problem Type 2 diabetes mellitus wit hout complication, without long-term current use of insulin E11.9 Active 285317321 Problem Dysthymia F34.1 Active 76777371 Problem Lumbar disc disease M51.9 Active 81003555 ALLERGIES No Information ENCOUNTERS Encounter Location Date Diagnosis [place] [address] [phone] Nov, [place] [address] [address] [place] [id number] [place] [phone] Oct, Chronic seasonal allergic rh initis, unspecified trigger J30.2 ; Cough due to bronchospasm J98.01 and BMI 45.0-49.9, adult Z68.42 [place] [address] [place] [id number] [place] [phone] Oct, Type 2 diabetes mellitus wit hout complication, without long-term current use of insulin E11.9 [place] [address] [place] [id number] [place] [phone] Jun, Type 2 diabetes mellitus wit hout complication, without long-term current use of insulin E11.9 ; Dysthymia F34.1 ; Lumbar disc disease M51.9 ; Chronic seasonal allergic rhinitis, unspecified trigger J30.2 and BMI 40.0-44.9, adult Z68.41 [place] [address] [address] May, [place] [address] [address] Feb, Dysthymia F34.1 ; Lumbar dis c disease M51.9 and Type 2 diabetes mellitus without complication, without long-term current use of insulin E11.9 [place] [address] [address] Feb, Type 2 diabetes mellitus wit hout complication, without long-term current use of insulin E11.9 [place] [address] [address] December, Seasonal allergic rhinitis, unspecified allergic rhinitis trigger J30.[address] [address] Nov, [place] [address] [address] Nov, Dysthymia F34.1 and Pre-diab etes R73.03 [place] [address] [address] Oct, Dysthymia F34.1 [place] [address] [address] Jun, Varicose veins of both lower extremities with complications I83.893 and Lumbar disc disease M51.9 [place] [address] [place] [id number] [place] [phone] Mar, [place] [address] [address] 10 Oct, 2015 [place] [address] [address] 12 Jun, 2015 Insect bite of abdomen, init ial encounter S30.871A and Encounter for immunization Z23 [facility] [address] [id number] [address] [place] [phone] Apr, [facility] [address] [id number] [address] [place] [phone] Apr, 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 ; Lumbar back pain 724.2 ; Pre-diabetes 790.29 and Left knee pain 719.46 [facility] [address] [id number] [address] [place] [phone] Mar, [facility] [address] [id number] [address] [place] [phone] Mar, Cough 786.2 and Drug-induced nausea and vomiting 787.01 [facility] [address] [id number] [address] [place] [phone] Mar, [facility] [address] [id number] [address] [place] [phone] Mar, Elevated glucose 790.29 [facility] [address] [id number] [address] [place] [phone] Mar, [facility] [address] [id number] [address] [place] [phone] Mar, Elevated glucose 790.29 [facility] [address] [id number] [address] [place] [phone] Mar, [facility] [address] [id number] [address] [place] [phone] Mar, Elevated glucose 790.29 and Degenerative arthritis of lumbar spine 721.3 [facility] [address] [id number] [address] [place] [phone] Feb, Elevated glucose 790.29 [facility] [address] [id number] [address] [place] [phone] Feb, Lumbar back pain 724.2 [facility] [address] [id number] [address] [place] [phone] 16 Feb, 2015 Lumbar back pain 724.2 [facility] [address] [id number] [address] [place] [id number] 14 Feb, 2015 Routine gynecological examin ation V72.31 ; Pap test, as part of routine gynecological examination V76.2 ; Breast cancer screening V76.10 ; Irregular menses 626.4 ; Dysmenorrhea 625.3 and Routine physicl lab exam V72.62 [facility] [address] [id number] [address] [place] [phone] Jan, Eustachian tube dysfunction 381.81 [facility] [address] [id number] [address] [place] [phone] Nov, [facility] [address] [id number] [address] [place] [phone] Nov, [facility] [address] [id number] [address] [place] [phone] Sep, [facility] [address] [id number] [address] [place] [phone] Sep, [facility] [address] [id number] [address] [place] [phone] Aug, [facility] [address] [id number] [address] [place] [phone] Aug, [facility] [address] [id number] [address] [place] [phone] Jun, [facility] [address] [id number] [address] [place] [phone] Jun, [facility] [address] [id number] [address] [place] [phone] Jun, [facility] [address] [id number] [address] [place] [phone] Jun, IMMUNIZATIONS No Known Immunizations SOCIAL HISTORY Never Assessed REASON FOR VISIT Refill Request PLAN OF CARE VITAL SIGNS MEDICATIONS Medication Instructions Dosage Frequency Start Date End Date Duration S tatus Test strips Test Strips Test blood sugar (glucocard) Feb, Active Fluoxetine HCl 20 mg Orally Once a day 1 tablet 24h 30 day(s) Active Actos 30 MG Orally Once a day 1 tablet 24h Nov, 30 d ays Active Diclofenac 75 mg Orally 2 times a day, pc 1 capsule Active RESULTS No Results PROCEDURES No Known procedures INSTRUCTIONS MEDICATIONS ADMINISTERED No Known Medications MEDICAL (GENERAL) HISTORY Type Description Date Medical History Elevated Insulin Level Medical History Severe Degenerative Arthritis LS Medical History Chronic Back Pain Medical History Prediabetic 6.1 AIC
--- OUTSIDE RECORDS SUMMARY | 2020-02-02 09:54 | XMS REPORT ---
Author Aparna Salguero Organization [employer] Address Unknown Phone Unavailable Care Team Providers Care Digital Assistant Name Role Phone AVI VILLALOBOS CP Unavailable Allergies, Adverse Reactions, Alerts Substance Reaction Event Type N.K.D.A. Info Not Available Non Drug Allergy Problems Problem Type Condition Code Onset Dates Condition Statu s Problem Varicose veins of both lower extremities with complica tions I83.893 Active Assessment Varicose veins of both lower extremities with co mplications I83.893 Active Problem Lumbar disc disease M51.9 Active Assessment Lumbar disc disease M51.9 Active Medications Medication Code System Code Instructions Start Date End Date Status Dosage Diclofenac [facility] [address]-33 75 mg Orally 2 times a day, pc 1 capsule Procedures Procedure Coding System Code Date Office Visit, Est Pt., Level 3 CPT-4 17330 N ov 2015 Vital Signs Date/Time: Jun 19, 2016 Cardiac Monitoring Heart Rate 84 bpm Weight 290.4 lbs Height 67 in BMI 45.48 Index Blood Pressure Diastolic 83 mmHg Blood Pressure Systolic 142 mmHg Results No Known Results Summary Purpose eClinicalWorks Submission
--- OUTSIDE RECORDS SUMMARY | 2020-02-02 09:54 | XMS REPORT ---
Author Author Aparna MOSES Organization [employer] Address Unknown Phone Unavailable Care Team Providers Care Staff Reporter Name Role Phone MCKAYLA MOSES CP Unavailable Allergies, Adverse Reactions, Alerts Substance Reaction Event Type N.K.D.A. Info Not Available Non Drug Allergy Problems Problem Type Condition Code Onset Dates Condition Statu s Problem Candidiasis of vulva and vagina 112.1 Active Assessment Insect bite of abdomen, initial encounter S30.871A Active Problem Unspecified hypertrophic and atrophic condition of ski n 701.9 Active Assessment Encounter for immunization Z23 A ctive Medications Medication Code System Code Instructions Start Date End Date Status Dosage Diclofenac [facility] [address]-98 35 MG Orally 2 times a day 1 capsule Procedures Procedure Coding System Code Date TDAP (BOOSTRIX) CPT-4 30141 Jun 24, 2015 SINGLE IMMUNIZATION ADMIN CPT-4 15988 Jun Office Visit, Est Pt., Level 2 CPT-4 77544 N 2014 Vital Signs Date/Time: Jun 24, 2015 Temperature 98.3 F Weight 282 lbs Height 67 in BMI 44.16 Index Blood Pressure Diastolic 72 mmHg Blood Pressure Systolic 112 mmHg Cardiac Monitoring Heart Rate 80 bpm Results No Known Results Immunizations Vaccine Administration Date TDAP (BOOSTRIX) Jun 24, 2015 Summary Purpose eClinicalWorks Submission
--- OUTSIDE RECORDS SUMMARY | 2020-02-02 09:54 | XMS REPORT ---
Author Aparna Bauman Organization [employer] Address Unknown Phone Unavailable Care Team Providers Care Print Finishing Worker Name Role Phone DAVE ABREU CP Unavailable Allergies, Adverse Reactions, Alerts Substance Reaction Event Type N.K.D.A. Info Not Available Non Drug Allergy Problems Problem Type Condition ICD-9 Code Onset Dates Condition Statu s Problem Candidiasis of vulva and vagina 112.1 Active Assessment Cough 786.2 Active Problem Unspecified hypertrophic and atrophic condition of ski n 701.9 Active Assessment Drug-induced nausea and vomiting 787.01 Active Medications Medication Code System Code Instructions Start Date End Date Status Dosage Azithromycin [facility] [address]-69 250 MG Orally Once a day MarApr 14, 2015 2 tablets on the first day, then 1 tablet daily for 4 days MetFORMIN HCl [facility] [address]-58 500 MG Orally O nce a day in evening x7 days then change to 2 tabs in the evening Mar 26, 2015 1 tablet with evening meal Diclofenac [facility] [address]-22 35 MG Orally 2 times a day 1 capsule Procedures Procedure Coding System Code Date Office Visit, Est Pt., Level 3 CPT-4 84503 A 2014 Vital Signs Date/Time: Apr 09, 2015 Temperature 97.8 F Weight 288.5 lbs Height 67 in BMI 45.18 Index Blood Pressure Diastolic 80 mmHg Blood Pressure Systolic 138 mmHg Cardiac Monitoring Heart Rate 76 bpm Results No Known Results Summary Purpose eClinicalWorks Submission
--- OUTSIDE RECORDS SUMMARY | 2020-02-02 09:54 | XMS REPORT ---
Author Aparna Ballard Organization [employer] Address Unknown Phone Unavailable Care Team Providers Care Automotive Brake Technician Name Role Phone TITA RILDEY CP Unavailable Allergies No Known Allergies Problems Problem Type Condition ICD-9 Code Onset Dates Condition Statu s Problem Candidiasis of vulva and vagina 112.1 Active Problem Unspecified hypertrophic and atrophic condition of ski n 701.9 Active Medications No Known Medications Results No Known Results Summary Purpose eClinicalWorks Submission
--- OUTSIDE RECORDS SUMMARY | 2020-02-02 09:54 | XMS REPORT ---
Author Author Aparna RIDELY [facility] Address [address] [place] [address] Care Team Providers Care Agent Licensing Clerk Name Role Phone TITA RIDLEY Unavailable PROBLEMS Type Condition ICD9-CM Code [id number] Code Onset Dates Condition S tatus SNOMED Code Problem Seasonal allergic rhinitis, unspecified allergic rhinitis trigger J30.2 Active 616894619 Problem Dysthymia F34.1 Active 71073466 Problem Type 2 diabetes mellitus wit hout complication, without long-term current use of insulin E11.9 Active 817649316 Problem Lumbar disc disease M51.9 Active 28252161 Problem 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 Active 69596293 ALLERGIES No Known Allergies SOCIAL HISTORY Never Assessed PLAN OF CARE Activity Details Follow Up 3-4 weeks Reason:BH/DM VITAL SIGNS Height 67 in 2016-10-25 Weight 294.3 lbs 2016-10-25 Temperature 98.3 degrees Fahrenheit 2016-10-25 Heart Rate 82 bpm 2016-10-25 Respiratory Rate 20 2016-10-25 BMI 46.09 kg/m2 2016-10-25 Blood pressure systolic 132 mmHg 2016-10-25 Blood pressure diastolic 86 mmHg 2016-10-25 MEDICATIONS Medication Instructions Dosage Frequency Start Date End Date Duration S tatus Diclofenac 75 mg Orally 2 times a day, pc 1 capsule Active Fluoxetine HCl 10 MG Orally Once a day 1 Capsule in the morning 24h Oct, 30 day(s) Active RESULTS No Results PROCEDURES No Known procedures IMMUNIZATIONS No Known Immunizations MEDICAL (GENERAL) HISTORY Type Description Date Medical History Elevated Insulin Level Medical History Severe Degenerative Arthritis LS Medical History Chronic Back Pain Medical History Prediabetic 6.1 AIC
--- OUTSIDE RECORDS SUMMARY | 2020-02-02 09:54 | XMS REPORT ---
Author Aparna Ballard Organization [employer] Address Unknown Phone Unavailable Care Team Providers Care Group Leader Semiconductor Testing Name Role Phone TITA RIDLEY CP Unavailable Allergies No Known Allergies Problems Problem Type Condition Code Onset Dates Condition Statu s Problem Candidiasis of vulva and vagina 112.1 Active Problem Unspecified hypertrophic and atrophic condition of ski n 701.9 Active Medications No Known Medications Results No Known Results Summary Purpose eClinicalWorks Submission
--- OUTSIDE RECORDS SUMMARY | 2020-02-02 09:54 | XMS REPORT ---
Author Aparna Ballard Organization [employer] Address Unknown Phone Unavailable Care Team Providers Care Automobile Racer Name Role Phone TITA RIDLEY CP Unavailable Allergies, Adverse Reactions, Alerts Substance Reaction Event Type N.K.D.A. Info Not Available Non Drug Allergy Problems Problem Type Condition ICD-9 Code Onset Dates Condition Statu s Problem Candidiasis of vulva and vagina 112.1 Active Assessment Degenerative arthritis of lumbar spine 721.3 Active Problem Unspecified hypertrophic and atrophic condition of ski n 701.9 Active Assessment Left knee pain 719.46 Active Assessment Lumbar back pain 724.2 Active Assessment Pre-diabetes 790.29 Active Medications Medication Code System Code Instructions Start Date End Date Status Dosage Diclofenac [facility] [address]-08 35 MG Orally 2 times a day 1 capsule Valium [facility] [address]-64 10 MG Orally Once a day Apr 21, 2015 as directed 30 minutes prior to procedure Procedures Procedure Coding System Code Date Office Visit, Est Pt., Level 4 CPT-4 20198 S ept 2014 Vital Signs Date/Time: Apr 21, 2015 Temperature 98.4 F Weight 282.7 lbs Height 67 in BMI 44.27 Index Blood Pressure Diastolic 82 mmHg Blood Pressure Systolic 124 mmHg Cardiac Monitoring Heart Rate 80 bpm Results No Known Results Summary Purpose eClinicalWorks Submission
[2020-02-02] MEDS ORDERED: SEVOFLURANE (ULTANE) 15 ML INHAL SOLN ONE ×2 (09:59→11:08)
[2020-02-02] MEDS ORDERED: ONDANSETRON 4 MG/2 ML (SDV) Z0FRAN ONE (09:59)
[2020-02-02] MEDS ORDERED: LIDOCAINE PF 2% 5 ML (XYLOCAINE) VIAL ONE (09:59)
[2020-02-02] MEDS ORDERED: proPOfol 200 MG/20 ML (DIPRIVAN) VIAL IV ONE (09:59)
[2020-02-02] MEDS ORDERED: MIDAZOLAM 2 MG/2 ML (VERSED) VIAL ONE (10:00)
[2020-02-02] MEDS ORDERED: fentaNYL INJECTION 100 MCG/2 ML AMP ONE (10:00)
[2020-02-02] MEDS ORDERED: ASPI-999 PO (10:05)
[2020-02-02] MEDS ORDERED: BUPIVACAINE 0.25% 30 ML (SENSORCAINE) VIAL ONE (10:11)
[2020-02-02 10:28] LABS: BASOPHILS % (AUTO) 0 % (0-10); EOSINOPHILS # (AUTO) 0.7 10^3/uL (0.0-0.3); EOSINOPHILS % (AUTO) 8 % (0-10); HEMATOCRIT 39 % (35-52); HEMOGLOBIN 13.1 G/DL (11.5-16.0); LYMPHOCYTES # (AUTO) 2.4 X 10^3 (1.0-4.0); LYMPHOCYTES % (AUTO) 29 % (12-44); MEAN CORPUSCULAR HEMOGLOBIN 28 PG (25-34); MEAN CORPUSCULAR HGB CONC 34 G/DL (32-36); MEAN CORPUSCULAR VOLUME 82 FL (80-99); MEAN PLATELET VOLUME 9.9 FL (7.4-10.4); MONOCYTES # (AUTO) 0.3 X 10^3 (0.0-1.0); MONOCYTES % (AUTO) 4 % (0-12); NEUTROPHILS # (AUTO) 4.8 X 10^3 (1.8-7.8); NEUTROPHILS % (AUTO) 59 % (42-75); PLATELET COUNT 229 10^3/uL (130-400); RED CELL DISTRIBUTION WIDTH 13.2 % (10.0-14.5); WHITE BLOOD COUNT 8.3 10^3/uL (4.3-11.0)
--- NOTE | 2020-02-02 10:45 | Progress Note-Pre Operative ---
Pre-Operative Progress Note H&P Reviewed The H&P was reviewed, patient examined and no changes noted. Date Seen by Provider: Feb 02, 2020 Time Seen by Provider: 10:38 Date H&P Reviewed: Feb 02, 2020 Time H&P Reviewed: :38 Pre-Operative Diagnosis: AUB, BMI 48.8 TEO KIM DO Feb 02, 2020 10:45
[2020-02-02] MEDS ORDERED: IBUP-1773 PO (10:54)
--- NOTE | 2020-02-02 10:56 | Discharge Inst-Women's Service ---
Discharge Inst-Women's Serv Depart Medication/Instructions New, Converted or Re-Newed RX: RX on Chart Problems Reviewed?: Yes Consults/Follow Up Additional Follow Up: Yes Orders/Referrals Dr. Kim in 2-3 weeks Activity Activity: Activity as Tolerated Driving Instructions: No Driving for 1 Week NO SMOKING: NO SMOKING Nothing Inside Vagina: No Douching, No [place], No Tampons Diet Discharge Diet: No Restrictions Symptoms to Report to : Bleeding Excessive, Pain Increased, Fever Over 101 Degrees F, Vaginal Bleeding Increase, Questions/Concerns For Any Problems or Questions: Contact Your Physician TEO KIM DO Feb 02, 2020 10:56
[2020-02-02] MEDS ORDERED: D5 LR IV SOLUTION 1,000 ML IV SCH (10:57)
[2020-02-02] MEDS ORDERED: ONDANSETRON 4 MG/2 ML (SDV) Z0FRAN IVP PRN ×2 (11:00→11:30)
[2020-02-02] MEDS ORDERED: KETOROLAC 30 MG/ML VIAL IVP ONE (11:00)
[2020-02-02] MEDS ORDERED: KETOROLAC 30 MG/ML VIAL ONE (11:02)
[2020-02-02] MEDS ORDERED: morphine INJ 10 MG/ML 1ML (SYR OR VIAL) IVP ONE (11:30)
[2020-02-02] MEDS ORDERED: PROMETHAZINE INJ 25 MG/ML (PHENERGAN) AMP IVP ONE (11:30)
[2020-02-02] MEDS ORDERED: HYDROmorphone 2 MG/ML VIAL (DILAUDID) IV ONE (11:30)
--- NOTE | 2020-02-02 14:47 | Anesthesia-General Post-Op ---
General Patient Condition Mental Status/LOC: Same as Preop Cardiovascular: Satisfactory Nausea/Vomiting: Absent Respiratory: Satisfactory Pain: Controlled Complications: Absent Post Op Complications Complications None Follow Up Care/Instructions Patient Instructions None needed. Anesthesia/Patient Condition Patient Condition Patient is doing well, no complaints, stable vital signs, no apparent adverse anesthesia problems. No complications reported per nursing. CHRIS OSEGUERA CRNA Feb 02, 2020 14:47
--- NOTE | 2020-02-02 15:57 | OPERATIVE REPORT ---
DATE OF SERVICE: PREOPERATIVE DIAGNOSES: 1. A 44-year-old female with abnormal uterine bleeding. 2. BMI greater than 45. POSTOPERATIVE DIAGNOSES: 1. A 44-year-old female with abnormal uterine bleeding. 2. BMI greater than 45. PROCEDURE: D and C. SURGEON: Carlos Manuel Kothari DO ANESTHESIA: General LMA. ESTIMATED BLOOD LOSS: Minimal. URINE OUTPUT: 200 mL clear at the end of the procedure. FLUIDS: 800 mL lactated Ringer's solution. FINDINGS: Grossly normal-appearing external female genitalia with a small to moderate amount of endometrial curettings collected on endometrial curetting. SPECIMEN SENT: Endometrial curettings. INDICATIONS FOR PROCEDURE: This 44-year-old female with consultation in my office for heavy abnormal uterine bleeding. I discussed with the patient the physiology of her weight and the fact that might have on her bleeding pattern as well as her increased risk for endometrial cancer and hyperplasia. I discussed with the patient need for endometrial sampling. We discussed doing this either in the office or under anesthesia. We elected to do under anesthesia for possible curative benefit as well as diagnostic benefit as well. Risks of the procedure were discussed with the patient in detail and after all of her questions were answered, consent was obtained in the preoperative area, the patient was taken to the operating room. OPERATIVE REPORT IN DETAIL: Once in the operating room, anesthesia was found to be adequate, placed in dorsal lithotomy position, prepped and draped in normal sterile fashion. Timeout was performed. A straight catheterization is used to drain the bladder. A weighted speculum was inserted in the patient's vagina. Right angle retractor was used to visualize the cervix. It was grasped at 12 o'clock position using a long Allis clamp. A paracervical block was then performed at 3 and 9 o'clock positions on the cervix using 5 mL of 0.25% Marcaine at each injection site. Care was taken to aspirate before injecting. I then gently sound the uterine cavity. Depth was found to be approximately 8 cm, then gently dilated the cervix using Rosalind dilator. Using Hanks dilators to maximum dilatation approximately 1.2 cm, at which point I performed a gentle curettage of the endometrial cavity clearing of all excess endometrial tissue until a slight uterine cry is felt on curetting. At which point, this tissue was collected and sent as endometrial curettings. I did remove other instruments from the patient's vagina. The patient tolerated the procedure well and sent to recovery in stable condition. Lap and sponge counts were correct at the end of the procedure. Instrument counts correct as well. Job ID: [id number] DocumentID: [id number] Dictated Date: 02/02/2020 11:19:11 Sound Engineer Audio Control Date: 02/02/2020 15:57:11 Dictated By: DO CARMEN BAKER
== END 2020-02-02 13:10 | disposition home or self-care (01) ==
LOC: SDC 09:22
PROVIDERS: ATTEND Obstetrics & Gynecology
DX: N84.0 Polyp of corpus uteri (principal); N93.8 Other specified abnormal uterine and vaginal bleeding; E66.01 Morbid (severe) obesity due to excess calories; Z80.49 Family history of malignant neoplasm of other genital organs; I73.9 Peripheral vascular disease, unspecified; I10 Essential (primary) hypertension; E11.9 Type 2 diabetes mellitus without complications; Z79.899 Other long term (current) drug therapy; Z68.42 Body mass index [BMI] 45.0-49.9, adult; Z79.82 Long term (current) use of aspirin
CPT/HCPCS: 36415; 82962; 84703; 85025; 86850; 86900; 86901; 87081; 88305; 94664

== ENCOUNTER 2020-03-25 05:41 | Outpatient (CLI) | payer BC ==
[~2020-03-25] VITALS: Ht 170.2 cm; Wt 142.3 kg
[~2020-03-25 05:41] MED LIST changes: +ASPI-999 PO; +IBUP-1773 PO
[2020-03-29] MEDS ORDERED: SIME80TA16 PO (07:18)
[2020-03-29] MEDS ORDERED: HYDR-34 PO (07:18)
[2020-03-29] MEDS ORDERED: IBUP-844 PO (07:18)
[2020-03-29] MEDS ORDERED: DCS100C PO (07:18)
== END 2020-03-25 11:36 | disposition home or self-care (01) ==
LOC: PREOP 05:41 → EDSTATUS 13:00
PROVIDERS: ATTEND Obstetrics & Gynecology
DX: Z01.818 Encounter for other preprocedural examination (principal)

== ENCOUNTER 2020-03-29 06:16 | Day surgery (SDC) | payer BC ==
[2020-03-29] VITALS (9 sets, daily range): BP systolic 106–141; BP diastolic 46–80
[~2020-03-29] VITALS: Ht 170.2 cm; Wt 142.3 kg
[2020-03-29] MEDS ORDERED: LACTATED RINGERS 1,000 ML IV PRN (06:21)
[2020-03-29] MEDS ORDERED: LACTATED RINGERS 1,000 ML IV ONE (06:21)
[2020-03-29] MEDS ORDERED: ceFAZolin INJECTION 1,000 MG in WATER (STERILE) FOR INJECTION 10 ML IV ONE (06:30)
[2020-03-29] MEDS ORDERED: metroNIDAZOLE 500MG/100ML IVPB 100 ML IV ONE (06:30)
[2020-03-29] MEDS ORDERED: SEVOFLURANE (ULTANE) 15 ML INHAL SOLN ONE ×3 (06:42→09:23)
[2020-03-29] MEDS ORDERED: proPOfol 200 MG/20 ML (DIPRIVAN) VIAL IV ONE (06:42)
[2020-03-29] MEDS ORDERED: ONDANSETRON 4 MG/2 ML (SDV) Z0FRAN ONE (06:42)
[2020-03-29] MEDS ORDERED: ROCURONIUM 10 MG/ML 5 ML SYRINGE IV ONE ×2 (06:42→08:10)
[2020-03-29] MEDS ORDERED: LIDOCAINE PF 2% 5 ML (XYLOCAINE) VIAL ONE (06:42)
[2020-03-29] MEDS ORDERED: MIDAZOLAM 2 MG/2 ML (VERSED) VIAL ONE (06:43)
[2020-03-29] MEDS ORDERED: fentaNYL INJECTION 100 MCG/2 ML AMP ONE ×2 (06:43→07:40)
[2020-03-29] MEDS ORDERED: ceFAZolin 2 GM IV Premixed 50 ML ONE (07:01)
[2020-03-29 07:07] LABS: BASOPHILS % (AUTO) 0 % (0-10); EOSINOPHILS # (AUTO) 0.7 10^3/uL (0.0-0.3); EOSINOPHILS % (AUTO) 7 % (0-10); HEMATOCRIT 40 % (35-52); HEMOGLOBIN 13.4 G/DL (11.5-16.0); LYMPHOCYTES # (AUTO) 2.5 X 10^3 (1.0-4.0); LYMPHOCYTES % (AUTO) 25 % (12-44); MEAN CORPUSCULAR HEMOGLOBIN 28 PG (25-34); MEAN CORPUSCULAR HGB CONC 33 G/DL (32-36); MEAN CORPUSCULAR VOLUME 83 FL (80-99); MEAN PLATELET VOLUME 9.8 FL (7.4-10.4); MONOCYTES # (AUTO) 0.5 X 10^3 (0.0-1.0); MONOCYTES % (AUTO) 5 % (0-12); NEUTROPHILS # (AUTO) 6.5 X 10^3 (1.8-7.8); NEUTROPHILS % (AUTO) 63 % (42-75); PLATELET COUNT 272 10^3/uL (130-400); RED CELL DISTRIBUTION WIDTH 13.2 % (10.0-14.5); WHITE BLOOD COUNT 10.2 10^3/uL (4.3-11.0)
--- NOTE | 2020-03-29 07:07 | Progress Note-Pre Operative ---
Pre-Operative Progress Note H&P Reviewed The H&P was reviewed, patient examined and no changes noted. Date Seen by Provider: Mar 29, 2020 Time Seen by Provider: 07:05 Date H&P Reviewed: Mar 29, 2020 Time H&P Reviewed: 07:05 Pre-Operative Diagnosis: DUB, Morbid obestiy TEO KIM DO Mar 29, 2020 07:07
[2020-03-29] MEDS ORDERED: LACTATED RINGERS 1,000 ML IV SCH (07:08)
--- NOTE | 2020-03-29 07:13 | Discharge Inst-Women's Service ---
Discharge Inst-Women's Serv Depart Medication/Instructions New, Converted or Re-Newed RX: RX on Chart Final Diagnosis POD 1 RATLH Problems Reviewed?: Yes Consults/Follow Up Additional Follow Up: Yes Orders/Referrals Dr. Kothari in 7-10 days and in 8 weeks Activity Activity: Activity as Tolerated Driving Instructions: No Driving for 1 Week NO SMOKING: NO SMOKING Nothing Inside Vagina: No Douching, No [place], No Tampons Diet Discharge Diet: No Restrictions Symptoms to Report to : Bleeding Excessive, Pain Increased, Fever Over 101 Degrees F, Vaginal Bleeding Increase, Questions/Concerns Skin/Wound Care Infection Signs and Symptoms: Increased Redness, Foul Odor of Wound, Increased Drainage, Skin Itchy or Has a Rash, Increased Swelling, Temperature Above 101 F Operative Area Clean and Dry: Keep Incision Clean/Dry Stitches/Marguerite/Dermabond: Dermabond, Care of Stitches Bathing Instructions: TEO Candelaria DO Mar 29, 2020 07:13
[2020-03-29] MEDS ORDERED: DOCUSATE SODIUM 100 MG (COLACE) CAP PO PRN (07:15)
[2020-03-29] MEDS ORDERED: KETOROLAC 30 MG/ML VIAL IV PRN (07:15)
[2020-03-29] MEDS ORDERED: CHLORASEPTIC LOZENGE MM PRN (07:15)
[2020-03-29] MEDS ORDERED: ONDANSETRON 4 MG/2 ML (SDV) Z0FRAN IV PRN (07:15)
[2020-03-29] MEDS ORDERED: ANTACID SUSP 30 ML UDC (MYLANTA) PO PRN (07:15)
[2020-03-29] MEDS ORDERED: SIMETHICONE 80 MG (MYLICON) CHEW PO PRN (07:15)
[2020-03-29] MEDS ORDERED: HYDROcodone/APAP 7.5 MG/325 MG (LORTAB, LORCET PLUS) TABLET PO PRN (07:15)
[2020-03-29] MEDS ORDERED: ZOLPIDEM 5 MG (AMBIEN) TAB PO PRN (07:15)
[2020-03-29] MEDS ORDERED: HYDR-34 PO (07:18)
[2020-03-29] MEDS ORDERED: SIME80TA16 PO (07:18)
[2020-03-29] MEDS ORDERED: DCS100C PO (07:18)
[2020-03-29] MEDS ORDERED: IBUP-844 PO (07:18)
[2020-03-29] MEDS ORDERED: ceFAZolin 2 GM IV Premixed 50 ML IV ONE (07:30)
[2020-03-29] MEDS ORDERED: BUPIVACAINE 0.25% 30 ML (SENSORCAINE) VIAL ONE (07:36)
[2020-03-29] MEDS ORDERED: GLYCOPYRROLATE 0.2 MG/ML (ROBINUL) 2 ML VIAL ONE (08:48)
[2020-03-29] MEDS ORDERED: NEOSTIGMINE 3 MG/3 ML VIAL ONE (08:48)
[2020-03-29] MEDS ORDERED: KETOROLAC 30 MG/ML VIAL ONE (09:12)
[2020-03-29] MEDS ORDERED: ONDANSETRON 4 MG/2 ML (SDV) Z0FRAN IVP PRN (09:45)
[2020-03-29] MEDS ORDERED: HYDROmorphone 2 MG/ML VIAL (DILAUDID) IV ONE (09:45)
--- NOTE | 2020-03-29 10:40 | NUR ---
To room 304 per bed from [facility] following surgery this am. Drowsy but responds to voice commands. IV to right wrist patent and infusing at 125cc/hr per IV pump. [address], with no bleeding or drainage noted. O2 on at 2 liters by nasal cannula since is so sleepy. SCDs in place and connected. Marshall catheter in place, draining yellow urine. at bedside. Call light in reach. Does not complain of pain at this time.
--- NOTE | 2020-03-29 12:15 | NUR ---
Report to Tom Chavez RN
--- NOTE | 2020-03-29 12:30 | NUR ---
FINE CATH REMOVED, IV HEP LOCKED, PERICARE COMPLETED BY RN PAD AND PANTIES ON, PT ASSISTED TO CHAIR WITH RN ASSISTANCE, NO C/O NOTED.
--- NOTE | 2020-03-29 14:00 | NUR ---
PT UP TO BR, VOIDED WITHOUT DIFFICULTY.
--- NOTE | 2020-03-29 14:50 | NUR ---
DISCHARGE INSTRUCTIONS EXPLAINED TO PT/SO, NO QUESTIONS NOTED, PT VERBALIZES UNDERSTANDING. IV DC'D, PT TO FOLLOW UP WITH DR KIM SCHEDULED.
--- NOTE | 2020-03-29 16:35 | OPERATIVE REPORT ---
DATE OF SERVICE: PREOPERATIVE DIAGNOSES: 1. A 44-year-old female with dysmenorrhea. 2. Dysfunctional uterine bleeding. 3. Morbid obesity. POSTOPERATIVE DIAGNOSES: 1. A 44-year-old female with dysmenorrhea. 2. Dysfunctional uterine bleeding. 3. Morbid obesity. PROCEDURE: Robotic-assisted total laparoscopic hysterectomy with bilateral salpingectomy, weighing 427 grams. SURGEON: Carlos Manuel Kothari DO VICE PROVOST: Ana Lilia Obando DNP, was necessary for manipulation and retraction of the procedure. ANESTHESIA: General endotracheal. ESTIMATED BLOOD LOSS: 250 mL. URINE OUTPUT: 80 mL clear at the end of the procedure. FLUIDS: 1700 mL lactated Ringer's solution. FINDINGS: A bulky and hyperemic uterus. Grossly normal appearing bilateral fallopian tubes and ovaries. SPECIMEN SENT: Uterus, bilateral fallopian tubes and ovaries. INDICATIONS FOR PROCEDURE: This 44-year-old female with a consultation in my office for dysfunctional uterine bleeding. She underwent more conservative measures in the past including hormonal therapy and D and C. Despite her more conservative measures, she continued to have heavy heavy bleeding that was debilitating in nature. She returned to my office for a more definitive therapy and was quite insistent upon moving forward with more definitive measures in the form of hysterectomy. Risks of this procedure were discussed with the patient in detail including risk of bleeding, infection, damage to surrounding structures including, but not limited to bowel, bladder, ureter, kidneys, possible need for reoperation, postoperative complications that may occur, possible need for reoperation, recovery timeframe, risk from anesthesia, possible need for blood transfusion up to and even risk of . After everything was discussed with the patient in detail, consent was obtained in the preoperative area and the patient was taken to the operating room. OPERATIVE REPORT IN DETAIL: Once in the operating room, anesthesia was found to be adequate, placed in dorsal lithotomy position, prepped and draped in normal sterile fashion. A timeout was performed. Marshall catheter was placed using sterile technique. Weighted speculum was inserted to the patient's vagina. Right angle retractor was utilized. Cervix was grasped at 12 o'clock position using a long Allis clamp and 0 Vicryl suture was then placed in anterior lip of the cervix, used as my retraction point. I then gently sound the uterine cavity, depth was found to be 10 cm. I placed a 10 cm Liane uterine manipulator tip and a 4 cm colpotomy ring and assembled the Liane and deployed the colpotomy ring and the manipulator tip in the appropriate fashion. The manipulator tip goes into the uterus and the colpotomy ring comes around the vaginal fornix after which bimanual manipulation is noted on exam. I then removed all the other instruments from the patient's vagina, performed change of gloves and took my attention to the abdomen where supraumbilically infiltrated this area using 0.25% Marcaine and make a 8 mm incision with a knife and directed Veress needle through the incision until intraperitoneal placement was confirmed using saline drop test; however, upon attempted insufflation, unable to do so due to the patient's body habitus, I go in the left upper quadrant mid costal line, subcostal and I am able to achieve intraperitoneal placement and confirmed using saline drop test. Opening pressure of 5 mmHg was noted, proceeded to maximum pressure of 15 mmHg, at which point I removed the Veress needle and introduced an 8 mm trocar through the supraumbilical incision site. Once this trocar was in place, I am able to confirm intraperitoneal placement using the da Terry laparoscope. There was no evidence of damage upon my entry site. I then placed two lateral trocars. These were 8 mm trocars under direct visualization of laparoscope. Once these were in place, I had the patient placed in steep Trendelenburg. I also placed a right upper quadrant trocar for retraction as well. This is a 12 mm trocar to allow for a fan laparoscopic retractor to be used. Once this is all in place and bringing the da Terry robot and docked in appropriate fashion, placing the vessel sealer in the left hand and monopolar maci in the right hand performed the following dissection bilaterally. Starting at the uteroovarian ligament, I bipolar cauterized and transected this using vessel sealer. I then created a window in the mesosalpinx taking this laterally and amputating fallopian tube from the surrounding blood supply. I then grasped the round ligament, bipolar cauterized and transected using the vessel sealer. I then grasped the entire broad ligament, which I bipolar cauterized and transected using vessel sealer down to the level of the lower uterine segment, at which point I the anterior and posterior leaflets of the broad ligament. The anterior leaflet was taken around to the anterior vaginal fornix. The posterior leaflet was taken around to the posterior vaginal fornix. This allows me to skeletonize the uterine vessels laterally, which I bipolar cauterized and then transected using the vessel sealer. I then created a colpotomy at 12 o'clock position using monopolar maci and took this circumferentially around the vaginal fornix, amputating the cervix away from the vagina. The entire specimen was then removed through the vagina. I then proceeded with closing the vaginal cuff and the lateral vaginal apices. I closed the vaginal cuff using 2-0 Vicryl suture in a plncey-ax-syoyu fashion colposuspending the uterosacral ligaments. I then closed the remainder of the vaginal cuff using 2-0 V-Loc in a running fashion, after which no active bleeding noted from any of my dissection planes. I then undocked the da Terry robot and proceeded with remainder of the case laparoscopically. I copiously irrigated the pelvis using normal saline. Once again, there was no active bleeding noted from any of my dissection planes. I placed Surgiflo hemostatic agent over all my planes of dissection to ensure excellent postoperative hemostasis. I then had the patient taken out of steep Trendelenburg where we removed all the trocars under direct visualization of the laparoscope, except for the right upper quadrant trocar, which was reapproximated using Sherif-Vivek and 0 Vicryl suture to reapproximate the fascia. The skin is then reapproximated after the last trocars are removed. All the trocar sites were reapproximated using 4-0 Monocryl in interrupted subcuticular stitches. Dermabond was applied to incision. Band-Aids were placed over these as well. Marshall catheter was left in place. The patient tolerated the procedure well and sent to recovery area in stable condition. Lap and sponge counts were correct at the end of the procedure. Instrument count was correct as well. Two grams of Ancef and 500 mg of Flagyl were given preoperatively for infection prophylaxis. Job ID: [id number] DocumentID: [id number] Dictated Date: 03/29/2020 11:03:44 Canteen Attendant Date: 03/29/2020 16:34:41 Dictated By: DO CARMEN BAKER
[2020-03-30] MEDS ORDERED: IBUPROFEN 600 MG (MOTRIN) TAB PO SCH
--- NOTE | 2020-03-30 08:00 | Anesthesia-General Post-Op ---
General Patient Condition Mental Status/LOC: Same as Preop Cardiovascular: Satisfactory Nausea/Vomiting: Absent Respiratory: Satisfactory Pain: Controlled Complications: Absent Post Op Complications Complications None Follow Up Care/Instructions Patient Instructions None needed. Anesthesia/Patient Condition Patient Condition Patient is doing well, no complaints, stable vital signs, no apparent adverse anesthesia problems. No complications reported per nursing. ALENA GIL CRNA Mar 30, 2020 08:00
== END 2020-03-29 15:15 | disposition home or self-care (01) ==
LOC: SDC 06:16 → WS 10:40 → SDC 15:15
PROVIDERS: ATTEND Obstetrics & Gynecology
DX: D25.1 Intramural leiomyoma of uterus (principal); D25.2 Subserosal leiomyoma of uterus; N80.0 Endometriosis of uterus; N83.8 Other noninflammatory disorders of ovary, fallopian tube and broad ligament; E66.01 Morbid (severe) obesity due to excess calories; Z11.2 Encounter for screening for other bacterial diseases; Z68.42 Body mass index [BMI] 45.0-49.9, adult; E11.9 Type 2 diabetes mellitus without complications; Z79.84 Long term (current) use of oral hypoglycemic drugs; Z79.899 Other long term (current) drug therapy; Z79.82 Long term (current) use of aspirin
CPT/HCPCS: 36415; 82962; 85025; 86850; 86900; 86901; 87081